=== PATIENT | female | born 1995 | race Caucasian/White ===

== ENCOUNTER → 2019-06-07 11:37 | Outpatient (BNVA) | payer MEDICAID, SELFPAY | PROVIDERS: Family Provider Internal Medicine; PCP Internal Medicine; Visit Provider Counselor Professional | DX: F41.1 Generalized anxiety disorder (principal) | CPT/HCPCS: 90834 ==

== ENCOUNTER → 2019-06-14 08:48 | Outpatient (BNVA) | payer MEDICAID, SELFPAY | PROVIDERS: Family Provider Internal Medicine; PCP Internal Medicine; Visit Provider Counselor Professional | DX: F43.12 Post-traumatic stress disorder, chronic (principal) | CPT/HCPCS: 90834 ==

== ENCOUNTER → 2019-06-21 09:13 | Outpatient (BNVA) | payer MEDICAID, SELFPAY | PROVIDERS: Family Provider Internal Medicine; PCP Internal Medicine; Visit Provider Counselor Professional | DX: F41.1 Generalized anxiety disorder (principal) | CPT/HCPCS: 90834 ==

== ENCOUNTER → 2019-07-03 10:24 | Outpatient (BNVA) | payer MEDICAID, SELFPAY | PROVIDERS: Family Provider Internal Medicine; PCP Internal Medicine; Visit Provider Nurse Practitioner Women's Health | DX: N94.6 Dysmenorrhea, unspecified (principal) | CPT/HCPCS: 81025 ==

== ENCOUNTER → 2019-07-17 10:39 | Outpatient (BNVA) | payer MEDICAID, SELFPAY | PROVIDERS: Family Provider Internal Medicine; PCP Internal Medicine; Visit Provider Counselor Professional | DX: F43.12 Post-traumatic stress disorder, chronic (principal) | CPT/HCPCS: 90834 ==

== ENCOUNTER 2019-07-29 19:52 | Emergency (ER) | payer MEDICAID, SELFPAY ==
[2019-07-29 19:56] VITALS: BP 130/99; PULSE 120; RESP 16; TEMP 37.1; O2SAT 96; BMI 25.8
--- NOTE | 2019-07-29 20:14 | ED_ITS ---
Entered by Rowena Gray, acting as scribe for Jimy Granado DO Jul 29, 2019 19:52 HPI - Head Injury General: Chief complaint: Head Injury Stated complaint: hit head Time Seen by Provider: 07/29/19 20:13 Source: patient Mode of arrival: ambulatory Limitations: no limitations History of Present Illness: HPI Narrative: 24 yo Female presents to ED with complaint of head injury. Pt states that one of her friends told her that she didn't deserve to be happy and she got upset. Pt states that she went into her bathroom and hit her head on the wall. Pt states that she hit the back of her neck on the towel bar and is now experiencing pain. Pt states that she has vomited once since she hit her head. MD Complaint: head injury Onset (ago): hour(s) Mechanism of Injury: other (self injury) Place: home Loss of Consciousness: no Location of injury: occipital Severity scale (1-10): 5 Radiation: neck Other Injuries: none Associated symptoms: Reports vomiting; Deny confusion, nausea, neck pain, syncope or vertigo Review of Systems Const: Denies: fever, chills, body aches, fatigue, malaise or night sweats Eyes: Denies: change in vision or blurry vision ENMT: Denies: throat pain, oral sores/lesions, dental pain, nasal discharge or nasal congestion Card: Denies: chest pain, palpitations, irregular heart rhythm, edema, syncope, shortness of breath on exertion, shortness of breath when lying down or leg pain with exertion Resp: Denies: shortness of breath, productive cough, non-productive cough or wheezing GI: Reports: vomiting; Denies: abdominal pain, nausea, vomiting blood, coffee grounds in vomit, difficulty swallowing, heartburn/indigestion, diarrhea, constipation, cramping, blood in stool or black tarry stool : Denies: flank pain, painful urination, urinary frequency, urinary urgency, urinary incontinence or blood in urine Musc: Denies: neck pain, back pain, extremity pain, extremity swelling, joint pain or joint swelling Skin/Breast: Denies: rash, itching or redness Neuro: Denies: headache, numbness in extremities, weakness in extremities, changes in sensation, lack of coordination, difficulty walking, frequent falls, dizziness, vertigo or confusion Psych: Denies: anxiety, depression, loss of interest, visual hallucinations, auditory hallucinations, suicidal ideation or homicidal ideation Endo: Denies: excessive urination, excessive thirst, tired all the time or cold intolerance [place]/Lymph: Denies: easy bruising, easy bleeding, petechiae, enlarged lymph nodes or tender lymph nodes PFSH ED PFSH: Medical History ADHD Bipolar 2 disorder Chronic migraine Dysmenorrhea GERD (gastroesophageal reflux disease) Hypothyroidism PTSD (post-traumatic stress disorder) Surgical History H/O foot surgery (~10/2018) left foot- flat foot [place] teeth extracted Family History Grandmother Heart disease MATERNAL Breast cancer MATERNAL Diabetes MATERNAL Mother Breast cancer Diabetes Family/Other Diabetes COUSIN Family history of thyroid problem PATERNAL UNCLE Patient denies medical problems Hypercholesterolemia, Ovarian Cancer, Uterine Cancer, Colon Cancer Grandfather Stroke PATERNAL Other Hypertension Social History Smoking and tobacco status: never smoked Alcohol intake: never Physical Exam Const: COMMON NORMALS: average body habitus, oriented x3 and alert GENERAL APPEARANCE: cooperative, comfortable, well kempt and well developed NUTRITIONAL APPEARANCE: obese ORIENTATION/CONSCIOUSNESS: Yes awake, Yes oriented to person and Yes oriented to place HENMT: COMMON NORMALS: normocephalic, head/scalp atraumatic, EAC's normal, TM's normal bilaterally, external nose normal, moist oral mucous membranes and oropharynx normal HEAD & SCALP: normocephalic and atraumatic NOSE: external nose normal EXTERNAL AUDITORY CANAL: EAC's normal TYMPANIC MEMBRANE: TM's normal bilaterally MOUTH: oral and palatal mucosa normal, lip normal and tongue normal THROAT: posterior oropharynx normal and tonsils normal Eye: COMMON NORMALS: PERRL, EOMs intact bilaterally, conjunctivae normal and no scleral icterus CONJUNCTIVA: Yes conjunctivae normal PUPIL: Yes PERRL Neck/C-Spine: COMMON NORMALS: full ROM, no lymphadenopathy, supple, no meningeal signs and thyroid normal THYROID: thyroid normal and asymmetrical Lymph: LYMPHATIC: no lymphadenopathy noted Resp: COMMON NORMALS: normal respiratory effort, no retractions, no use of accessory muscles and clear to auscultation bilaterally AUSCULTATION: clear to auscultation bilaterally Cardio: COMMON NORMALS: regular rate and regular rhythm RATE: regular rate RHYTHM: regular rhythm HEART SOUNDS: no murmurs GI: COMMON NORMALS: normal to inspection, nondistended, normoactive bowel sounds, soft to palpation and no hepatosplenomegaly PALPATION: Yes soft and Yes no hepatosplenomegaly : COMMON NORMALS: Yes no CVA tenderness BLADDER/KIDNEY EXAM: Yes no CVA tenderness Back/Pelvis: COMMON NORMALS: no CVA tenderness LUMBAR SPINE/LOWER BACK: Yes normal to inspection Extremity: COMMON NORMALS: no clubbing, cyanosis or edema, no calf tenderness and no pedal edema Neuro: COMMON NORMALS: oriented x3 SENSORIUM/ORIENTATION: Yes alert, Yes oriented to person and Yes oriented to place MENINGEAL SIGNS: Yes no meningeal signs Psych: APPEARANCE: Yes well kempt Skin: COMMON NORMALS: no rashes or lesions noted and skin turgor normal GENERAL SKIN EXAM: no rashes or lesions noted and turgor normal Course Vital Signs: Vital signs: Vital Signs Temperature 98.8 F 07/29/19 19:56 Pulse Rate 98 07/29/19 21:09 Respiratory Rate 16 07/29/19 19:56 Blood Pressure 118/85 07/29/19 21:09 Pulse Oximetry 96 07/29/19 21:09 MDM - Head Injury MDM Narrative: Medical decision making narrative: Normal neurological exam no evidence of any soft tissue injury or swelling. We will go ahead and discharge home with close head injury precautions has any problems return. Imaging Data^: Other Xray: Radiologist's impression: PROCEDURE INFORMATION: Exam: XR Cervical Spine, 2 or 3 Views Exam date and time: 07/29/2019 8:51 PM Age: 24 years old Clinical indication: Neck pain TECHNIQUE: Imaging protocol: XR of the cervical spine, 3 views. Other technique: AP, lateral and AP open mouth odontoid views of the cervical spine are submitted. COMPARISON: CT Cervical Spine wo* [id number] 03/12/2017 11:09 PM FINDINGS: Vertebrae: Normal. No acute fracture. Normal alignment. Soft tissues: Normal. XR/XR cervical spine 3V* [id number] IMPRESSION: No acute cervical spinal bony abnormality identified. Dictated By:Joseph Rojo MD Discharge Plan Discharge Patient Disposition: Home, Self-Care Clinical Impression: Acute neck pain, Minor head injury without loss of consciousness Condition: Stable Prescriptions: No Action levothyroxine 25 mcg capsule 25 mcg PO DAILY RF: 0 omeprazole 20 mg capsule,delayed release(DR/EC) 20 mg PO DAILY RF: 0 atomoxetine [Strattera] 60 mg capsule 60 mg PO DAILY RF: 0 loratadine [Claritin] 10 mg tablet 10 mg PO DAILY RF: 0 acetaminophen [Tylenol Extra Strength] 500 mg tablet 1,000 mg PO Q4H PRN (Reason: Pain) RF: 0 polyethylene glycol 3350 [Miralax] 17 gram/dose powder 17 gm PO DAILY PRN (Reason: Constipation) RF: 0 ondansetron HCl [Zofran] 4 mg tablet 4 mg PO Q8H PRN (Reason: Nausea) RF: 0 lamotrigine 100 mg tablet 50 mg PO BID RF: 0 hydroxyzine HCl 25 mg tablet 25 mg PO BID RF: 0 ranitidine HCl [Zantac] 150 mg tablet 150 mg PO DAILY PRN (Reason: Indigestion) RF: 0 medroxyprogesterone [Depo-Provera] 150 mg/mL suspension 150 mg IM .every 3 months Qty: 1 RF: 3 terbinafine HCl 1 % Cream 1 applic TOPICAL BID RF: 0 carbamazepine 200 mg Tablet Extended Release 12 Hr 200 mg PO BID RF: 0 guanfacine 1 mg Tablet 1 mg PO BID RF: 0 hydroxyzine HCl 25 mg Tablet 75 mg PO DAILY RF: 0 lamotrigine 100 mg Tablet 200 mg PO BEDTIME RF: 0 naproxen 500 mg Tablet 500 mg PO BID PRN (Reason: Pain) RF: 0 amoxicillin-pot clavulanate 500-125 mg Tablet 1 tab PO BID RF: 0 Constulose 10 gram/15 mL Solution 10 g PO DAILY PRN (Reason: Constipation) RF: 0 Abilify Maintena 400 mg Suspension,Extended Rel Syring 400 mg IM PER PKG DIR RF: 0 Discharge Orders: Discharge Order (Routine); Ordered 07/29/19 Ordered By: Jimy Granado Referrals: Gene Chase DO [Primary Care Provider] - Discharge Diet: Usual diet Discharge Activity: Resume usual activity Discharge Date/Time: 07/29/19 21:09 Coding Level of Care Code ED Bioinformatics Research Technician for Chg Fwd Exam Comprehensive The documentation recorded by the Marina montes Carmen, accurately reflects the service I personally performed and the decisions made by Loy moreland Curtis L, Jul 29, 2019 19:52
--- NOTE | 2019-07-29 20:29 | XRR_ITS ---
PROCEDURE INFORMATION: Exam: XR Cervical Spine, 2 or 3 Views Exam date and time: 07/29/2019 8:51 PM Age: 24 years old Clinical indication: Neck pain TECHNIQUE: Imaging protocol: XR of the cervical spine, 3 views. Other technique: AP, lateral and AP open mouth odontoid views of the cervical spine are submitted. COMPARISON: CT Cervical Spine wo* [id number] 03/12/2017 11:09 PM FINDINGS: Vertebrae: Normal. No acute fracture. Normal alignment. Soft tissues: Normal. XR/XR cervical spine 3V* [id number] IMPRESSION: No acute cervical spinal bony abnormality identified.
--- NOTE | 2019-07-29 20:44 | PC.NURSE ---
portable xray at bedside.
[2019-07-29 21:09] VITALS: BP 118/85; PULSE 98; O2SAT 96
== END 2019-07-29 21:09 | disposition home or self-care (01) ==
PROVIDERS: Emergency Provider Family Medicine; Family Provider Internal Medicine; PCP Internal Medicine
DX: S09.90XA Unspecified injury of head, initial encounter (principal); M54.2 Cervicalgia; E03.9 Hypothyroidism, unspecified; E66.9 Obesity, unspecified; Z68.25 Body mass index [BMI] 25.0-25.9, adult; W22.01XA Walked into wall, initial encounter; Y92.002 Bathroom of unspecified non-institutional (private) residence as the place of occurrence of the external cause
CPT/HCPCS: 12345; 72040; 99281; 99282

== ENCOUNTER → 2019-08-07 12:47 | Outpatient (BNVA) | payer MEDICAID, SELFPAY | PROVIDERS: Family Provider Internal Medicine; PCP Internal Medicine; Visit Provider Counselor Professional | DX: F31.81 Bipolar II disorder (principal) | CPT/HCPCS: 90834 ==

== ENCOUNTER → 2019-08-22 16:01 | Outpatient (BNVA) | payer MEDICAID, SELFPAY | PROVIDERS: Family Provider Internal Medicine; PCP Internal Medicine; Visit Provider Counselor Professional | DX: F90.9 Attention-deficit hyperactivity disorder, unspecified type (principal); F43.10 Post-traumatic stress disorder, unspecified; F31.81 Bipolar II disorder | CPT/HCPCS: 90834 ==

== ENCOUNTER 2019-08-27 19:58 | Emergency (ER) | payer MEDICAID, SELFPAY ==
[2019-08-27 19:59] VITALS: BP 123/85; PULSE 112; RESP 16; TEMP 37.1; O2SAT 97; BMI 25.1
--- NOTE | 2019-08-27 20:27 | XR_ITS ---
WS: [id number] FEMUR RIGHT TECHNIQUE: 2 views of the right femur CLINICAL INFORMATION: FALL/INJURY COMPARISON: None. FINDINGS: Normal right femur. No acute fractures. XR/XR femur RT min 2V* [id number] IMPRESSION: Normal femur
--- NOTE | 2019-08-27 20:30 | W.ED.FALL ---
HPI - Fall General: Chief Complaint: Fall Stated Complaint: fall, hit head Time Seen by Provider: 08/27/19 20:25 History of Present Illness: HPI Narrative: Kanika is a nice 24-year-old female who comes in after she slipped and fell in the shower. She hit the back of her head but had no loss of consciousness. She is not felt dazed and she remembers all the incident. She denies any neck pain. She also complains of right lateral thigh pain. She states that that is her greatest complaint at this time. She denies any other injuries to any other parts of her body. Patient is on blood thinners, she does not feel nauseated and otherwise has no complaints. Associated symptoms-after fall: Denies abdominal pain, chest pain, confusion, difficulty walking, headache(s), hematuria, neck pain or vertigo Review of Systems General: Reports: other (negative unless marked) Const: Denies: fever, chills, body aches, fatigue, malaise or diaphoresis Eyes: Denies: change in vision or blurry vision ENMT: Denies: throat pain, painful swallowing, hoarseness, ear pain, ear discharge, Change in hearing or nasal discharge Card: Denies: chest pain, palpitations, irregular heart rhythm, syncope, pre-syncope, shortness of breath on exertion or shortness of breath when lying down Resp: Denies: shortness of breath, productive cough, non-productive cough, wheezing, coughing up blood or chest congestion GI: Denies: abdominal pain, nausea, vomiting, vomiting blood, coffee grounds in vomit, diarrhea, constipation, cramping, blood in stool or black tarry stool : Denies: flank pain, painful urination, urinary frequency, urinary urgency, decreased urine ouput, urinary incontinence or blood in urine Musc: Reports: extremity pain; Denies: neck pain, back pain, extremity swelling, joint pain, joint swelling, joint warmth or joint stiffness Skin/Breast: Denies: rash, skin tenderness or yellow skin Neuro: Denies: headache, numbness in extremities, weakness in extremities, changes in sensation, lack of coordination, difficulty walking, dizziness, vertigo or confusion Endo: Denies: excessive thirst, tired all the time, cold intolerance, excessive sweating, flushing or hot flashes [place]/Lymph: Denies: easy bruising, easy bleeding, petechiae or enlarged lymph nodes All/Imm: Denies: hives, throat swelling, tongue swelling, facial swelling or acute wheezing PFSH ED PFSH: Medical History ADHD Bipolar 2 disorder Chronic migraine Dysmenorrhea GERD (gastroesophageal reflux disease) Hypothyroidism PTSD (post-traumatic stress disorder) Surgical History H/O foot surgery (~10/2018) left foot- flat foot [place] teeth extracted Family History Grandmother Heart disease MATERNAL Breast cancer MATERNAL Diabetes MATERNAL Mother Breast cancer Diabetes Family/Other Diabetes COUSIN Family history of thyroid problem PATERNAL UNCLE Patient denies medical problems Hypercholesterolemia, Ovarian Cancer, Uterine Cancer, Colon Cancer Grandfather Stroke PATERNAL Other Hypertension Social History Smoking and tobacco status: never smoked Alcohol intake: never Physical Exam Const: COMMON NORMALS: no apparent distress, oriented x3, no limitations, healthy appearing and well nourished EXAM LIMITATIONS: no altered mental status GENERAL APPEARANCE: cooperative, well kempt and well developed ORIENTATION/CONSCIOUSNESS: Yes awake HENMT: COMMON NORMALS: normocephalic, head/scalp atraumatic, hearing grossly normal bilaterally, external ears normal, EAC's normal, external nose normal and moist oral mucous membranes HEAD & SCALP: normal to inspection, normocephalic and atraumatic FACE & SINUS: normal facial exam and face symmetric NOSE: external nose normal and nares normal EXTERNAL EAR: Yes external ears normal EXTERNAL AUDITORY CANAL: EAC's normal MOUTH: oral and palatal mucosa normal and tongue normal Eye: COMMON NORMALS: PERRL, EOMs intact bilaterally, conjunctivae normal and no scleral icterus GENERAL EYE: normal appearance of both eyes and normal light reflex CONJUNCTIVA: Yes conjunctivae normal SCLERA: sclerae normal CORNEA: Yes corneas normal PUPIL: Yes PERRL DIRECT OPHTHALMOSCOPY: Yes normal light reflex Neck/C-Spine: COMMON NORMALS: full ROM, no lymphadenopathy, supple, no meningeal signs and no JVD GENERAL: Yes normal visual inspection and Yes trachea midline CERVICAL SPINE: Yes cervical ROM normal Chest: COMMONS NORMALS: inspection of chest normal and palpation of chest normal Resp: COMMON NORMALS: normal respiratory effort, no retractions, no use of accessory muscles and clear to auscultation bilaterally EFFORT & INSPECTION: Yes able to speak in complete sentences AUSCULTATION: clear to auscultation bilaterally Cardio: COMMON NORMALS: no JVD, regular rate, regular rhythm, S1 normal heart sound, S2 normal heart sound, no gallops, no clicks, no murmurs and no rub JUGULAR VENOUS DISTENTION: no JVD RATE: regular rate RHYTHM: regular rhythm HEART SOUNDS: S1 normal and S2 normal GI: COMMON NORMALS: soft to palpation, non-tender, no hepatosplenomegaly and no masses INSPECTION: Yes normal to inspection PALPATION: Yes soft and Yes no hepatosplenomegaly : COMMON NORMALS: Yes no CVA tenderness BLADDER/KIDNEY EXAM: Yes no CVA tenderness Back/Pelvis: COMMON NORMALS: no CVA tenderness, thoracic and lumbar spine normal to inspection, no thoracic nor lumbar tenderness and thoraco-lumbar ROM normal Extremity: COMMON NORMALS: normal to inspection, full ROM, normal capillary refill, no joint enlargement, no clubbing, cyanosis or edema and no calf tenderness Neuro: COMMON NORMALS: oriented x3, CN's II-XII intact bilaterally, moves all extremities, no focal motor deficits and no sensory deficits noted MENINGEAL SIGNS: Yes no meningeal signs Psych: COMMON NORMALS: mental status grossly normal, thought process normal, cooperative, affect normal, speech normal and activity/motor behavior normal APPEARANCE: Yes well kempt SPEECH: Yes normal speech THOUGHT PROCESS: normal thought process Skin: COMMON NORMALS: no rashes or lesions noted, skin turgor normal, no jaundice, no petechiae and no mottling GENERAL SKIN EXAM: no rashes or lesions noted and turgor normal Course Vital Signs: Vital signs: Vital Signs Temperature 98.7 F 08/27/19 19:59 Pulse Rate 112 H 08/27/19 19:59 Respiratory Rate 16 08/27/19 19:59 Blood Pressure 123/85 08/27/19 19:59 Pulse Oximetry 97 08/27/19 19:59 MDM - Fall MDM Narrative: Medical decision making narrative: Arrival - the [place] head CT rules/algorithm was applied and the patient did not meet criteria for CT of the head. I reviewed this with her and she is fine with that and is okay with holding that test at this time. Discharge -patient may have a mild concussion at most. X-ray of her thigh shows no evidence of fracture. Patient agrees to go home with concussion instructions and return if necessary. At this time I see no evidence of intracranial hemorrhage by exam or by history. Again the [place] head CT rules followed. Patient agrees to follow-up with her regular doctor for recheck. Imaging Data^: Right femur: My impression: No acute fractures or dislocations. Discharge Plan Discharge Patient Disposition: Home, Self-Care Clinical Impression: Contusion Qualifiers: Encounter type: initial encounter Contusion area: thigh Laterality: right Qualified Code(s): S70.11XA - Contusion of right thigh, initial encounter Concussion Qualifiers: Encounter type: initial encounter Loss of consciousness presence/duration: without LOC Qualified Code(s): S06.0X0A - Concussion without loss of consciousness, initial encounter Condition: Stable Prescriptions: No Action levothyroxine 25 mcg capsule 25 mcg PO DAILY RF: 0 atomoxetine [Strattera] 60 mg capsule 60 mg PO DAILY RF: 0 loratadine [Claritin] 10 mg tablet 10 mg PO DAILY RF: 0 acetaminophen [Tylenol Extra Strength] 500 mg tablet 1,000 mg PO Q4H PRN (Reason: Pain) RF: 0 polyethylene glycol 3350 [Miralax] 17 gram/dose powder 17 gm PO DAILY PRN (Reason: Constipation) RF: 0 ondansetron HCl [Zofran] 4 mg tablet 4 mg PO Q8H PRN (Reason: Nausea) RF: 0 lamotrigine 100 mg tablet 50 mg PO BID RF: 0 hydroxyzine HCl 25 mg tablet 25 mg PO BID RF: 0 medroxyprogesterone [Depo-Provera] 150 mg/mL suspension 150 mg IM .every 3 months Qty: 1 RF: 3 melatonin 3 mg Tablet 3 mg PO BEDTIME RF: 0 pantoprazole 40 mg Tablet,Delayed Release (Dr/Ec) 40 mg PO DAILY RF: 0 Aimovig Autoinjector 140 mg/mL Auto-Injector SUBCUT DIRECTED RF: 0 terbinafine HCl 1 % Cream 1 applic TOPICAL BID RF: 0 carbamazepine 200 mg Tablet Extended Release 12 Hr 200 mg PO BID RF: 0 guanfacine 1 mg Tablet 1 mg PO BID RF: 0 hydroxyzine HCl 25 mg Tablet 75 mg PO DAILY RF: 0 lamotrigine 100 mg Tablet 200 mg PO BEDTIME RF: 0 naproxen 500 mg Tablet 500 mg PO BID PRN (Reason: Pain) RF: 0 lactulose [Constulose] 10 gram/15 mL Solution 10 g PO DAILY PRN (Reason: Constipation) RF: 0 Abilify Maintena 400 mg Suspension,Extended Rel Syring 400 mg IM PER PKG DIR RF: 0 Discharge Orders: Discharge Order (Routine); Ordered 08/27/19 Ordered By: Alba Shea Referrals: Sandy Rutherford [Primary Care Provider] - Gene Chase DO [Family Provider] - 1-3 days Discharge Diet: Advance as tolerated Discharge Activity: Increase activity as tolerated Patient Instructions: Concussion (ED), Minor Head Injury (ED), Contusion in Adults (ED) Activity Restrictions/Additional Instructions: Please return to the ER immediately for any of the signs or symptoms listed on your discharge instruction sheets, worsening/changing of your symptoms, you are not getting better as quickly as expected, or for ANY other cause or concerns. Coding Level of Care Code ED [employer] Senior Sergeant for Chg Fwd Exam Comprehensive
== END 2019-08-27 20:56 | disposition home or self-care (01) ==
PROVIDERS: Emergency Provider Emergency Medicine; Family Provider Internal Medicine; PCP Nurse Practitioner Family
DX: S06.0X0A Concussion without loss of consciousness, initial encounter (principal); S70.11XA Contusion of right thigh, initial encounter; W18.2XXA Fall in (into) shower or empty bathtub, initial encounter; E03.9 Hypothyroidism, unspecified; K21.9 Gastro-esophageal reflux disease without esophagitis
CPT/HCPCS: 12345; 73552; 99281; 99282

== ENCOUNTER → 2019-08-29 08:32 | Outpatient (BNVA) | payer MEDICAID, SELFPAY | PROVIDERS: Family Provider Internal Medicine; PCP Nurse Practitioner Family; Visit Provider Counselor Professional | DX: F31.81 Bipolar II disorder (principal); F43.10 Post-traumatic stress disorder, unspecified | CPT/HCPCS: 90834 ==

== ENCOUNTER → 2019-09-06 09:07 | Outpatient (BNVA) | payer MEDICAID, SELFPAY | PROVIDERS: Family Provider Internal Medicine; PCP Nurse Practitioner Family; Visit Provider Counselor Professional | DX: F43.12 Post-traumatic stress disorder, chronic (principal); F31.81 Bipolar II disorder; F90.9 Attention-deficit hyperactivity disorder, unspecified type | CPT/HCPCS: 90834 ==

== ENCOUNTER → 2019-09-14 07:21 | Outpatient (BNVA) | payer MEDICAID, SELFPAY | PROVIDERS: Family Provider Internal Medicine; PCP Nurse Practitioner Family; Visit Provider Counselor Professional | DX: F31.81 Bipolar II disorder (principal); F43.10 Post-traumatic stress disorder, unspecified; F90.9 Attention-deficit hyperactivity disorder, unspecified type | CPT/HCPCS: 90834 ==

== ENCOUNTER → 2019-09-21 08:14 | Outpatient (BNVA) | payer MEDICAID, SELFPAY | PROVIDERS: Family Provider Internal Medicine; Visit Provider Counselor Professional | DX: F31.81 Bipolar II disorder (principal); F43.10 Post-traumatic stress disorder, unspecified | CPT/HCPCS: 90834 ==

== ENCOUNTER → 2019-09-28 08:07 | Outpatient (BNVA) | payer MEDICAID, SELFPAY | PROVIDERS: Family Provider Internal Medicine; Visit Provider Counselor Professional | DX: F31.81 Bipolar II disorder (principal); F43.11 Post-traumatic stress disorder, acute; F90.1 Attention-deficit hyperactivity disorder, predominantly hyperactive type | CPT/HCPCS: 90834 ==

== ENCOUNTER → 2019-10-15 07:56 | Outpatient (BNVA) | payer MEDICAID, SELFPAY | PROVIDERS: Family Provider Internal Medicine; PCP Nurse Practitioner Family; Visit Provider Specialist | DX: G43.711 Chronic migraine without aura, intractable, with status migrainosus (principal) | CPT/HCPCS: 99213 ==

== ENCOUNTER → 2019-10-17 08:26 | Outpatient (BNVA) | payer MEDICAID, SELFPAY | PROVIDERS: Family Provider Internal Medicine; PCP Nurse Practitioner Family; Visit Provider Counselor Professional | DX: F43.12 Post-traumatic stress disorder, chronic (principal); F31.81 Bipolar II disorder; F90.9 Attention-deficit hyperactivity disorder, unspecified type | CPT/HCPCS: 90834 ==

== ENCOUNTER → 2019-10-25 08:15 | Outpatient (BNVA) | payer MEDICAID, SELFPAY | PROVIDERS: Family Provider Internal Medicine; PCP Nurse Practitioner Family; Visit Provider Counselor Professional | DX: F90.1 Attention-deficit hyperactivity disorder, predominantly hyperactive type (principal); F43.11 Post-traumatic stress disorder, acute; F31.81 Bipolar II disorder | CPT/HCPCS: 90834 ==

== ENCOUNTER → 2019-11-07 07:56 | Outpatient (BNVA) | payer MEDICAID, SELFPAY | PROVIDERS: Family Provider Internal Medicine; PCP Nurse Practitioner Family; Visit Provider Counselor Professional | DX: F43.12 Post-traumatic stress disorder, chronic (principal); F31.81 Bipolar II disorder; F90.9 Attention-deficit hyperactivity disorder, unspecified type | CPT/HCPCS: 90834 ==

== ENCOUNTER → 2019-12-13 09:10 | Outpatient (BNVA) | payer MEDICAID, SELFPAY | PROVIDERS: Family Provider Internal Medicine; PCP Nurse Practitioner Family; Visit Provider Counselor Professional | DX: F43.12 Post-traumatic stress disorder, chronic (principal); F31.81 Bipolar II disorder; F90.9 Attention-deficit hyperactivity disorder, unspecified type | CPT/HCPCS: 90834 ==

== ENCOUNTER → 2019-12-26 09:09 | Outpatient (BNVA) | payer MEDICAID, SELFPAY | PROVIDERS: Family Provider Internal Medicine; PCP Nurse Practitioner Family; Visit Provider Counselor Professional | DX: F43.12 Post-traumatic stress disorder, chronic (principal); F31.81 Bipolar II disorder; F90.9 Attention-deficit hyperactivity disorder, unspecified type | CPT/HCPCS: 90834 ==

== ENCOUNTER 2019-12-28 18:49 | Emergency (ER) | payer MEDICAID, SELFPAY ==
[2019-12-28 19:25] VITALS: BP 115/69; PULSE 113; RESP 18; TEMP 37.1; O2SAT 95; BMI 26.9
--- NOTE | 2019-12-28 19:47 | XR_ITS ---
WS: [id number] EXAM: AP CHEST: PORTABLE UPRIGHT DATE OF EXAM: 12/28/2019, 2005 hours COMPARISON: Chest x-ray from 02/23/2019 HISTORY: Patient is 24 years old with severe cough. FINDINGS: The cardiac silhouette is normal in size. The mediastinal contours are normal. The pulmonary vas cularity is normal. There has been interval development of bilateral patchy infiltrates suggesting b ilateral pneumonia, worse on the right than the left. There is no effusion or pneumothorax. No acut e bony abnormality is seen. XR/XR chest 1V portable [id number] IMPRESSION: Findings of bilateral pneumonia, right worse than left. Please correlate for at ypical pneumonitis such as a viral pneumonia.
--- NOTE | 2019-12-28 19:49 | W.ED.URI ---
HPI - URI/Sore Throat General: Chief Complaint: Upper Respiratory Infection Stated Complaint: difficulty breathing/ cough Time Seen by Provider: 12/28/19 19:38 Source: patient Mode of arrival: ambulatory Limitations: no limitations History of Present Illness: HPI Narrative: Patient presents with 2-week episodes of coughing. Patient has had 2 COVID tests and both were negative. Patient appears well. Patient has frequent spells of coughing. Skin is warm and dry color is pink. Vital signs are normal. Review of Systems General: Reports: 10 or more systems reviewed and unremarkable except in HPI and below Resp: Reports: non-productive cough PFS ED PFSH: Medical History (Updated 12/28/19 @ 20:20 by AGUSTIN Uribe) ADHD Bipolar 2 disorder Chronic migraine GERD (gastroesophageal reflux disease) Hypothyroidism No pertinent past medical history Denies: diabetes, asthma, hypertension, seizures, DVT/PE PCP: AGUSTIN Triana PTSD (post-traumatic stress disorder) Surgical History H/O foot surgery (~10/2018) left foot- flat foot [place] teeth extracted Family History Grandmother Heart disease Maternal Breast cancer maternal; age at diagnosis unknown Mother Diabetes Ovarian cancer diagnosed at age 43 Family/Other Family history of thyroid problem Paternal uncle Grandfather Stroke Paternal Hypertension Paternal Denies family history of Colon cancer Hyperlipidemia Uterine cancer Social History Smoking and tobacco status: never smoked Alcohol intake: never Additional social history: - Tobacco Use: Denies, never smoked Drug Use: Denies Alcohol Use: Denies Work/Study Status: 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 She does get care through the [facility] Physical Exam Const: COMMON NORMALS: no acute distress and patient oriented x3 GENERAL APPEARANCE: cooperative HENMT: COMMON NORMALS: normocephalic, TM's normal bilaterally and Normal external nose present HEAD & SCALP: normal to inspection and normocephalic NOSE: Normal external nose present TYMPANIC MEMBRANE: TM's normal bilaterally MOUTH: Normal oral and palatal mucosa present THROAT: posterior oropharynx normal Eye: GENERAL EYE: appearance normal, both eyes and all related structures Neck/C-Spine: COMMON NORMALS: full ROM Chest: COMMONS NORMALS: normal inspection of the chest Resp: COMMON NORMALS: normal respiratory effort EFFORT & INSPECTION: Yes able to speak in complete sentences AUSCULTATION: diminished lung sounds Cardio: COMMON NORMALS: regular rate and regular rhythm RATE: regular rate RHYTHM: regular rhythm GI: COMMON NORMALS: non-tender Back/Pelvis: COMMON NORMALS: thoracic and lumbar spine normal to inspection Extremity: COMMON NORMALS: normal to inspection Neuro: COMMON NORMALS: patient oriented x3 and moves all extremities Psych: COMMON NORMALS: mental status grossly normal and cooperative Skin: COMMON NORMALS: no rashes or lesions noted GENERAL SKIN EXAM: no rashes or lesions noted Course Vital Signs: Vital signs: Vital Signs Temperature 98.8 F 12/28/19 19:25 Pulse Rate 110 H 12/28/19 20:20 Respiratory Rate 20 H 12/28/19 20:20 Blood Pressure 128/85 12/28/19 20:10 Pulse Oximetry 99 12/28/19 20:20 MDM - URI/Sore Throat MDM Narrative: Medical decision making narrative: Patient presents with persistent coughing for the last 2 weeks. Patient has had reports 2 previous COVID tests were negative. Exam notes lungs are decreased on auscultation. Vital signs are normal. Skin is warm and dry color is pink. Patient has frequent coughing episodes. Differential diagnosis includes but not limited to asthma, pneumonia, bronchitis. X-ray noted no pneumonia. Patient was given a nebulizer treatment with improvement in coughing episodes. Patient was ordered Solu-Medrol by IV. I feel patient probably has maybe a mild case of asthma although we will treat at this time for acute bronchitis. Recommend follow-up with primary care. Return to the ER for worsening symptoms. Patient reports understanding and agreed to plan. Discharge Plan Discharge Patient Disposition: Home Clinical Impression: Bronchitis Condition: Stable Prescriptions: New albuterol sulfate 90 mcg/actuation HFA aerosol inhaler 2 inh INHALATION Q4H PRN (Reason: shortness of breath or wheezing, cough) Qty: 18 RF: 0 doxycycline hyclate 100 mg tablet 100 mg PO BID 7 Days Qty: 14 RF: 0 prednisone 20 mg tablet 20 mg PO BID 3 Days Qty: 6 RF: 0 No Action levothyroxine 25 mcg capsule 25 mcg PO DAILY RF: 0 atomoxetine [Strattera] 60 mg capsule 60 mg PO DAILY RF: 0 loratadine [Claritin] 10 mg tablet 10 mg PO DAILY RF: 0 acetaminophen [Tylenol Extra Strength] 500 mg tablet 1,000 mg PO Q4H PRN (Reason: Pain) RF: 0 polyethylene glycol 3350 [Miralax] 17 gram/dose powder 17 gm PO DAILY PRN (Reason: Constipation) RF: 0 ondansetron HCl [Zofran] 4 mg tablet 4 mg PO Q8H PRN (Reason: Nausea) RF: 0 lamotrigine 100 mg tablet 50 mg PO BID RF: 0 hydroxyzine HCl 25 mg tablet 25 mg PO BID RF: 0 guanfacine 1 mg tablet 1 mg PO DAILY RF: 0 amitriptyline 10 mg tablet 30 mg PO .HS Qty: 90 RF: 6 lithium carbonate 150 mg capsule 150 mg PO TID RF: 0 norethindrone-e.estradiol-iron [Microgestin Fe 1.5/30 (28)] 1.5 mg-30 mcg (21)/75 mg (7) tablet 1 tab PO DAILY Qty: 28 RF: 0 pantoprazole 40 mg Tablet,Delayed Release (Dr/Ec) 40 mg PO DAILY RF: 0 terbinafine HCl 1 % Cream 1 applic TOPICAL BID RF: 0 hydroxyzine HCl 25 mg Tablet 75 mg PO DAILY RF: 0 lamotrigine 100 mg Tablet 200 mg PO BEDTIME RF: 0 lactulose [Constulose] 10 gram/15 mL Solution 10 g PO DAILY PRN (Reason: Constipation) RF: 0 Abilify Maintena 400 mg Suspension,Extended Rel Syring 400 mg IM PER PKG DIR RF: 0 Discharge Orders: Discharge Order (Routine); Ordered 12/28/19 Ordered By: Vipul Larson Referrals: Sandy Rutherford FNP [Primary Care Provider] - Gene Chase DO [Family Provider] - Discharge Diet: Usual diet Discharge Activity: Increase activity as tolerated Patient Instructions: Acute Bronchitis (ED) Activity Restrictions/Additional Instructions: Drink plenty of water with medication. Use albuterol inhaler 2 puffs every 4 hours as needed cough or wheezing. Take antibiotics as directed. Take steroid 1 tablet twice a day for the next 3 days. Follow-up with primary care in 1 week. Return to the emergency department for new concerns. Coding Level of Care Code ED Air Conditioning Manager for Chg Fwd Exam Comprehensive
[2019-12-28] MEDS: sodium chloride 0.9% 500 ML 999 ML IV (20:06)
[2019-12-28 20:10] VITALS: BP 128/85; PULSE 115; RESP 19; O2SAT 98
[2019-12-28 20:16] VITALS: PULSE 106; RESP 22; O2SAT 99
[2019-12-28] MEDS: ipratropium-albuterol 3 mL Neb INHALATION (20:16)
[2019-12-28 20:20] VITALS: PULSE 110; RESP 20; O2SAT 99
[2019-12-28 21:26] VITALS: PULSE 62; RESP 18; TEMP 36.6; O2SAT 98
== END 2019-12-28 21:27 | disposition home or self-care (01) ==
PROVIDERS: Emergency Provider Nurse Practitioner Family; Family Provider Internal Medicine; PCP Nurse Practitioner Family
DX: J40 Bronchitis, not specified as acute or chronic (principal)
CPT/HCPCS: 12345; 71045; 94640; 96374; 96375; 99283; J2930; J3535; J7040

== ENCOUNTER → 2020-01-25 10:05 | Outpatient (BNVA) | payer MEDICAID, SELFPAY | PROVIDERS: Family Provider Internal Medicine; PCP Nurse Practitioner Family; Visit Provider Obstetrics & Gynecology | DX: N94.6 Dysmenorrhea, unspecified (principal) | CPT/HCPCS: 76856 ==

== ENCOUNTER → 2020-02-11 08:51 | Outpatient (BNVA) | payer MEDICAID, SELFPAY | PROVIDERS: Family Provider Internal Medicine; PCP Nurse Practitioner Family; Visit Provider Counselor Professional | DX: F43.12 Post-traumatic stress disorder, chronic (principal); F31.81 Bipolar II disorder; F90.9 Attention-deficit hyperactivity disorder, unspecified type | CPT/HCPCS: 90834 ==

== ENCOUNTER → 2020-02-18 09:01 | Outpatient (BNVA) | payer MEDICAID, SELFPAY | PROVIDERS: Family Provider Internal Medicine; PCP Nurse Practitioner Family; Visit Provider Counselor Professional | DX: F43.12 Post-traumatic stress disorder, chronic (principal); F31.81 Bipolar II disorder; F90.9 Attention-deficit hyperactivity disorder, unspecified type | CPT/HCPCS: 90834 ==

== ENCOUNTER → 2020-02-29 08:28 | Outpatient (BNVA) | payer MEDICAID, SELFPAY | PROVIDERS: Family Provider Internal Medicine; PCP Nurse Practitioner Family; Visit Provider Counselor Professional | DX: F31.81 Bipolar II disorder (principal); F43.10 Post-traumatic stress disorder, unspecified | CPT/HCPCS: 90834 ==

== ENCOUNTER → 2020-03-28 08:16 | Outpatient (BNVA) | payer MEDICAID, SELFPAY | PROVIDERS: Family Provider Internal Medicine; PCP Nurse Practitioner Family; Visit Provider Counselor Professional | DX: F43.12 Post-traumatic stress disorder, chronic (principal) | CPT/HCPCS: 90834 ==

== ENCOUNTER → 2020-04-11 10:00 | Outpatient (BNVA) | payer MEDICAID, SELFPAY | PROVIDERS: Family Provider Internal Medicine; PCP Nurse Practitioner Family; Visit Provider Counselor Professional | DX: F43.12 Post-traumatic stress disorder, chronic (principal); F31.81 Bipolar II disorder; F90.9 Attention-deficit hyperactivity disorder, unspecified type | CPT/HCPCS: 90834 ==

== ENCOUNTER → 2020-04-25 08:05 | Outpatient (BNVA) | payer MEDICAID, SELFPAY | PROVIDERS: Family Provider Internal Medicine; PCP Nurse Practitioner Family; Visit Provider Counselor Professional | DX: F43.12 Post-traumatic stress disorder, chronic (principal); F31.81 Bipolar II disorder | CPT/HCPCS: 90834 ==

== ENCOUNTER 2020-05-07 20:41 | Emergency (ER) | payer MEDICAID, SELFPAY ==
[2020-05-07 20:45] VITALS: BP 124/81; PULSE 94; RESP 16; TEMP 36.7; O2SAT 98; BMI 27.9
--- NOTE | 2020-05-07 21:11 | ED_ITS ---
HPI - General Adult General: Chief complaint: Abdominal Pain Stated complaint: N/V Time Seen by Provider: 05/07/20 21:04 History of Present Illness: HPI narrative: Patient says she has been nauseated some today threw up once. Said that she has been on Prilosec for a while. Patient said that she is threw up occasionally over the last month and has had some blood-tinged sputum at times denies any today. Said that she had pain into her chest earlier is gone now. Said she had pain down the right lower quadrant. It is gone. Epigastric burning at times the Prilosec helped relieve. Patient is feeling much better presently. Has been around people's had stomach flu recently. Pain in her chest is when she would push on her chest but that is gone now. Onset (ago): week(s) Associated symptoms: Reports nausea and vomiting; Deny chest pain, dyspnea, headache(s) or rash Review of Systems Narrative: Patient states her main problem is nausea. Const: Denies: fever(s), chills or body aches Eyes: Denies: change in vision or blurry vision ENMT: Denies: throat pain or nasal congestion Card: Denies: chest pain or dyspnea on exertion Resp: Denies: dyspnea, productive cough or non-productive cough GI: Reports: nausea and vomiting; Denies: abdominal pain Musc: Denies: extremity pain Skin/Breast: Denies: rash Neuro: Denies: headache(s) Psych: Denies: anxiety or depression [place]/Lymph: Denies: easy bruising PFSH ED PFSH: Medical History (Updated 05/07/20 @ 21:10 by AGUSTIN Navarrete) ADHD Bipolar 2 disorder Chronic migraine GERD (gastroesophageal reflux disease) Hypothyroidism No pertinent past medical history Denies: diabetes, asthma, hypertension, seizures, DVT/PE PCP: AGUSTIN Triana PTSD (post-traumatic stress disorder) Surgical History H/O foot surgery (~10/2018) left foot- flat foot [place] teeth extracted Family History Grandmother Heart disease Maternal Breast cancer maternal; age at diagnosis unknown Mother Diabetes Ovarian cancer diagnosed at age 43 Family/Other Family history of thyroid problem Paternal uncle Grandfather Stroke Paternal Hypertension Paternal Denies family history of Colon cancer Hyperlipidemia Uterine cancer Social History Smoking and tobacco status: never smoked Alcohol intake: never Physical Exam Narrative: EXAM NARRATIVE: On visit with patient patient appears nonill. She has no chest pain abdominal pain does have active bowel sounds Const: COMMON NORMALS: no acute distress, average body habitus and patient oriented x3 HENMT: COMMON NORMALS: normocephalic HEAD & SCALP: normal to inspection and normocephalic FACE & SINUS: normal facial exam Eye: COMMON NORMALS: conjunctivae normal GENERAL EYE: appearance normal, both eyes and all related structures CONJUNCTIVA: Yes conjunctivae normal Neck/C-Spine: COMMON NORMALS: no JVD Chest: COMMONS NORMALS: normal inspection of the chest Resp: COMMON NORMALS: normal respiratory effort and clear to auscultation bilaterally AUSCULTATION: clear to auscultation bilaterally Cardio: COMMON NORMALS: no JVD, regular rate and regular rhythm RATE: regular rate RHYTHM: regular rhythm GI: COMMON NORMALS: Normal to inspection, nondistended, normoactive bowel sounds present Extremity: COMMON NORMALS: normal to inspection and full ROM Neuro: COMMON NORMALS: patient oriented x3 Course Vital Signs: Vital signs: Vital Signs Temperature 98.0 F 05/07/20 20:45 Pulse Rate 94 05/07/20 20:45 Respiratory Rate 16 05/07/20 20:45 Blood Pressure 124/81 05/07/20 20:45 Pulse Oximetry 98 05/07/20 20:45 Discharge Plan Discharge Patient Disposition: Home Clinical Impression: Bipolar 2 disorder, Nausea Condition: Stable Prescriptions: New Zofran 4 mg tablet 4 mg PO TID PRN (Reason: nausea and vomiting) 3 Days Qty: 9 RF: 0 No Action levothyroxine 25 mcg capsule 25 mcg PO DAILY RF: 0 atomoxetine [Strattera] 60 mg capsule 60 mg PO DAILY RF: 0 loratadine [Claritin] 10 mg tablet 10 mg PO DAILY RF: 0 acetaminophen [Tylenol Extra Strength] 500 mg tablet 1,000 mg PO Q4H PRN (Reason: Pain) RF: 0 polyethylene glycol 3350 [Miralax] 17 gram/dose powder 17 gm PO DAILY PRN (Reason: Constipation) RF: 0 ondansetron HCl [Zofran] 4 mg tablet 4 mg PO Q8H PRN (Reason: Nausea) RF: 0 lamotrigine 100 mg tablet 50 mg PO BID RF: 0 hydroxyzine HCl 25 mg tablet 25 mg PO BID RF: 0 docusate sodium [Colace] 100 mg capsule 100 mg PO BID RF: 0 Xulane 150-35 mcg/24 hr patch weekly 1 patch TRANSDERMA Q7D Qty: 3 RF: 5 guanfacine 1 mg tablet 1 mg PO DAILY RF: 0 amitriptyline 10 mg tablet 30 mg PO .HS Qty: 90 RF: 6 lithium carbonate 150 mg capsule 300 mg PO TID RF: 0 pantoprazole 40 mg Tablet,Delayed Release (Dr/Ec) 40 mg PO DAILY RF: 0 terbinafine HCl 1 % Cream 1 applic TOPICAL BID RF: 0 hydroxyzine HCl 25 mg Tablet 75 mg PO DAILY RF: 0 lamotrigine 100 mg Tablet 200 mg PO BEDTIME RF: 0 lactulose [Constulose] 10 gram/15 mL Solution 10 g PO DAILY PRN (Reason: Constipation) RF: 0 Abilify Maintena 400 mg Suspension,Extended Rel Syring 400 mg IM PER PKG DIR RF: 0 albuterol sulfate 90 mcg/actuation HFA aerosol inhaler 2 inh INHALATION Q4H PRN (Reason: shortness of breath or wheezing, cough) Qty: 18 RF: 0 Discharge Orders: Discharge ED (Routine); Ordered 05/07/20 Ordered By: Vamsi Lora Referrals: Sandy Rutherford FNP [Primary Care Provider] - Discharge Diet: Advance as tolerated Discharge Activity: Increase activity as tolerated Patient Instructions: Gastritis (ED) Activity Restrictions/Additional Instructions: Follow-up with medical provider as directed. Take medications as prescribed. Return to the ER or your medical provider if condition worsens. Please read and understand discharge instructions. If any questions ask please. Contact [facility] tomorrow and see when your ultrasound is scheduled Coding Level of Care Code ED Data Processing Supervisor for Marcelle Tyler
[2020-05-07] MEDS: ondansetron 4 MG Tablet 8 MG PO (21:23)
== END 2020-05-07 21:24 | disposition home or self-care (01) ==
PROVIDERS: Emergency Provider Nurse Practitioner Family; PCP Nurse Practitioner Family
DX: F31.9 Bipolar disorder, unspecified (principal); R11.0 Nausea
CPT/HCPCS: 12345; 99281; 99282; Q0162

== ENCOUNTER → 2020-05-15 08:35 | Outpatient (BNVA) | payer MEDICAID, SELFPAY | PROVIDERS: Family Provider Internal Medicine; PCP Nurse Practitioner Family; Visit Provider Counselor Professional | DX: F43.12 Post-traumatic stress disorder, chronic (principal); F31.81 Bipolar II disorder | CPT/HCPCS: 90834 ==

== ENCOUNTER 2020-05-20 06:56 | Outpatient (CLI) | payer MEDICAID, SELFPAY ==
--- NOTE | 2020-05-20 07:00 | US_ITS ---
WS: [id number] ULTRASOUND ABDOMEN LIMITED CLINICAL INFORMATION: RUQ ABDOMINAL PAIN COMPARISON: August 30, 2019 FINDINGS: Liver Size: Normal. Craniocaudal length: 15.8 cm. Echogenicity: Normal. Surface nodularity: None. Mass (size and location): None. Bile ducts Intrahepatic ducts: Normal. Common bile duct diameter: 0.2 cm. Gallbladder Normal. Gallstones: None. Gallbladder sludge: None. Gallbladder wall thickening: None. Pericholecystic fluid: None. Sonographic Bryson sign: Absent. Pancreas Normal as visualized. Right kidney: Normal. Hydronephrosis: None. Size: 9.8 cm x 4.5 cm x 3.8 cm. Abdominal aorta and IVC Visualized portions are normal. Ascites: None. US/US gall bladder [id number] IMPRESSION: 1. Normal liver. 2. Normal gallbladder. 3. No hydronephrosis in right kidney.
== END 2020-05-20 06:57 | disposition home or self-care (01) ==
LOC: RAD 06:57
PROVIDERS: PCP Nurse Practitioner Family; Visit Provider Nurse Practitioner Family
DX: R10.11 Right upper quadrant pain (principal)
CPT/HCPCS: 76705

== ENCOUNTER → 2020-05-29 09:51 | Outpatient (BNVA) | payer MEDICAID, SELFPAY | PROVIDERS: Family Provider Internal Medicine; PCP Nurse Practitioner Family; Visit Provider Counselor Professional | DX: F43.12 Post-traumatic stress disorder, chronic (principal); F31.81 Bipolar II disorder; F90.9 Attention-deficit hyperactivity disorder, unspecified type | CPT/HCPCS: 90834 ==

== ENCOUNTER → 2020-06-05 08:58 | Outpatient (BNVA) | payer MEDICAID, SELFPAY | PROVIDERS: Family Provider Internal Medicine; PCP Nurse Practitioner Family; Visit Provider Counselor Professional | DX: F43.12 Post-traumatic stress disorder, chronic (principal); F31.81 Bipolar II disorder; F90.2 Attention-deficit hyperactivity disorder, combined type | CPT/HCPCS: 90834 ==

== ENCOUNTER → 2020-06-12 08:31 | Outpatient (BNVA) | payer MEDICAID, SELFPAY | PROVIDERS: Family Provider Internal Medicine; PCP Nurse Practitioner Family; Visit Provider Counselor Professional | DX: F43.12 Post-traumatic stress disorder, chronic (principal) | CPT/HCPCS: 90834 ==

== ENCOUNTER → 2020-06-19 08:07 | Outpatient (BNVA) | payer MEDICAID, SELFPAY | PROVIDERS: Family Provider Internal Medicine; PCP Nurse Practitioner Family; Visit Provider Counselor Professional | DX: F43.12 Post-traumatic stress disorder, chronic (principal) | CPT/HCPCS: 90834 ==

== ENCOUNTER → 2020-06-27 14:39 | Outpatient (BNVA) | payer MEDICAID, SELFPAY | PROVIDERS: Family Provider Internal Medicine; PCP Nurse Practitioner Family; Referring Provider Nurse Practitioner Family; Visit Provider Podiatrist Foot & Ankle Surgery | DX: S93.409A Sprain of unspecified ligament of unspecified ankle, initial encounter (principal); L60.3 Nail dystrophy; M25.371 Other instability, right ankle; X58.XXXA Exposure to other specified factors, initial encounter | CPT/HCPCS: 73610 ==

== ENCOUNTER → 2020-07-16 12:16 | Outpatient (BNVA) | payer MEDICAID, SELFPAY | PROVIDERS: Family Provider Internal Medicine; PCP Nurse Practitioner Family; Visit Provider Specialist | DX: G43.711 Chronic migraine without aura, intractable, with status migrainosus (principal) | CPT/HCPCS: 99213; 99214 ==

== ENCOUNTER → 2020-07-21 08:25 | Outpatient (BNVA) | payer MEDICAID, SELFPAY | PROVIDERS: Family Provider Internal Medicine; PCP Nurse Practitioner Family; Visit Provider Counselor Professional | DX: F43.12 Post-traumatic stress disorder, chronic (principal); F31.81 Bipolar II disorder; F90.9 Attention-deficit hyperactivity disorder, unspecified type | CPT/HCPCS: 90834 ==

== ENCOUNTER → 2020-07-29 10:12 | Outpatient (BNVA) | payer MEDICAID, SELFPAY | PROVIDERS: Family Provider Internal Medicine; PCP Nurse Practitioner Family; Visit Provider Obstetrics & Gynecology | DX: N94.6 Dysmenorrhea, unspecified (principal); Z30.9 Encounter for contraceptive management, unspecified | CPT/HCPCS: 81025 ==

== ENCOUNTER → 2020-08-07 08:46 | Outpatient (BNVA) | payer MEDICAID, SELFPAY | PROVIDERS: Family Provider Internal Medicine; PCP Nurse Practitioner Family; Visit Provider Counselor Professional | DX: G43.709 Chronic migraine without aura, not intractable, without status migrainosus (principal); F43.10 Post-traumatic stress disorder, unspecified; F31.81 Bipolar II disorder | CPT/HCPCS: 90834 ==

== ENCOUNTER → 2020-08-25 10:00 | Outpatient (BNVA) | payer MEDICAID, SELFPAY | PROVIDERS: PCP Nurse Practitioner Family; Visit Provider Obstetrics & Gynecology | DX: Z12.4 Encounter for screening for malignant neoplasm of cervix (principal) | CPT/HCPCS: 88175 ==

== ENCOUNTER → 2020-09-05 08:32 | Outpatient (BNVA) | payer MEDICAID, SELFPAY | PROVIDERS: Family Provider Internal Medicine; PCP Nurse Practitioner Family; Visit Provider Counselor Professional | DX: F43.12 Post-traumatic stress disorder, chronic (principal) | CPT/HCPCS: 90834 ==

== ENCOUNTER → 2020-10-09 07:58 | Outpatient (BNVA) | payer MEDICAID, SELFPAY | PROVIDERS: Family Provider Internal Medicine; PCP Nurse Practitioner Family; Visit Provider Counselor Professional | DX: F43.12 Post-traumatic stress disorder, chronic (principal); F90.9 Attention-deficit hyperactivity disorder, unspecified type | CPT/HCPCS: 90834 ==

== ENCOUNTER → 2020-10-15 12:46 | Outpatient (BNVA) | payer MEDICAID, SELFPAY | PROVIDERS: Family Provider Internal Medicine; PCP Nurse Practitioner Family; Visit Provider Specialist | DX: G43.711 Chronic migraine without aura, intractable, with status migrainosus (principal) | CPT/HCPCS: 96372; 99214; J1885 ==

== ENCOUNTER 2020-10-15 15:00 | Outpatient (CLI) | payer MEDICAID, SELFPAY | END 2020-10-15 15:01 | disposition home or self-care (01) | LOC: SPT 15:00 | PROVIDERS: Family Provider Internal Medicine; PCP Nurse Practitioner Family; Visit Provider Podiatrist Foot & Ankle Surgery | DX: Z46.89 Encounter for fitting and adjustment of other specified devices (principal); S93.402D Sprain of unspecified ligament of left ankle, subsequent encounter; X58.XXXD Exposure to other specified factors, subsequent encounter | CPT/HCPCS: 97760; L1902 ==

== ENCOUNTER 2020-10-28 20:51 | Emergency (ER) | payer MEDICAID, SELFPAY ==
--- NOTE | 2020-10-28 20:52 | XRR_ITS ---
PROCEDURE INFORMATION: Exam: XR Chest Exam date and time: 10/28/2020 8:52 PM Age: 25 years old Clinical indication: Sternal or substernal pain; Patient HX: Sternal cp radiating down right arm, dizzy, x 3days TECHNIQUE: Imaging protocol: XR of the chest. Views: 2 views. COMPARISON: 1. CR XR chest 1V portable [id number] 12/28/2019 7:56 PM 2. CR Chest 2 views* [id number] 02/13/2019 10:26 PM 3. CR Chest 1 [place] [id number] 11/24/2018 6:42 PM 4. CR Chest 1 [place] [id number] 07/08/2018 4:42 PM FINDINGS: The lung cook are hypoventilated similar to the old exam. There are some basilar infiltrates. There is no pleural effusion or pneumothorax. The heart size is normal. XR/XR chest 2V* [id number] IMPRESSION: The hypoventilated lungs with basilar infiltrates similar to the old exam.
--- NOTE | 2020-10-28 20:52 | ECG_ITS ---
[facility] Test Date: 2020-10-28 Pat Name: Kanika Baumann Department: Room: Gender: Female Nitro Man: : 1995 Requested By: Clare Ramsay Order Number: [id number] Nasir MD: Leisa Rasmussen M.D. Measurements Intervals [place] Rate: 98 P: 44 TX: 171 QRS: 22 QRSD: 94 T: 1 QT: 258 QTc: 330 Interpretive Statements SINUS RHYTHM LOW QRS VOLTAGE IN PRECORDIAL LEADS [QRS DEFLECTION < 1.0 mV IN CHEST LEADS] SEPTAL MYOCARDIAL INFARCTION [40+ ms Q WAVE IN V1/V2], PROBABLY OLD WARNING: DATA QUALITY MAY AFFECT INTERPRETATION Compared to ECG 11/24/2018 18:31:06 Myocardial infarct finding now present T-wave abnormality no longer present Electronically Signed On 10-29-2020 20:02:56 CDT by Leisa Rasmussen M.D. [email or web address]
[2020-10-28 21:04] VITALS: BP 132/83; PULSE 101; RESP 18; TEMP 36.6; O2SAT 98; BMI 28.3
--- NOTE | 2020-10-28 21:30 | ED_ITS ---
HPI - Chest Pain General: Chief Complaint: Chest Pain Stated Complaint: chest pain and dizzy Time Seen by Provider: 10/28/20 21:30 History of Present Illness: HPI narrative: Patient is a 25-year-old female comes to the ED with dizziness. Patient says her symptoms started about 1 week ago. She states that she started taking Depakote for the first time 1 week ago as well. She describes as feeling a little dizzy and off balance whether she is laying down to sitting up or walking. Denies any recent falls or injuries. Associated symptoms: Deny abdominal pain, dyspnea, fever(s), nausea, palpitat ions or vomiting Review of Systems Const: Denies: fever(s), chills or fatigue Eyes: Denies: change in vision or eye discomfort ENMT: Denies: throat pain, odynophagia, nasal discharge or nasal congestion Card: Denies: chest pain, palpitations, edema, swelling of feet/ankles, dyspnea on exertion or orthopnea Resp: Denies: dyspnea, productive cough or non-productive cough GI: Denies: abdominal pain, nausea, vomiting, diarrhea, constipation or hematochezia : Denies: flank pain, dysuria or hematuria Musc: Denies: neck pain, back pain or extremity swelling Skin/Breast: Denies: rash or new lesions Neuro: Reports: dizziness; Denies: headache(s), numbness in extremities or weakness in extremities PFSH ED PFSH: Medical History Bipolar 2 disorder Chronic migraine Diagnosed in 2017 and she denies having any auras. This is managed by her primary care provider. Hypothyroidism Diagnosed at the age of 14 and has been on medication managed by her primary care provider No pertinent past medical history Denies: diabetes, asthma, hypertension, seizures, DVT/PE PCP: AGUSTIN Triana PTSD (post-traumatic stress disorder) PTSD along with multiple other psychiatric diagnoses of ADHD, bipolar disorder--this is managed by Dr. Flores Surgical History H/O foot surgery (~10/2018) left foot- flat foot [place] teeth extracted Family History Grandmother Heart disease Maternal Breast cancer maternal; age at diagnosis unknown Mother Diabetes Ovarian cancer diagnosed at age 43 Family/Other Family history of thyroid problem Paternal uncle Grandfather Stroke Paternal Hypertension Paternal Denies family history of Colon cancer Hyperlipidemia Uterine cancer Social History Smoking and tobacco status: never smoked Alcohol intake: never History of recent travel: No Physical Exam Const: COMMON NORMALS: no acute distress, patient oriented x3 and alert GENERAL APPEARANCE: cooperative and comfortable HENMT: COMMON NORMALS: normocephalic HEAD & SCALP: normocephalic MOUTH: Normal oral and palatal mucosa present THROAT: posterior oropharynx normal and uvula midline Eye: COMMON NORMALS: Equal, round and reactive pupils present, EOMs intact bilaterally and conjunctivae normal CONJUNCTIVA: Yes conjunctivae normal PUPIL: Yes Equal, round and reactive pupils present Neck/C-Spine: COMMON NORMALS: supple GENERAL: Yes normal visual inspection Resp: COMMON NORMALS: normal respiratory effort, No retractions, No use of accessory muscles and clear to auscultation bilaterally AUSCULTATION: clear to auscultation bilaterally Cardio: COMMON NORMALS: regular rate, regular rhythm, S1 normal heart sound present, S2 normal heart sound present, No gallops present (Cardio), No clicks present (Cardio), No murmurs present (Cardio) and Peripheral pulses 2+ throughout RATE: regular rate RHYTHM: regular rhythm HEART SOUNDS: S1 normal heart sound present and S2 normal heart sound present PERIPHERAL PULSES: Peripheral pulses 2+ throughout GI: COMMON NORMALS: Normal to inspection, nondistended, normoactive bowel sounds present, Soft to palpation, non-tender and no masses PALPATION: Yes Soft to palpation : COMMON NORMALS: Yes no CVA tenderness BLADDER/KIDNEY EXAM: Yes no CVA tenderness Back/Pelvis: COMMON NORMALS: no CVA tenderness Extremity: COMMON NORMALS: normal to inspection Neuro: COMMON NORMALS: patient oriented x3 and moves all extremities SENSORIUM/ORIENTATION: Yes alert Skin: GENERAL SKIN EXAM: dry skin Course ED course: Patient was given a dose of meclizine while here in the ED and she says her dizziness improved. Vital Signs: Vital signs: Vital Signs Temperature 97.8 F 10/28/20 21:04 Pulse Rate 98 10/28/20 23:06 Respiratory Rate 16 10/28/20 23:06 Blood Pressure 127/82 10/28/20 23:06 Pulse Oximetry 100 10/28/20 23:06 MDM - Chest Pain MDM Narrative: Medical decision making narrative: Patient is a 25-year-old female comes to the ED with dizziness. Patient says she just started Depakote 1 week ago and since starting medication she has had dizziness. Exam is benign and patient's vitals are stable. She appears nontoxic and in no acute distress or pain. CBC, UA and CMP were unremarkable. hCG negative. Chest x-ray showed no acute findings. EKG showed normal sinus rhythm with no ST segment elevation or depression seen. Patient was given a dose of meclizine while here in the ED and her symptoms improved. Dizziness is potential side effect to Depakote. Patient was diagnosed with medication side effect and discharged home. I told patient to contact the doctor prescribing Depakote tomorrow morning to discuss getting off medication and switching to another med. Patient discharged home with prescription for meclizine as well to use for any dizziness. Return to ED precautions given. Patient understood agree with plan. Lab Data: Attestation: I reviewed the patient's lab results. Labs: Lab Results 10/28/20 10/28/20 10/28/20 Range/Units 21:56 22:12 22:12 WBC 8.6 (4.0-10.0) 10^3/ uL RBC 4.49 (4.1-5.3) 10^6/u L Hgb 13.2 (11.5-15.3) g/dL Hct 42.0 (37.0-47.0) % MCV 93.5 (81-99) fL MCH 29.4 (28.0-34.0) pg MCHC 31.4 (30.0-36.0) g/dL RDW 12.6 (12.1-15.1) % Plt Count 298 (130-400) 10^3/c mm MPV 9.3 (7.4-10.4) fL Neut % (Auto) 46.0 % Lymph % (Auto) 34.2 % Calhoun % (Auto) 11.0 % Eos % (Auto) 7.7 % Baso % (Auto) 0.6 % Neut # (Auto) 3.97 (1.8-7.7) 10^3/u L Lymph # (Auto) 3.0 (0.8-4.8) 10^3/u L Calhoun # (Auto) 1.0 H (0.2-0.9) 10^3/u L Eos # (Auto) 0.7 (0.0-0.8) 10^3/u L Baso # (Auto) 0.1 (0.0-0.1) 10^3/u L Nucleated RBC % (a uto) 0 % Nucleated RBCs # 0.0 /100WBC Sodium 140 (136-145) mmol/L Potassium 3.7 (3.5-5.1) mmol/L Chloride 108 H (98-107) mmol/L Carbon Dioxide 16 L (22-29) mmol/L Anion Gap 19.7 H (5-19) BUN 8 (6-20) mg/dL Creatinine 0.7 (0.5-0.9) mg/dL GFR Calculation 102.8 (90-130) mL/min Glucose 103 (65-115) mg/dL Calculated Osmolal ity 289 (285-295) mOsm/k g Calcium 9.0 (8.5-10.5) mg/dL Total Bilirubin 0.2 (0.15-1.2) mg/dL AST 15 (0-32) U/L ALT 14 (0-33) U/L Alkaline Phosphata se 87 (35-105) IU/L Total Protein 6.3 L (6.6-8.7) g/dL Albumin 4.2 (3.5-5.2) g/dL Globulin 2.1 (1.3-4.6) g/dL HCG, Qual (Negative) Urine Color Yellow (Yellow) Urine Appearance Clear (CLEAR) Urine pH 6.5 (5-7) Ur Specific Gravit y 1.020 (1.005-1.030) Urine Protein Neg (Negative) Urine Glucose (UA) Norm (Normal) Urine Ketones 1+ H (Negative) Urine Blood Neg (Negative) Urine Nitrate Negative (Negative) Urine Bilirubin Neg (Negative) Urine Urobilinogen 1 H (Negative) mg/dL Ur Leukocyte Nitza ase Negative (Negative) Urine RBC 0-4 H (0-2) /hpf Urine WBC 0-4 H (0-5) /hpf Ur Squamous Epith Cells 0-4 H (0-5) /hpf Amorphous Sediment Not Reportable Urine Bacteria 2+ H (NONE) /hpf 10/28/20 Range/Units 22:12 WBC (4.0-10.0) 10^3/ uL RBC (4.1-5.3) 10^6/u L Hgb (11.5-15.3) g/dL Hct (37.0-47.0) % MCV (81-99) fL MCH (28.0-34.0) pg MCHC (30.0-36.0) g/dL RDW (12.1-15.1) % Plt Count (130-400) 10^3/c mm MPV (7.4-10.4) fL Neut % (Auto) % Lymph % (Auto) % Calhoun % (Auto) % Eos % (Auto) % Baso % (Auto) % Neut # (Auto) (1.8-7.7) 10^3/u L Lymph # (Auto) (0.8-4.8) 10^3/u L Calhoun # (Auto) (0.2-0.9) 10^3/u L Eos # (Auto) (0.0-0.8) 10^3/u L Baso # (Auto) (0.0-0.1) 10^3/u L Nucleated RBC % (a uto) % Nucleated RBCs # /100WBC Sodium (136-145) mmol/L Potassium (3.5-5.1) mmol/L Chloride (98-107) mmol/L Carbon Dioxide (22-29) mmol/L Anion Gap (5-19) BUN (6-20) mg/dL Creatinine (0.5-0.9) mg/dL GFR Calculation (90-130) mL/min Glucose (65-115) mg/dL Calculated Osmolal ity (285-295) mOsm/k g Calcium (8.5-10.5) mg/dL Total Bilirubin (0.15-1.2) mg/dL AST (0-32) U/L ALT (0-33) U/L Alkaline Phosphata se (35-105) IU/L Total Protein (6.6-8.7) g/dL Albumin (3.5-5.2) g/dL Globulin (1.3-4.6) g/dL HCG, Qual Negative (Negative) Urine Color (Yellow) Urine Appearance (CLEAR) Urine pH (5-7) Ur Specific Gravit y (1.005-1.030) Urine Protein (Negative) Urine Glucose (UA) (Normal) Urine Ketones (Negative) Urine Blood (Negative) Urine Nitrate (Negative) Urine Bilirubin (Negative) Urine Urobilinogen (Negative) mg/dL Ur Leukocyte Nitza ase (Negative) Urine RBC (0-2) /hpf Urine WBC (0-5) /hpf Ur Squamous Epith Cells (0-5) /hpf Amorphous Sediment Urine Bacteria (NONE) /hpf Imaging Data^: CXR: Attestation: I personally reviewed and interpreted this imaging study as follows: Radiologist's impression: [facility] Young[address] [address] XRay Report Signed Patient: Kanika Baumann Unit #: [id number] : 1995 Age/Sex: 25 / F ADM Date: 10/28/20 Loc: ER Room/Bed: Attending Dr: Ordering Provider/Ordering MD: Clare Ramsay MD Date of Service: 10/28/20 Procedure(s): XR chest 2V* [id number] Accession Number(s): [id number] Report Number: [id number] PROCEDURE INFORMATION: Exam: XR Chest Exam date and time: 10/28/2020 8:52 PM Age: 25 years old Clinical indication: Sternal or substernal pain; Patient HX: Sternal cp radiating down right arm, dizzy, x 3days TECHNIQUE: Imaging protocol: XR of the chest. Views: 2 views. COMPARISON: 1. CR XR chest 1V portable [id number] 12/28/2019 7:56 PM 2. CR Chest 2 views* [id number] 02/13/2019 10:26 PM 3. CR Chest 1 [place] [id number] 11/24/2018 6:42 PM 4. CR Chest 1 [place] [id number] 07/08/2018 4:42 PM FINDINGS: The lung cook are hypoventilated similar to the old exam. There are some basilar infiltrates. There is no pleural effusion or pneumothorax. The heart size is normal. XR/XR chest 2V* [id number] IMPRESSION: The hypoventilated lungs with basilar infiltrates similar to the old exam. Dictated By: Berhane Johnson MD Signed By: Berhane Johnson MD Signed Date/Time: 10/28/202215 DD/ 14 EKG Data^: EKG 1: Attestation: I personally reviewed and interpreted this EKG as follows: EKG interpretation date: 10/28/20 Interpretation: Normal sinus rhythm, 97 bpm, no ST segment elevation or depre ssion seen. Discharge Plan Discharge Patient Disposition: Home Clinical Impression: Medication side effect Condition: Stable Prescriptions: New meclizine 25 mg tablet 25 mg PO DAILY PRN (Reason: dizziness) Qty: 15 RF: 0 No Action levothyroxine 25 mcg capsule 25 mcg PO DAILY RF: 0 atomoxetine [Strattera] 60 mg capsule 60 mg PO DAILY RF: 0 acetaminophen [Tylenol Extra Strength] 500 mg tablet 1,000 mg PO Q4H PRN (Reason: Pain) RF: 0 polyethylene glycol 3350 [Miralax] 17 gram/dose powder 17 gm PO DAILY PRN (Reason: Constipation) RF: 0 ondansetron HCl [Zofran] 4 mg tablet 4 mg PO Q8H PRN (Reason: Nausea) RF: 0 lamotrigine 100 mg tablet 50 mg PO BID RF: 0 loratadine [Claritin] 10 mg tablet 10 mg PO DAILY PRNRF: 0 melatonin 10 mg capsule 10 mg PO DAILY RF: 0 Nexplanon 68 mg implant 1 implant subdermal .every three years Qty: 1 RF: 0 docusate sodium [Colace] 100 mg capsule 100 mg PO BID PRNRF: 0 hydroxyzine HCl 25 mg tablet 25 mg PO TID RF: 0 divalproex [Depakote ER] 500 mg tablet extended release 24 hr 500 mg PO DAILY Qty: 30 RF: 2 guanfacine 1 mg tablet 1 mg PO DAILY RF: 0 lithium carbonate 150 mg capsule 300 mg PO TID RF: 0 fluorouracil [Efudex] 5 % cream 1 applic topical DAILY Qty: 40 RF: 0 meloxicam 7.5 mg tablet 7.5 mg PO DAILY RF: 0 (DME) ASO See Rx Instructions .Route .MEDSUPPLY Qty: 1 RF: 0 amitriptyline 10 mg tablet 30 mg PO .HS Qty: 90 RF: 4 pantoprazole 40 mg Tablet,Delayed Release (Dr/Ec) 40 mg PO DAILY RF: 0 lamotrigine 100 mg Tablet 200 mg PO BEDTIME RF: 0 Abilify Maintena 400 mg Suspension,Extended Rel Syring 400 mg IM PER PKG DIR RF: 0 albuterol sulfate 90 mcg/actuation HFA aerosol inhaler 2 inh INHALATION Q4H PRN (Reason: shortness of breath or wheezing, cough) Qty: 18 RF: 0 Discharge Orders: Discharge ED (Routine); Ordered 10/28/20 Ordered By: Anjum Higginbotham Referrals: Sandy Rutherford FNP [Primary Care Provider] - Discharge Diet: Regular Discharge Activity: Increase activity as tolerated Patient Instructions: Dizziness (ED) Activity Restrictions/Additional Instructions: Follow-up with medical provider as directed. Take medications as prescribed. Return to the ER or your medical provider if condition worsens. Please read and understand discharge instructions. Thank you for choosing [facility] for your healthcare needs today. Please realize this is an emergency room and that we are providing you with a medical screening exam and this may not be complete and all inclusive of all the testing and or work up that you may need to determine your ailment or severity of your illness. It is very important that you follow up as instructed or that you return to the Emergency Department should you have concerns or if your condition changes or worsens in any way. Coding Level of Care Code ED Digital Marketing Apprentice for Marcelle Tyler Exam Comprehensive
[2020-10-28 21:51] VITALS: BP 127/88; PULSE 92; RESP 18; O2SAT 99
[2020-10-28] MEDS: meclizine 25 mg tablet 50 MG PO (22:02)
[2020-10-28 22:30] LABS: Basophils # 0.1 10^3/uL (0.0-0.1); Basophils % 0.6 %; Eosinophils # 0.7 10^3/uL (0.0-0.8); Eosinophils % 7.7 %; HCG, Serum Qual Negative (Negative); Hemoglobin 13.2 g/dL (11.5-15.3); Lymphocytes % 34.2 %; Mean Corpuscular HGB Conc 31.4 g/dL (30.0-36.0); Mean Corpuscular Hemoglobin 29.4 pg (28.0-34.0); Mean Corpuscular Volume 93.5 fL (81-99); Mean Platelet Volume 9.3 fL (7.4-10.4); Neutrophils # 3.97 10^3/uL (1.8-7.7); Nucleated Red Blood Cells % 0 %; Platelet Count 298 10^3/cmm (130-400); Red Blood Count 4.49 10^6/uL (4.1-5.3); Red Cell Distribution Width 12.6 % (12.1-15.1); White Blood Count 8.6 10^3/uL (4.0-10.0)
[2020-10-28 22:33] LABS: Alanine Aminotransferase 14 U/L (0-33); Albumin Level 4.2 g/dL (3.5-5.2); Alkaline Phosphatase 87 IU/L (35-105); Anion Gap 19.7 (5-19); Aspartate Amino Transferase 15 U/L (0-32); Blood Urea Nitrogen 8 mg/dL (6-20); Carbon Dioxide 16 mmol/L (22-29); Chloride 108 mmol/L (98-107); Globulin 2.1 g/dL (1.3-4.6); Glomerular Filtration Rate 102.8 mL/min (90-130); Glucose 103 mg/dL (65-115); Osmolality Calculated 289 mOsm/kg (285-295); Potassium 3.7 mmol/L (3.5-5.1); Sodium 140 mmol/L (136-145); Total Bilirubin 0.2 mg/dL (0.15-1.2); Total Protein 6.3 g/dL (6.6-8.7)
[2020-10-28 22:34] LABS: Add Urine Culture? No; Bacteria Urine 2+ /hpf; Bilirubin Urine Neg (Negative); Blood Urine Neg (Negative); Glucose Urine UA Norm (Normal); Ketones Urine 1+ (Negative); Leukocyte Esterase Urine Negative (Negative); Nitrate Urine Negative (Negative); Protein Urine Neg (Negative); RBC Urine 0-4 /hpf (0-2); Squamous Epithelial Cell Urine 0-4 /hpf (0-5); Urine Appearance Clear (CLEAR); Urine Color Yellow (Yellow); Urobilinogen Urine 1 mg/dL (Negative); WBC Urine 0-4 /hpf (0-5); pH Urine 6.5 (5-7)
[2020-10-28 23:06] VITALS: BP 127/82; PULSE 98; RESP 16; O2SAT 100
== END 2020-10-28 23:07 | disposition home or self-care (01) ==
PROVIDERS: Emergency Provider Physician Assistant; PCP Nurse Practitioner Family
DX: T88.7XXA Unspecified adverse effect of drug or medicament, initial encounter (principal); T50.905A Adverse effect of unspecified drugs, medicaments and biological substances, initial encounter
CPT/HCPCS: 71046; 80053; 81001; 84703; 85025; 93005; 99283; J8597

== ENCOUNTER 2020-12-29 21:00 | Emergency (ER) | payer MEDICAID, SELFPAY ==
[2020-12-29 21:59] VITALS: BP 129/85; PULSE 83; RESP 18; TEMP 36.6; O2SAT 96; BMI 28.6
--- NOTE | 2020-12-29 22:16 | CTR_ITS ---
PROCEDURE INFORMATION: Exam: CT Cervical Spine Without Contrast Exam date and time: 12/29/2020 10:16 PM Age: 25 years old Clinical indication: Injury or trauma; Fall; Blunt trauma TECHNIQUE: Imaging protocol: Computed tomography images of the cervical spine without contrast. Radiation optimization: All CT scans at this facility use at least one of these dose optimization techniques: automated exposure control; mA and/or kV adjustment per patient size (includes targeted exams where dose is matched to clinical indication); or iterative reconstruction. COMPARISON: CT Cervical Spine wo* [id number] 03/12/2017 11:09 PM RADIATION DOSE METRICS: Total DLP (mGy-cm): 490.17 FINDINGS: Vertebrae: No acute fracture. Normal alignment. C2-C3: No significant disc protrusion. No severe spinal canal stenosis. No significant neural foraminal narrowing. C3-C4: No significant disc protrusion. No severe spinal canal stenosis. No significant neural foraminal narrowing. C4-C5: No significant disc protrusion. No severe spinal canal stenosis. No significant neural foraminal narrowing. C5-C6: No significant disc protrusion. No severe spinal canal stenosis. No significant neural foraminal narrowing. C6-C7: No significant disc protrusion. No severe spinal canal stenosis. No significant neural foraminal narrowing. C7-T1: No significant disc protrusion. No severe spinal canal stenosis. No significant neural foraminal narrowing. Soft tissues: Unremarkable. Lungs: Lung apices are normal. CT/CT cervical spin wo con* [id number] IMPRESSION: Negative for fracture or dislocation. Radiation Dose CTDIVOL = (mGy): DLP = 490.17 (mGy-cm)
--- NOTE | 2020-12-29 22:16 | CTR_ITS ---
PROCEDURE INFORMATION: Exam: CT Head Without Contrast Exam date and time: 12/29/2020 10:16 PM Age: 25 years old Clinical indication: Injury or trauma; Blunt trauma (contusions or hematomas); Injury details: Fall hitting head on right side. Pain in head and neck TECHNIQUE: Imaging protocol: Computed tomography of the head without contrast. Radiation optimization: All CT scans at this facility use at least one of these dose optimization techniques: automated exposure control; mA and/or kV adjustment per patient size (includes targeted exams where dose is matched to clinical indication); or iterative reconstruction. COMPARISON: CT head wo con* [id number] 08/16/2018 8:49 PM RADIATION DOSE METRICS: Total DLP (mGy-cm): 781.05 FINDINGS: Brain: Normal. No hemorrhage. Unremarkable white matter. No mass effect. Cerebral ventricles: No ventriculomegaly. Paranasal sinuses: Visualized sinuses are unremarkable. No fluid levels. Mastoid air cells: Visualized mastoid air cells are well aerated. Bones/joints: Unremarkable. No acute fracture. Soft tissues: Unremarkable. CT/CT head wo con* [id number] IMPRESSION: Negative for intracranial hemorrhage or mass effect. Radiation Dose CTDIVOL = (mGy): DLP = 781.05 (mGy-cm)
--- NOTE | 2020-12-29 23:16 | W.ED.FALL ---
HPI - Fall General: Chief Complaint: Fall Stated Complaint: fall-head injury, right hand and right leg pain Time Seen by Provider: 12/29/20 23:15 Source: patient and other (caregiver) Mode of arrival: ambulatory Limitations: no limitations History of Present Illness: HPI Narrative: Patient is a 25-year-old female who presents to the ED today from [facility] along with her caregiver for complaints of a slip and fall. Patient tells me she accidentally slipped over several items on the floor and struck the posterior aspect of her scalp on the frame of the door. Patient states she became lightheaded and dizzy but this has subsided. She complains of neck pain. MD complaint: fall Onset (ago): hour(s) Fall from: standing Fall witnessed: yes, by bystander Place fall occurred: home Loss of consciousness: None Prolonged down time: no Symptoms prior to fall: none Context: tripped/slipped Location of injury: head and neck Associated symptoms-after fall: Reports headache(s) and neck pain; Denies abdominal pain, chest pain, confusion or difficulty walking Review of Systems Const: Denies: fever(s), chills, body aches or fatigue Eyes: Reports: blurry vision (subsided now); Denies: photophobia, floaters or seeing flashes ENMT: Denies: throat pain, odynophagia, ear or mastoid pain, ear discharge, nasal discharge, nasal congestion or epistaxis Card: Denies: chest pain, palpitations, syncope or pre-syncope Resp: Denies: dyspnea GI: Denies: abdominal pain, nausea or vomiting Musc: Reports: neck pain; Denies: back pain, extremity pain, joint pain or joint swelling Skin/Breast: Denies: rash Neuro: Reports: headache(s); Denies: numbness in extremities, weakness in extremities, sensory changes, difficulty walking, confusion, Slurred speech present or difficulty communicating thoughts PFS ED PFSH: Medical History Bipolar 2 disorder Chronic migraine Diagnosed in 2017 and she denies having any auras. This is managed by her primary care provider. Hypothyroidism Diagnosed at the age of 14 and has been on medication managed by her primary care provider No pertinent past medical history Denies: diabetes, asthma, hypertension, seizures, DVT/PE PCP: AGUSTIN Triana PTSD (post-traumatic stress disorder) PTSD along with multiple other psychiatric diagnoses of ADHD, bipolar disorder--this is managed by Dr. Flores Surgical History H/O foot surgery (~10/2018) left foot- flat foot [place] teeth extracted Family History Grandmother Heart disease Maternal Breast cancer maternal; age at diagnosis unknown Mother Diabetes Ovarian cancer diagnosed at age 43 Family/Other Family history of thyroid problem Paternal uncle Grandfather Stroke Paternal Hypertension Paternal Denies family history of Colon cancer Hyperlipidemia Uterine cancer Social History Smoking and tobacco status: never smoked Alcohol intake: never History of recent travel: No Physical Exam Const: COMMON NORMALS: no acute distress, average body habitus, patient oriented x3, no limitations, healthy appearing, alert and well nourished GENERAL APPEARANCE: cooperative ORIENTATION/CONSCIOUSNESS: Yes awake, Yes oriented to person, Yes oriented to place and Yes oriented to time HENMT: COMMON NORMALS: normocephalic, atraumatic, hearing grossly normal bilaterally, EAC's normal and TM's normal bilaterally HEAD & SCALP: normal to inspection, normocephalic and atraumatic FACE & SINUS: normal facial exam EXTERNAL AUDITORY CANAL: EAC's normal TYMPANIC MEMBRANE: TM's normal bilaterally Eye: GENERAL EYE: appearance normal, both eyes and all related structures Neck/C-Spine: COMMON NORMALS: full ROM CERVICAL SPINE: Yes pain with cervical ROM, No Cervical spine tenderness, No step off deformity and Yes Paracervical muscle tenderness right Neuro: DERECK COMA SCALE: document GCS findings Dereck coma scale eye opening: Spontaneous [place] coma scale verbal response: Orientated Dereck coma scale motor response: Obey commands Dereck coma scale total score: 15 COMMON NORMALS: patient oriented x3, CN's II-XII intact bilaterally, moves all extremities, no focal motor deficits, no sensory deficits noted and gait normal SENSORIUM/ORIENTATION: Yes alert, Yes oriented to person, Yes oriented to place and Yes oriented to time Skin: COMMON NORMALS: no rashes or lesions noted GENERAL SKIN EXAM: no rashes or lesions noted TRAUMA: no lacerations or abrasions Course Vital Signs: Vital signs: Vital Signs Temperature 98 F 12/29/20 21:59 Pulse Rate 83 12/29/20 21:59 Respiratory Rate 18 12/29/20 21:59 Blood Pressure 129/85 12/29/20 21:59 Pulse Oximetry 96 12/29/20 21:59 MDM - Fall MDM Narrative: Medical decision making narrative: Patient may use OTC Tylenol/Ibuprofen for discomfort as well as ice and heat to her neck. Recommend follow-up with PCP in 3 to 5 days if symptoms do not seem to be improving. Return to ED precautions given. Imaging Data^: CT Head: Radiologist's impression: [employer] [place] [address] CT Scan Report Signed Patient: Kanika Baumann Unit #: [id number] : 1995 Age/Sex: 25 / F ADM Date: 12/29/20 Loc: ER Room/Bed: Attending Dr: Ordering Provider/Ordering MD: Marilyn Roberson Date of Service: 12/29/20 Procedure(s): CT head wo con* [id number] Accession Number(s): [id number] Report Number: [id number] PROCEDURE INFORMATION: Exam: CT Head Without Contrast Exam date and time: 12/29/2020 10:16 PM Age: 25 years old Clinical indication: Injury or trauma; Blunt trauma (contusions or hematomas); Injury details: Fall hitting head on right side. Pain in head and neck TECHNIQUE: Imaging protocol: Computed tomography of the head without contrast. Radiation optimization: All CT scans at this facility use at least one of these dose optimization techniques: automated exposure control; mA and/or kV adjustment per patient size (includes targeted exams where dose is matched to clinical indication); or iterative reconstruction. COMPARISON: CT head wo con* [id number] 08/16/2018 8:49 PM RADIATION DOSE METRICS: Total DLP (mGy-cm): 781.05 FINDINGS: Brain: Normal. No hemorrhage. Unremarkable white matter. No mass effect. Cerebral ventricles: No ventriculomegaly. Paranasal sinuses: Visualized sinuses are unremarkable. No fluid levels. Mastoid air cells: Visualized mastoid air cells are well aerated. Bones/joints: Unremarkable. No acute fracture. Soft tissues: Unremarkable. CT/CT head wo con* [id number] IMPRESSION: Negative for intracranial hemorrhage or mass effect. Radiation Dose CTDIVOL = (mGy): DLP = 781.05 (mGy-cm) Dictated By: José Antonio Landaverde MD Signed By: José Antonio Landaverde MD Signed Date/Time: 12/29/202305 DD/ 03 CT cervical: Radiologist's impression: [address] [address] [address] Scan Report Signed Patient: Kanika Baumann Unit #: [id number] : 1995 Age/Sex: 25 / F ADM Date: 12/29/20 Loc: ER Room/Bed: Attending Dr: Ordering Provider/Ordering MD: Marilyn Roberson Date of Service: 12/29/20 Procedure(s): CT cervical spin wo con* [id number] Accession Number(s): [id number] Report Number: [id number] PROCEDURE INFORMATION: Exam: CT Cervical Spine Without Contrast Exam date and time: 12/29/2020 10:16 PM Age: 25 years old Clinical indication: Injury or trauma; Fall; Blunt trauma TECHNIQUE: Imaging protocol: Computed tomography images of the cervical spine without contrast. Radiation optimization: All CT scans at this facility use at least one of these dose optimization techniques: automated exposure control; mA and/or kV adjustment per patient size (includes targeted exams where dose is matched to clinical indication); or iterative reconstruction. COMPARISON: CT Cervical Spine wo* [id number] 03/12/2017 11:09 PM RADIATION DOSE METRICS: Total DLP (mGy-cm): 490.17 FINDINGS: Vertebrae: No acute fracture. Normal alignment. C2-C3: No significant disc protrusion. No severe spinal canal stenosis. No significant neural foraminal narrowing. C3-C4: No significant disc protrusion. No severe spinal canal stenosis. No significant neural foraminal narrowing. C4-C5: No significant disc protrusion. No severe spinal canal stenosis. No significant neural foraminal narrowing. C5-C6: No significant disc protrusion. No severe spinal canal stenosis. No significant neural foraminal narrowing. C6-C7: No significant disc protrusion. No severe spinal canal stenosis. No significant neural foraminal narrowing. C7-T1: No significant disc protrusion. No severe spinal canal stenosis. No significant neural foraminal narrowing. Soft tissues: Unremarkable. Lungs: Lung apices are normal. CT/CT cervical spin wo con* [id number] IMPRESSION: Negative for fracture or dislocation. Radiation Dose CTDIVOL = (mGy): DLP = 490.17 (mGy-cm) Dictated By: José Antonio Landaverde MD Signed By: José Antonio Landaverde MD Signed Date/Time: 12/29/202306 DD/ 04 Discharge Plan Discharge Patient Disposition: Home Clinical Impression: Fall from slipping Qualifiers: Encounter type: initial encounter Qualified Code(s): W01.0XXA - Fall on same level from slipping, tripping and stumbling without subsequent striking against object, initial encounter Contusion of scalp Qualifiers: Encounter type: initial encounter Qualified Code(s): S00.03XA - Contusion of scalp, initial encounter Neck strain Qualifiers: Encounter type: initial encounter Qualified Code(s): S16.1XXA - Strain of muscle, fascia and tendon at neck level, initial encounter Condition: Stable Prescriptions: No Action levothyroxine 25 mcg capsule 25 mcg PO DAILY RF: 0 atomoxetine [Strattera] 60 mg capsule 60 mg PO DAILY RF: 0 acetaminophen [Tylenol Extra Strength] 500 mg tablet 1,000 mg PO Q4H PRN (Reason: Pain) RF: 0 polyethylene glycol 3350 [Miralax] 17 gram/dose powder 17 gm PO DAILY PRN (Reason: Constipation) RF: 0 ondansetron HCl [Zofran] 4 mg tablet 4 mg PO Q8H PRN (Reason: Nausea) RF: 0 lamotrigine 100 mg tablet 50 mg PO BID RF: 0 loratadine [Claritin] 10 mg tablet 10 mg PO DAILY PRNRF: 0 melatonin 10 mg capsule 10 mg PO DAILY RF: 0 Nexplanon 68 mg implant 1 implant subdermal .every three years Qty: 1 RF: 0 docusate sodium [Colace] 100 mg capsule 100 mg PO BID PRNRF: 0 hydroxyzine HCl 25 mg tablet 25 mg PO TID RF: 0 guanfacine 1 mg tablet 1 mg PO DAILY RF: 0 lithium carbonate 150 mg capsule 300 mg PO TID RF: 0 fluorouracil [Efudex] 5 % cream 1 applic topical DAILY Qty: 40 RF: 0 meloxicam 7.5 mg tablet 7.5 mg PO DAILY RF: 0 (DME) ASO See Rx Instructions .Route .MEDSUPPLY Qty: 1 RF: 0 amitriptyline 10 mg tablet 30 mg PO .HS Qty: 90 RF: 4 divalproex [Depakote ER] 500 mg tablet extended release 24 hr 250 mg PO DAILY Qty: 30 RF: 2 pantoprazole 40 mg Tablet,Delayed Release (Dr/Ec) 40 mg PO DAILY RF: 0 lamotrigine 100 mg Tablet 200 mg PO BEDTIME RF: 0 Abilify Maintena 400 mg Suspension,Extended Rel Syring 400 mg IM PER PKG DIR RF: 0 albuterol sulfate 90 mcg/actuation HFA aerosol inhaler 2 inh INHALATION Q4H PRN (Reason: shortness of breath or wheezing, cough) Qty: 18 RF: 0 meclizine 25 mg tablet 25 mg PO DAILY PRN (Reason: dizziness) Qty: 15 RF: 0 Discharge Orders: Discharge ED (Routine); Ordered 12/29/20 Ordered By: Marilyn Roberson Referrals: Sandy Rutherford FNP [Primary Care Provider] - Coding Level of Care Code ED Mail Examiner for Marcelle Tyler
[2020-12-29 23:24] VITALS: BP 113/78; PULSE 91; RESP 18; O2SAT 98
== END 2020-12-29 23:25 | disposition home or self-care (01) ==
PROVIDERS: Emergency Provider Physician Assistant; PCP Nurse Practitioner Family
DX: S00.03XA Contusion of scalp, initial encounter (principal); S16.1XXA Strain of muscle, fascia and tendon at neck level, initial encounter; E03.9 Hypothyroidism, unspecified; W01.198A Fall on same level from slipping, tripping and stumbling with subsequent striking against other object, initial encounter
CPT/HCPCS: 70450; 72125; 99282

== ENCOUNTER → 2021-01-02 11:51 | Outpatient (BNVA) | payer MEDICAID, SELFPAY | PROVIDERS: PCP Nurse Practitioner Family; Visit Provider Counselor Mental Health | DX: F43.12 Post-traumatic stress disorder, chronic (principal); F31.81 Bipolar II disorder; F90.0 Attention-deficit hyperactivity disorder, predominantly inattentive type | CPT/HCPCS: 90791 ==

== ENCOUNTER → 2021-01-28 09:39 | Outpatient (BNVA) | payer MEDICAID, SELFPAY | PROVIDERS: PCP Nurse Practitioner Family; Visit Provider Podiatrist Foot & Ankle Surgery | DX: M79.672 Pain in left foot (principal); M25.372 Other instability, left ankle; M25.371 Other instability, right ankle | CPT/HCPCS: 73610 ==

== ENCOUNTER → 2021-02-10 15:39 | Outpatient (BNVA) | payer MEDICAID, SELFPAY | PROVIDERS: PCP Nurse Practitioner Family; Visit Provider Specialist | DX: G43.711 Chronic migraine without aura, intractable, with status migrainosus (principal); F17.200 Nicotine dependence, unspecified, uncomplicated | CPT/HCPCS: 99213; 99214 ==

== ENCOUNTER 2021-02-15 21:24 | Emergency (ER) | payer MEDICAID, SELFPAY ==
[2021-02-15 21:34] VITALS: BP 119/82; PULSE 98; RESP 16; TEMP 36.7; O2SAT 100
--- NOTE | 2021-02-15 21:55 | XRR_ITS ---
PROCEDURE INFORMATION: Exam: XR Abdomen Exam date and time: 02/15/2021 9:55 PM Age: 25 years old Clinical indication: Constipation TECHNIQUE: Imaging protocol: XR of the abdomen. Views: Frontal supine view of the abdomen. 1 View. COMPARISON: CR XR abdomen min 2V [id number] 08/27/2020 9:37 AM FINDINGS: Lungs: Mild nonspecific opacity in the left lower lung, similar to the findings on 02/06/2021. Gastrointestinal tract: Normal. No bowel dilation. Bones/joints: Unremarkable. XR/XR KUB 15021 IMPRESSION: 1. No acute intra-abdominal findings. 2. Nonspecific left lower lung opacity, similar to 02/06/2021. Radiation Dose CTDIVOL = (mGy): DLP = (mGy-cm)
[2021-02-15 22:26] VITALS: BP 117/88; PULSE 82; RESP 18; TEMP 36.6; O2SAT 98
--- NOTE | 2021-02-15 22:32 | W.ED.ABDPA2 ---
HPI - Abdominal Pain General: Chief Complaint: Abdominal Pain Stated Complaint: trouble having BM Time Seen by Provider: 02/15/21 22:01 History of Present Illness: HPI narrative: Patient is a 25-year-old female comes to the ED with constipation. Patient says she had a liquidy bowel movement around 3:30 PM today. She saw her primary care doctor 2 days ago and they told her that she was constipated. She has been taking MiraLAX and lactulose for the past couple days to help with her symptoms. Denies any fever, chills, nausea/vomiting. Associated Symptoms: Reports constipation; Denies chills, diarrhea, dysuria, fever(s), hematochezia, hematuria, nausea and vomiting Review of Systems Const: Denies: fever(s), chills or fatigue Eyes: Denies: change in vision or eye discomfort ENMT: Denies: throat pain, odynophagia, nasal discharge or nasal congestion Card: Denies: chest pain, palpitations, edema, swelling of feet/ankles, dyspnea on exertion or orthopnea Resp: Denies: dyspnea, productive cough or non-productive cough GI: Reports: constipation; Denies: abdominal pain, nausea, vomiting, diarrhea or hematochezia : Denies: flank pain, dysuria or hematuria Musc: Denies: neck pain, back pain or extremity swelling Skin/Breast: Denies: rash or new lesions Neuro: Denies: headache(s), numbness in extremities or weakness in extremities PFS ED PFSH: Medical History Bipolar 2 disorder Chronic migraine Diagnosed in 2017 and she denies having any auras. This is managed by her primary care provider. Hypothyroidism Diagnosed at the age of 14 and has been on medication managed by her primary care provider No pertinent past medical history Denies: diabetes, asthma, hypertension, seizures, DVT/PE PCP: AGUSTIN Triana PTSD (post-traumatic stress disorder) PTSD along with multiple other psychiatric diagnoses of ADHD, bipolar disorder--this is managed by Dr. Flores Surgical History H/O foot surgery (~10/2018) left foot- flat foot [place] teeth extracted Family History Grandmother Heart disease Maternal Breast cancer maternal; age at diagnosis unknown Mother Diabetes Ovarian cancer diagnosed at age 43 Family/Other Family history of thyroid problem Paternal uncle Grandfather Stroke Paternal Hypertension Paternal Denies family history of Colon cancer Hyperlipidemia Uterine cancer Social History Smoking and tobacco status: current some day smoker Alcohol intake: never History of recent travel: No Physical Exam Const: COMMON NORMALS: no acute distress, patient oriented x3 and alert GENERAL APPEARANCE: cooperative and comfortable HENMT: COMMON NORMALS: normocephalic HEAD & SCALP: normocephalic MOUTH: Normal oral and palatal mucosa present THROAT: posterior oropharynx normal and uvula midline Neck/C-Spine: COMMON NORMALS: supple GENERAL: Yes normal visual inspection Resp: COMMON NORMALS: normal respiratory effort, No retractions, No use of accessory muscles and clear to auscultation bilaterally AUSCULTATION: clear to auscultation bilaterally Cardio: COMMON NORMALS: regular rate, regular rhythm, S1 normal heart sound present, S2 normal heart sound present, No gallops present (Cardio), No clicks present (Cardio), No murmurs present (Cardio) and Peripheral pulses 2+ throughout RATE: regular rate RHYTHM: regular rhythm HEART SOUNDS: S1 normal heart sound present and S2 normal heart sound present PERIPHERAL PULSES: Peripheral pulses 2+ throughout GI: COMMON NORMALS: Normal to inspection, nondistended, normoactive bowel sounds present, Soft to palpation, non-tender and no masses PALPATION: Yes Soft to palpation and No Tenderness to palpation present (GI) : COMMON NORMALS: Yes no CVA tenderness BLADDER/KIDNEY EXAM: Yes no CVA tenderness Back/Pelvis: COMMON NORMALS: no CVA tenderness Extremity: COMMON NORMALS: normal to inspection Neuro: COMMON NORMALS: patient oriented x3 SENSORIUM/ORIENTATION: Yes alert GAIT: Yes Normal gait present Skin: GENERAL SKIN EXAM: dry skin Course Vital Signs: Vital signs: Vital Signs Temperature 97.9 F 02/15/21 22:26 Pulse Rate 88 02/15/21 23:29 Respiratory Rate 18 02/15/21 23:29 Blood Pressure 117/88 02/15/21 23:29 Pulse Oximetry 100 02/15/21 23:29 MDM - Abdominal Pain MDM Narrative: Medical decision making narrative: Patient is a 25 oh female comes to the ED with constipation. She appears in no acute distress or pain and her exam is benign. Vitals are stable. KUB- no fecal impaction but does show large amount of stool in the colon. Patient was given a Fleet enema here and discharged home. She was told to continue taking her lactulose and MiraLAX as previously prescribed. Follow-up with PCP in 7 to 10 days for reevaluation. Return to ED precautions given. Patient understood agree with plan. Imaging Data ^: KUB: Attestation: I personally reviewed and interpreted this imaging study as follows: My impression: KUB?patient appears to have a lot of stool in the colon, findings suggestive of constipation. No fecal impaction seen. Radiologist's impression: [address] [address]FCxd ReportSigned Patient: Kanika Baumann #: [id number]: 1995Acct#:[id number]/Sex: 25 / FADM Date: 02/15/21Loc: ERRoom/Bed:Attending Dr: Ordering Provider/Ordering MD: Clare Ramsay MD Date of Service: 02/15/21 Procedure(s): XR KUB [id number] Accession Number(s): [id number] Report Number: [id number] PROCEDURE INFORMATION: Exam: XR Abdomen Exam date and time: 02/15/2021 9:55 PM Age: 25 years old Clinical indication: Constipation TECHNIQUE: Imaging protocol: XR of the abdomen. Views: Frontal supine view of the abdomen. 1 View. COMPARISON: CR XR abdomen min 2V [id number] 08/27/2020 9:37 AM FINDINGS: Lungs: Mild nonspecific opacity in the left lower lung, similar to the findings on 02/06/2021. Gastrointestinal tract: Normal. No bowel dilation. Bones/joints: Unremarkable. XR/XR KUB [id number] IMPRESSION: 1. No acute intra-abdominal findings. 2. Nonspecific left lower lung opacity, similar to 02/06/2021. Radiation Dose CTDIVOL = (mGy): DLP = (mGy-cm) Dictated By:Sonido Mcdowell MDSigned By:Sonido Mcdowelligned Date/Time:02/16/21 0048DD/ Discharge Plan Discharge Patient Disposition: Home Clinical Impression: Constipation Qualifiers: Constipation type: unspecified constipation type Qualified Code(s): K59.00 - Constipation, unspecified Condition: Stable Prescriptions: No Action levothyroxine 25 mcg capsule 25 mcg PO DAILY RF: 0 acetaminophen [Tylenol Extra Strength] 500 mg tablet 1,000 mg PO Q4H PRN (Reason: Pain) RF: 0 lamotrigine 100 mg tablet 50 mg PO BID RF: 0 melatonin 10 mg capsule 10 mg PO DAILY RF: 0 Nexplanon 68 mg implant 1 implant subdermal .every three years Qty: 1 RF: 0 docusate sodium [Colace] 100 mg capsule 100 mg PO BID PRNRF: 0 hydroxyzine HCl 25 mg tablet 25 mg PO TID RF: 0 dicyclomine 10 mg capsule 10 mg PO QID RF: 0 amoxicillin 500 mg capsule 500 mg PO BID RF: 0 cetirizine 10 mg tablet 10 mg PO DAILY PRNRF: 0 (DME) Three quarter length sport custom molded orthotics See Rx Instructions .Route .MEDSUPPLY Qty: 1 RF: 0 guanfacine 1 mg tablet 1 mg PO DAILY RF: 0 lithium carbonate 150 mg capsule 300 mg PO TID RF: 0 meloxicam 7.5 mg tablet 7.5 mg PO DAILY RF: 0 pantoprazole 40 mg Tablet,Delayed Release (Dr/Ec) 40 mg PO DAILY RF: 0 lamotrigine 100 mg Tablet 200 mg PO BEDTIME RF: 0 Abilify Maintena 400 mg Suspension,Extended Rel Syring 400 mg IM PER PKG DIR RF: 0 albuterol sulfate 90 mcg/actuation HFA aerosol inhaler 2 inh INHALATION Q4H PRN (Reason: shortness of breath or wheezing, cough) Qty: 18 RF: 0 Discharge Orders: Discharge ED (Routine); Ordered 02/15/21 Ordered By: Anjum Higginbotham Referrals: Sandy Rutherford FNP [Primary Care Provider] - Discharge Diet: Regular Discharge Activity: Resume usual activity Patient Instructions: Constipation (ED), High Fiber Diet (ED) Activity Restrictions/Additional Instructions: Follow-up with medical provider as directed. Continue taking your MiraLAX and lactulose for the next 3 days. Drink plenty fluids and stay hydrated. Return to the ER or your medical provider if condition worsens. Please read and understand discharge instructions. Thank you for choosing [facility] for your healthcare needs today. Please realize this is an emergency room and that we are providing you with a medical screening exam and this may not be complete and all inclusive of all the testing and or work up that you may need to determine your ailment or severity of your illness. It is very important that you follow up as instructed or that you return to the Emergency Department should you have concerns or if your condition changes or worsens in any way. Coding Level of Care Code ED Filteration Operator for Marcelle Fwd Exam Comprehensive
[2021-02-15 23:29] VITALS: BP 117/88; PULSE 88; RESP 18; O2SAT 100
== END 2021-02-15 23:31 | disposition home or self-care (01) ==
PROVIDERS: Emergency Provider Physician Assistant; PCP Nurse Practitioner Family
DX: K59.00 Constipation, unspecified (principal); F17.210 Nicotine dependence, cigarettes, uncomplicated
CPT/HCPCS: 74018; 99281

== ENCOUNTER → 2021-02-26 08:02 | Outpatient (BNVA) | payer MEDICAID, SELFPAY | PROVIDERS: PCP Nurse Practitioner Family; Visit Provider Specialist | DX: G43.711 Chronic migraine without aura, intractable, with status migrainosus (principal); F17.200 Nicotine dependence, unspecified, uncomplicated | CPT/HCPCS: 64615; J0585 ==

== ENCOUNTER → 2021-03-02 08:42 | Outpatient (BNVA) | payer MEDICAID, SELFPAY | PROVIDERS: PCP Nurse Practitioner Family; Visit Provider Counselor Mental Health | DX: F43.10 Post-traumatic stress disorder, unspecified (principal); F31.81 Bipolar II disorder | CPT/HCPCS: 90834 ==

== ENCOUNTER → 2021-03-19 09:50 | Outpatient (BNVA) | payer MEDICAID, SELFPAY | PROVIDERS: PCP Nurse Practitioner Family; Visit Provider Counselor Mental Health | DX: F43.10 Post-traumatic stress disorder, unspecified (principal); F31.81 Bipolar II disorder | CPT/HCPCS: 90834 ==

== ENCOUNTER → 2021-03-20 13:19 | Outpatient (BNVA) | payer MEDICAID, SELFPAY | PROVIDERS: PCP Nurse Practitioner Family; Visit Provider Obstetrics & Gynecology | DX: N94.6 Dysmenorrhea, unspecified (principal); N83.202 Unspecified ovarian cyst, left side; N83.201 Unspecified ovarian cyst, right side | CPT/HCPCS: 76830 ==

== ENCOUNTER 2021-03-25 19:59 | Emergency (ER) | payer MEDICAID, SELFPAY ==
[2021-03-25 20:05] VITALS: BP 126/80; PULSE 76; RESP 18; TEMP 37; O2SAT 100; BMI 29.6
[2021-03-25 20:44] LABS: Basophils # 0.1 10^3/uL (0.0-0.1); Basophils % 0.6 %; Eosinophils # 0.5 10^3/uL (0.0-0.8); Eosinophils % 4.8 %; Hematocrit 43.4 % (37.0-47.0); Hemoglobin 14.1 g/dL (11.5-15.3); Lymphocytes # 3.1 10^3/uL (0.8-4.8); Lymphocytes % 32.3 %; Mean Corpuscular HGB Conc 32.5 g/dL (30.0-36.0); Mean Corpuscular Hemoglobin 29.2 pg (28.0-34.0); Mean Corpuscular Volume 89.9 fl (81-99); Mean Platelet Volume 9.4 fL (7.4-10.4); Monocytes % 10.4 %; Neutrophils # 4.97 10^3/uL (1.8-7.7); Neutrophils % 51.4 %; Nucleated Red Blood Cells % 0 %; Platelet Count 325 10^3/cmm (130-400); Red Blood Count 4.83 10^6/uL (4.1-5.3); Red Cell Distribution Width 12.1 % (12.1-15.1); White Blood Count 9.7 10^3/uL (4.0-10.0)
[2021-03-25 21:02] LABS: HCG, Serum Qual Negative (Negative)
[2021-03-25 21:09] LABS: Alanine Aminotransferase 11 U/L (0-33); Albumin Level 4.6 g/dL (3.5-5.2); Alkaline Phosphatase 95 IU/L (35-105); Anion Gap 18.7 (5-19); Aspartate Amino Transferase 14 U/L (0-32); Blood Urea Nitrogen 11 mg/dL (6-20); Calcium 8.9 mg/dL (8.5-10.5); Carbon Dioxide 22 mmol/L (22-29); Chloride 102 mmol/L (98-107); Globulin 2.9 g/dL (1.3-4.6); Glomerular Filtration Rate 102.8 mL/min (90-130); Glucose 71 mg/dL (65-115); Lipase 75 U/L (13-60); Osmolality Calculated 286 mOsm/kg (285-295); Potassium 3.7 mmol/L (3.5-5.1); Sodium 139 mmol/L (136-145); Total Bilirubin 0.2 mg/dL (0.15-1.2); Total Protein 7.5 g/dL (6.6-8.7)
[2021-03-25 21:21] LABS: Protein Urine Neg (Negative); Urine Appearance Hazy (CLEAR); Urine Color Straw (Yellow); pH Urine 6 (5-7)
[2021-03-25 21:22] LABS: Add Urine Microscopic? YES; Bilirubin Urine Neg (Negative); Blood Urine Neg (Negative); Glucose Urine UA Norm (Normal); Ketones Urine Negative (Negative); Leukocyte Esterase Urine 1+ (Negative); Nitrate Urine Negative (Negative); Urobilinogen Urine Neg (Negative)
[2021-03-25 21:23] LABS: Add Urine Culture? Yes; Bacteria Urine 3+ /hpf; RBC Urine RARE /hpf (0-2); Squamous Epithelial Cell Urine 0-4 /hpf (0-5)
--- NOTE | 2021-03-25 21:40 | W.ED.ABDPA2 ---
HPI - Abdominal Pain General: Chief Complaint: Abdominal Pain Stated Complaint: R SIDE PAIN Time Seen by Provider: 03/25/21 20:29 History of Present Illness: HPI narrative: Patient is a 25 oh female comes to the ED via EMS with abdominal pain. EMS gave patient 4 mg of Zofran in route. Abdominal pain started earlier today after she ate. Eating any spicy or greasy food seems to make abdominal pain worse. She has had this type of pain on and off for the past several months. Pain is located in the right upper quadrant of the abdomen she rates it currently a 6 out of 10. She endorses having some nausea but has not had any emesis. Denies any fever, chills, chest pain, shortness of breath, dysuria or hematuria. Patient says she has chronic diarrhea and takes MiraLAX daily. Denies any blood in stool. Associated Symptoms: Reports nausea; Denies chills, constipation, diarrhea, dysuria, fever(s), hematochezia, hematuria and vomiting Related Data: Date of Last Menstrual Period: 03/11/21 Review of Systems Const: Denies: fever(s), chills or fatigue Eyes: Denies: change in vision or eye discomfort ENMT: Denies: throat pain, odynophagia, nasal discharge or nasal congestion Card: Denies: chest pain, palpitations, edema, swelling of feet/ankles, dyspnea on exertion or orthopnea Resp: Denies: dyspnea, productive cough or non-productive cough GI: Reports: abdominal pain and nausea; Denies: vomiting, diarrhea, constipation or hematochezia : Denies: flank pain, dysuria or hematuria Musc: Denies: neck pain, back pain or extremity swelling Skin/Breast: Denies: rash or new lesions Neuro: Denies: headache(s), numbness in extremities or weakness in extremities PFSH ED PFSH: Medical History Bipolar 2 disorder Chronic migraine Denies having aura and follows up with neurology-Dr. Vela Hypothyroidism Diagnosed at the age of 14 and has been on medication managed by her primary care provider No pertinent past medical history Denies: diabetes, asthma, hypertension, seizures, DVT/PE PCP: [facility] PTSD (post-traumatic stress disorder) PTSD along with multiple other psychiatric diagnoses of ADHD, bipolar disorder--this is managed by Dr. Flores Surgical History H/O foot surgery (~10/2018) left foot- flat foot Smilax teeth extracted Family History Grandmother Heart disease Maternal Breast cancer maternal; age at diagnosis unknown Mother Diabetes Ovarian cancer diagnosed at age 43 Family/Other Family history of thyroid problem Paternal uncle Grandfather Stroke Paternal Hypertension Paternal Denies family history of Colon cancer Hyperlipidemia Uterine cancer Social History Smoking and tobacco status: light tobacco smoker Alcohol intake: never History of recent travel: No Female Reproductive History: Date of last menstrual period: 03/11/21 Physical Exam Const: COMMON NORMALS: no acute distress, patient oriented x3 and alert GENERAL APPEARANCE: cooperative and comfortable HENMT: COMMON NORMALS: normocephalic HEAD & SCALP: normocephalic MOUTH: Normal oral and palatal mucosa present THROAT: posterior oropharynx normal and uvula midline Eye: COMMON NORMALS: Equal, round and reactive pupils present PUPIL: Yes Equal, round and reactive pupils present Neck/C-Spine: COMMON NORMALS: supple GENERAL: Yes normal visual inspection Resp: COMMON NORMALS: normal respiratory effort, No retractions, No use of accessory muscles and clear to auscultation bilaterally AUSCULTATION: clear to auscultation bilaterally Cardio: COMMON NORMALS: regular rate, regular rhythm, S1 normal heart sound present, S2 normal heart sound present, No gallops present (Cardio), No clicks present (Cardio), No murmurs present (Cardio) and Peripheral pulses 2+ throughout RATE: regular rate RHYTHM: regular rhythm HEART SOUNDS: S1 normal heart sound present and S2 normal heart sound present PERIPHERAL PULSES: Peripheral pulses 2+ throughout GI: COMMON NORMALS: Normal to inspection, nondistended, normoactive bowel sounds present, Soft to palpation and no masses PALPATION: Yes Soft to palpation and Yes Tenderness to palpation present (GI) Details: RUQ (Positive Bryson sign.) : COMMON NORMALS: Yes no CVA tenderness BLADDER/KIDNEY EXAM: Yes no CVA tenderness Back/Pelvis: COMMON NORMALS: no CVA tenderness Extremity: COMMON NORMALS: normal to inspection Neuro: COMMON NORMALS: patient oriented x3 SENSORIUM/ORIENTATION: Yes alert GAIT: Yes Normal gait present Skin: GENERAL SKIN EXAM: dry skin Course Reevaluation(s): Reevaluation #1: Patient's pain and nausea was well controlled after she received IV morphine, fluids and Zofran. No episodes of emesis while here in the ED. Time: 22:30 Vital Signs: Vital signs: Vital Signs Temperature 98.6 F 03/25/21 20:05 Pulse Rate 86 03/25/21 23:58 Respiratory Rate 18 03/25/21 23:58 Blood Pressure 126/79 03/25/21 23:58 Pulse Oximetry 97 03/25/21 23:58 MDM - Abdominal Pain MDM Narrative: Medical decision making narrative: Patient is a 25-year-old female comes to the ED with right upper quadrant abdominal pain. Endorses having episodes of similar symptoms over the past several months. Current symptoms started today after she ate some food. Endorses some nausea as well but denies any emesis. Denies fever, chills, bladder or bowel symptoms. Vital stable. Exam shows patient that is nontoxic and in no acute distress. She has some right upper quadrant abdominal tenderness with positive Bryson sign. CBC, CMP and UA were unremarkable. Ultrasound of gallbladder showed no acute findings. Patient was given IV Zofran while in route via EMS and her nausea had resolved. She was given some IV fluids and morphine here in the ED and pain was well controlled as well. She was diagnosed with biliary colic and discharged home with a prescription for hydrocodone for pain. She has Zofran at home that she can use for nausea. She was instructed to have a clear liquid diet for the next 12 hours and then to advance diet as tolerated. Follow-up with PCP in 5 to 7 days for reevaluation. Return to ED precautions given. Patient understood and agree with plan. Lab Data: Attestation: I reviewed the patient's lab results. Labs: Lab Results 03/25/21 03/25/21 03/25/21 20:10 20:10 20:10 WBC 9.7 10^3/uL 10^3/ uL (4.0-10.0) RBC 4.83 10^6/uL 10^6 /uL (4.1-5.3) Hgb 14.1 g/dL g/dL (11.5-15.3) Hct 43.4 % % (37.0-47.0) MCV 89.9 fl fl (81-99) MCH 29.2 pg pg (28.0-34.0) MCHC 32.5 g/dL g/dL (30.0-36.0) RDW 12.1 % % (12.1-15.1) Plt Count 325 10^3/cmm 10^3 /cmm (130-400) MPV 9.4 fL fL (7.4-10.4) Neut % (Auto) 51.4 % % Lymph % (Auto) 32.3 % % Gonzales % (Auto) 10.4 % % Eos % (Auto) 4.8 % % Baso % (Auto) 0.6 % % Neut # (Auto) 4.97 10^3/uL 10^3 /uL (1.8-7.7) Lymph # (Auto) 3.1 10^3/uL 10^3/ uL (0.8-4.8) Gonzales # (Auto) 1.0 10^3/uL H 10^ 3/uL (0.2-0.9) Eos # (Auto) 0.5 10^3/uL 10^3/ uL (0.0-0.8) Baso # (Auto) 0.1 10^3/uL 10^3/ uL (0.0-0.1) Nucleated RBC % (a uto) 0 % % Nucleated RBCs # 0.0 /100WBC /100W BC Sodium 139 mmol/L mmol/L (136-145) Potassium 3.7 mmol/L mmol/L (3.5-5.1) Chloride 102 mmol/L mmol/L (98-107) Carbon Dioxide 22 mmol/L mmol/L (22-29) Anion Gap 18.7 (5-19) BUN 11 mg/dL mg/dL (6-20) Creatinine 0.7 mg/dL mg/dL (0.5-0.9) GFR Calculation 102.8 mL/min mL/m in (90-130) Glucose 71 mg/dL mg/dL (65-115) Calculated Osmolal ity 286 mOsm/kg mOsm/ kg (285-295) Calcium 8.9 mg/dL mg/dL (8.5-10.5) Total Bilirubin 0.2 mg/dL mg/dL (0.15-1.2) AST 14 U/L U/L (0-32) ALT 11 U/L U/L (0-33) Alkaline Phosphata se 95 IU/L IU/L (35-105) Total Protein 7.5 g/dL g/dL (6.6-8.7) Albumin 4.6 g/dL g/dL (3.5-5.2) Globulin 2.9 g/dL g/dL (1.3-4.6) Lipase 75 U/L H U/L (13-60) HCG, Qual Negative (Negative) Urine Color Urine Appearance Urine pH Ur Specific Gravit y Urine Protein Urine Glucose (UA) Urine Ketones Urine Blood Urine Nitrate Urine Bilirubin Urine Urobilinogen Ur Leukocyte Nitza ase Urine RBC Urine WBC Ur Squamous Epith Cells Amorphous Sediment Urine Bacteria 03/25/21 20:20 WBC RBC Hgb Hct MCV MCH MCHC RDW Plt Count MPV Neut % (Auto) Lymph % (Auto) Gonzales % (Auto) Eos % (Auto) Baso % (Auto) Neut # (Auto) Lymph # (Auto) Gonzales # (Auto) Eos # (Auto) Baso # (Auto) Nucleated RBC % (a uto) Nucleated RBCs # Sodium Potassium Chloride Carbon Dioxide Anion Gap BUN Creatinine GFR Calculation Glucose Calculated Osmolal ity Calcium Total Bilirubin AST ALT Alkaline Phosphata se Total Protein Albumin Globulin Lipase HCG, Qual Urine Color Straw (Yellow) Urine Appearance Hazy A (CLEAR) Urine pH 6 (5-7) Ur Specific Gravit y 1.010 (1.005-1.030) Urine Protein Neg (Negative) Urine Glucose (UA) Norm (Normal) Urine Ketones Negative (Negative) Urine Blood Neg (Negative) Urine Nitrate Negative (Negative) Urine Bilirubin Neg (Negative) Urine Urobilinogen Neg mg/dL mg/dL (Negative) Ur Leukocyte Nitza ase 1+ H (Negative) Urine RBC Rare /hpf /hpf (0-2) Urine WBC 5-10 /hpf H /hpf (0-5) Ur Squamous Epith Cells 0-4 /hpf H /hpf (0-5) Amorphous Sediment Not Reportable Urine Bacteria 3+ /hpf H /hpf (NONE) Imaging Data ^: US: Attestation: I personally reviewed and interpreted this imaging study as follows: Radiologist's impression: [address] [address] Ultrasound Report Signed Patient: Kanika Baumann Unit #: [id number] : 1995 Age/Sex: 25 / F ADM Date: 03/25/21 Loc: ER Room/Bed: Attending Dr: Ordering Provider/Ordering MD: Anjum Higginbotham Date of Service: 03/25/21 Procedure(s): US gall bladder 27625 Accession Number(s): [id number] Report Number: [id number] PROCEDURE INFORMATION: Exam: US Abdomen, Limited; Right Upper Quadrant Exam date and time: 03/25/2021 9:47 PM Age: 25 years old Clinical indication: Abdominal pain; Epigastric; Additional info: Ruq pain, worst after eating, nausea TECHNIQUE: Imaging protocol: US abdomen. Real time ultrasound with image documentation. Limited exam focused on the right upper quadrant. COMPARISON: US gall bladder [id number] 05/20/2020 7:19 AM FINDINGS: Liver: Mild hepatic steatosis. Gallbladder: Normal. No gallstones. There is no gallbladder wall thickening. Common bile duct: Normal. No stones. No dilation. Pancreas: Visualized pancreas is unremarkable. Right kidney: Normal. No mass. No hydronephrosis. US/US gall bladder [id number] IMPRESSION: 1. No acute findings. 2. Mild hepatic steatosis. Radiation Dose CTDIVOL = (mGy): DLP = (mGy-cm) Dictated By: José Antonio Landaverde MD Signed By: José Antonio Landaverde MD Signed Date/Time: 03/25/212309 DD/ 46 Discharge Plan Discharge Patient Disposition: Home Clinical Impression: Biliary colic symptom Condition: Stable Prescriptions: No Action levothyroxine 25 mcg capsule 25 mcg PO DAILY RF: 0 acetaminophen [Tylenol Extra Strength] 500 mg tablet 1,000 mg PO Q4H PRN (Reason: Pain) RF: 0 lamotrigine 100 mg tablet 50 mg PO BID RF: 0 Nexplanon 68 mg implant 1 implant subdermal .every three years Qty: 1 RF: 0 hydroxyzine HCl 25 mg tablet See Rx Instructions PO TID RF: 0 docusate sodium [Colace] 100 mg capsule 100 mg PO BID RF: 0 dicyclomine 10 mg capsule 10 mg PO QID RF: 0 cetirizine 10 mg tablet 10 mg PO DAILY PRNRF: 0 Invega Sustenna 156 mg/mL syringe 156 mg IM Q30D RF: 0 onabotulinumtoxinA [Botox] IM .every 3 month RF: 0 hydroxyzine HCl 25 mg tablet 25 mg PO TID PRNRF: 0 diazepam 10 mg tablet 10 mg PO ONCE PRN (Reason: anxiety) 1 Days Qty: 2 RF: 1 guanfacine 1 mg tablet 1 mg PO TID RF: 0 lithium carbonate 150 mg capsule 300 mg PO TID RF: 0 meloxicam 7.5 mg tablet 7.5 mg PO DAILY RF: 0 adapalene [Differin] 0.3 % gel with pump 1 applic topical DAILY Qty: 45 RF: 5 clindamycin-benzoyl peroxide 1.2 %(1 % base) -5 % gel 1 applic topical DAILY Qty: 45 RF: 5 pantoprazole 40 mg Tablet,Delayed Release (Dr/Ec) 40 mg PO DAILY RF: 0 lamotrigine 100 mg tablet 150 mg PO BEDTIME RF: 0 albuterol sulfate 90 mcg/actuation HFA aerosol inhaler 2 inh INHALATION Q4H PRN (Reason: shortness of breath or wheezing, cough) Qty: 18 RF: 0 Discharge Orders: Discharge ED (Routine); Ordered 03/25/21 Ordered By: Anjum Higginbotham Referrals: Sandy Rutherford FNP [Primary Care Provider] - Discharge Diet: Advance as tolerated and Clear Liquid Discharge Activity: Increase activity as tolerated Patient Instructions: Biliary Colic (ED), Abdominal Pain (ED), Opioid Safety Activity Restrictions/Additional Instructions: Follow-up with medical provider as directed in 5 to 7 days for reevaluation. Start with a clear liquid diet for the next 12 hours then advance diet as tolerated. Take medications as prescribed. Try to avoid spicy or greasy foods that can cause worsening symptoms. Return to the ER or your medical provider if condition worsens. Please read and understand discharge instructions. Thank you for choosing [facility] for your healthcare needs today. Please realize this is an emergency room and that we are providing you with a medical screening exam and this may not be complete and all inclusive of all the testing and or work up that you may need to determine your ailment or severity of your illness. It is very important that you follow up as instructed or that you return to the Emergency Department should you have concerns or if your condition changes or worsens in any way. Coding Level of Care Code ED Estate Tax Examiner for Marcelle Tyler Exam Comprehensive
--- NOTE | 2021-03-25 21:47 | USR_ITS ---
PROCEDURE INFORMATION: Exam: US Abdomen, Limited; Right Upper Quadrant Exam date and time: 03/25/2021 9:47 PM Age: 25 years old Clinical indication: Abdominal pain; Epigastric; Additional info: Ruq pain, worst after eating, nausea TECHNIQUE: Imaging protocol: US abdomen. Real time ultrasound with image documentation. Limited exam focused on the right upper quadrant. COMPARISON: US gall bladder [id number] 05/20/2020 7:19 AM FINDINGS: Liver: Mild hepatic steatosis. Gallbladder: Normal. No gallstones. There is no gallbladder wall thickening. Common bile duct: Normal. No stones. No dilation. Pancreas: Visualized pancreas is unremarkable. Right kidney: Normal. No mass. No hydronephrosis. US/US gall bladder [id number] IMPRESSION: 1. No acute findings. 2. Mild hepatic steatosis. Radiation Dose CTDIVOL = (mGy): DLP = (mGy-cm)
[2021-03-25] MEDS: sodium chloride 0.9% 1,000 ML 999 ML IV (21:50)
[2021-03-25 21:55] VITALS: RESP 18; O2SAT 97
[2021-03-25] MEDS: morphine 4 mg/mL SDV 1 mL 2 MG IVP (21:55)
[2021-03-25 23:00] VITALS: BP 106/62; PULSE 64; RESP 19; O2SAT 100
[2021-03-25 23:58] VITALS: BP 126/79; PULSE 86; RESP 18; O2SAT 97
== END 2021-03-25 23:59 | disposition home or self-care (01) ==
PROVIDERS: Emergency Medicine; Emergency Provider Physician Assistant; PCP Nurse Practitioner Family
DX: K80.50 Calculus of bile duct without cholangitis or cholecystitis without obstruction (principal); F17.210 Nicotine dependence, cigarettes, uncomplicated
CPT/HCPCS: 76705; 80053; 81001; 81003; 83690; 84703; 85025; 87086; 93976; 96361; 96374; 99284; J2270; J7030

== ENCOUNTER → 2021-03-27 12:48 | Outpatient (BNVA) | payer MEDICAID, SELFPAY | PROVIDERS: PCP Nurse Practitioner Family; Visit Provider Counselor Mental Health | DX: F31.2 Bipolar disorder, current episode manic severe with psychotic features (principal); F31.89 Other bipolar disorder; F90.0 Attention-deficit hyperactivity disorder, predominantly inattentive type | CPT/HCPCS: 90834 ==

== ENCOUNTER → 2021-04-06 07:58 | Outpatient (BNVA) | payer MEDICAID, SELFPAY | PROVIDERS: PCP Nurse Practitioner Family; Visit Provider Counselor Mental Health | DX: F43.10 Post-traumatic stress disorder, unspecified (principal); F31.81 Bipolar II disorder; F90.9 Attention-deficit hyperactivity disorder, unspecified type | CPT/HCPCS: 90834 ==

== ENCOUNTER → 2021-04-16 15:03 | Outpatient (BNVA) | payer MEDICAID, SELFPAY | PROVIDERS: PCP Nurse Practitioner Family; Visit Provider Counselor Mental Health | DX: F43.12 Post-traumatic stress disorder, chronic (principal); F31.81 Bipolar II disorder | CPT/HCPCS: 90834 ==

== ENCOUNTER → 2021-04-29 13:40 | Outpatient (BNVA) | payer MEDICAID, SELFPAY | PROVIDERS: PCP Nurse Practitioner Family; Visit Provider Counselor Mental Health | DX: F43.12 Post-traumatic stress disorder, chronic (principal); F31.81 Bipolar II disorder | CPT/HCPCS: 90834 ==

== ENCOUNTER 2021-05-17 19:14 | Emergency (ER) | payer MEDICAID, SELFPAY ==
[2021-05-17 19:59] VITALS: BP 116/74; PULSE 77; RESP 18; TEMP 36.8; O2SAT 100; BMI 28.9
--- NOTE | 2021-05-17 20:06 | CTR_ITS ---
PROCEDURE INFORMATION: Exam: CT Head Without Contrast Exam date and time: 05/17/2021 8:06 PM Age: 25 years old Clinical indication: Injury or trauma; Fall; Blunt trauma (contusions or hematomas); Without loss of consciousness TECHNIQUE: Imaging protocol: Computed tomography of the head without contrast. Radiation optimization: All CT scans at this facility use at least one of these dose optimization techniques: automated exposure control; mA and/or kV adjustment per patient size (includes targeted exams where dose is matched to clinical indication); or iterative reconstruction. COMPARISON: 1. CT head wo con* [id number] 2020-12-29 22:[address] head wo con* [id number] 2018-08-16 20:49 RADIATION DOSE METRICS: Total DLP (mGy-cm): 735.85 FINDINGS: Brain: Normal. No hemorrhage. Unremarkable white matter. No mass effect. Cerebral ventricles: No ventriculomegaly. Paranasal sinuses: Visualized sinuses are unremarkable. No fluid levels. Mastoid air cells: Visualized mastoid air cells are well aerated. Bones/joints: Unremarkable. No acute fracture. Soft tissues: Unremarkable. CT/CT head wo con* [id number] IMPRESSION: No acute intracranial abnormality.
--- NOTE | 2021-05-17 20:06 | CTR_ITS ---
PROCEDURE INFORMATION: Exam: CT Cervical Spine Without Contrast Exam date and time: 05/17/2021 8:06 PM Age: 25 years old Clinical indication: Pain and injury or trauma; Fall; Blunt trauma; Neck pain; Additional info: Trauma, fall TECHNIQUE: Imaging protocol: Computed tomography images of the cervical spine without contrast. Radiation optimization: All CT scans at this facility use at least one of these dose optimization techniques: automated exposure control; mA and/or kV adjustment per patient size (includes targeted exams where dose is matched to clinical indication); or iterative reconstruction. COMPARISON: 1. CT cervical spin wo con* [id number] 2020-12-29 22:[address] Cervical Spine wo* [id number] 2017-03-12 23:09 RADIATION DOSE METRICS: Total DLP (mGy-cm): 621.61 FINDINGS: Bones/joints: Straightening of the normal cervical lordotic curvature. Normal vertebral body heights and alignments. No fractures. Discs/Spinal canal/Neural foramina: No significant disc protrusion. No severe spinal canal stenosis. No significant neural foraminal narrowing. Lungs: Lung apices are normal. Soft tissues: Unremarkable. CT/CT cervical spin wo con* [id number] IMPRESSION: No acute fracture/subluxation.
--- NOTE | 2021-05-17 20:28 | W.ED.FALL ---
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 Patient states she accidentally tripped over a cord in her home and landed on the back of her head. She is complaining of left-sided neck pain and pain to the back of her scalp. She denies LOC but states she was dazed after words. Caregiver states she has been acting normal since event. No vomiting. She has no other injuries or complaints at this time. complaint: fall Onset (ago): hour(s) Fall from: standing Fall witnessed: no Place fall occurred: home Loss of consciousness: None Prolonged down time: no Symptoms prior to fall: none Context: tripped/slipped Location of injury: head and neck Associated symptoms-after fall: Reports no associated symptoms, headache(s) and neck pain; Denies abdominal pain, chest pain, confusion or difficulty walking Review of Systems Const: Denies: fever(s), chills, body aches or fatigue Eyes: Denies: change in vision, blurry vision or photophobia Card: Denies: chest pain Resp: Denies: dyspnea GI: Denies: abdominal pain, nausea or vomiting Musc: Reports: neck pain; Denies: back pain, extremity pain, extremity swelling, joint pain or joint swelling Neuro: Reports: headache(s); Denies: numbness in extremities, weakness in extremities, sensory changes, lack of coordination, difficulty walking, dizziness, confusion, behavioral changes, Slurred speech present, difficulty communicating thoughts or seizure-like activity PFS ED PFSH: Medical History Bipolar 2 disorder Chronic migraine Denies having aura and follows up with neurology-Dr. Vela Hypothyroidism Diagnosed at the age of 14 and has been on medication managed by her primary care provider No pertinent past medical history Denies: diabetes, asthma, hypertension, seizures, DVT/PE PCP: [facility] PTSD (post-traumatic stress disorder) PTSD along with multiple other psychiatric diagnoses of ADHD, bipolar disorder--this is managed by Dr. Flores Surgical History H/O foot surgery (~10/2018) left foot- flat foot [place] teeth extracted Family History Grandmother Heart disease Maternal Breast cancer maternal; age at diagnosis unknown Mother Diabetes Ovarian cancer diagnosed at age 43 Family/Other Family history of thyroid problem Paternal uncle Grandfather Stroke Paternal Hypertension Paternal Denies family history of Colon cancer Hyperlipidemia Uterine cancer Social History Smoking and tobacco status: never smoked Alcohol intake: never History of recent travel: No Female Reproductive History: Date of last menstrual period: 03/11/21 Physical Exam Const: COMMON NORMALS: no acute distress, patient oriented x3, no limitations, alert and well nourished GENERAL APPEARANCE: cooperative ORIENTATION/CONSCIOUSNESS: Yes awake, Yes oriented to person, Yes oriented to place and Yes oriented to time OTHER: mild baseline cognitive delays HENMT: COMMON NORMALS: normocephalic and atraumatic HEAD & SCALP: normal to inspection, normocephalic and atraumatic Neck/C-Spine: COMMON NORMALS: full ROM CERVICAL SPINE: No Cervical spine tenderness and Yes Paracervical muscle tenderness left Resp: COMMON NORMALS: normal respiratory effort and clear to auscultation bilaterally AUSCULTATION: clear to auscultation bilaterally Cardio: COMMON NORMALS: regular rate and regular rhythm RATE: regular rate RHYTHM: regular rhythm Back/Pelvis: COMMON NORMALS: thoracic and lumbar spine normal to inspection, no thoracic nor lumbar tenderness and thoraco-lumbar ROM normal Extremity: COMMON NORMALS: normal to inspection and full ROM GENERAL: Yes normal exam except as noted Neuro: DERECK COMA SCALE: document GCS findings [place] coma scale eye opening: Spontaneous [place] coma scale verbal response: Orientated [place] coma scale motor response: Obey commands [place] coma scale total score: 15 COMMON NORMALS: patient oriented x3, CN's II-XII intact bilaterally, moves all extremities, no focal motor deficits, no sensory deficits noted and gait normal SENSORIUM/ORIENTATION: Yes alert, Yes oriented to person, Yes oriented to place and Yes oriented to time Skin: TRAUMA: no lacerations or abrasions Course Vital Signs: Vital signs: Vital Signs Temperature 98.2 F 05/17/21 19:59 Pulse Rate 77 05/17/21 19:59 Respiratory Rate 18 05/17/21 19:59 Blood Pressure 116/74 05/17/21 19:59 Pulse Oximetry 100 05/17/21 19:59 MDM - Fall Imaging Data^: CT cervical: Radiologist's impression: [id number] [place], [place] [id number] Scan ReportSigned Patient: aKnika Baumann #: [id number]: 1995Acct#:[id number]/Sex: 25 / FADM Date: 05/17/21Loc: ERRoom/Bed:Attending Dr: Ordering Provider/Ordering MD: Marilyn Roberson Date of Service: 05/17/21 Procedure(s): CT cervical spin wo con* [id number] Accession Number(s): [id number] Report Number: [id number] PROCEDURE INFORMATION: Exam: CT Cervical Spine Without Contrast Exam date and time: 05/17/2021 8:06 PM Age: 25 years old Clinical indication: Pain and injury or trauma; Fall; Blunt trauma; Neck pain; Additional info: Trauma, fall TECHNIQUE: Imaging protocol: Computed tomography images of the cervical spine without contrast. Radiation optimization: All CT scans at this facility use at least one of these dose optimization techniques: automated exposure control; mA and/or kV adjustment per patient size (includes targeted exams where dose is matched to clinical indication); or iterative reconstruction. COMPARISON: 1. CT cervical spin wo con* [id number] 2020-12-29 22:[address] Cervical Spine wo* [id number] 2017-03-12 23:09 RADIATION DOSE METRICS: Total DLP (mGy-cm): 621.61 FINDINGS: Bones/joints: Straightening of the normal cervical lordotic curvature. Normal vertebral body heights and alignments. No fractures. Discs/Spinal canal/Neural foramina: No significant disc protrusion. No severe spinal canal stenosis. No significant neural foraminal narrowing. Lungs: Lung apices are normal. Soft tissues: Unremarkable. CT/CT cervical spin wo con* [id number] IMPRESSION: No acute fracture/subluxation. Dictated By:Louis Carballo MDSigned By:Louis Carballo MDSigned Date/Time:05/17/212034DD/ 05 CT Head: Radiologist's impression: [address] [address] [address] Scan Report Signed Patient: Kanika Baumann Unit #: [id number] : 1995 Age/Sex: 25 / F ADM Date: 05/17/21 Loc: ER Room/Bed: Attending Dr: Ordering Provider/Ordering MD: Marilyn Roberson Date of Service: 05/17/21 Procedure(s): CT head wo con* [id number] Accession Number(s): [id number] Report Number: [id number] PROCEDURE INFORMATION: Exam: CT Head Without Contrast Exam date and time: 05/17/2021 8:06 PM Age: 25 years old Clinical indication: Injury or trauma; Fall; Blunt trauma (contusions or hematomas); Without loss of consciousness TECHNIQUE: Imaging protocol: Computed tomography of the head without contrast. Radiation optimization: All CT scans at this facility use at least one of these dose optimization techniques: automated exposure control; mA and/or kV adjustment per patient size (includes targeted exams where dose is matched to clinical indication); or iterative reconstruction. COMPARISON: 1. CT head wo con* [id number] 2020-12-29 22:[address] head wo con* [id number] 2018-08-16 20:49 RADIATION DOSE METRICS: Total DLP (mGy-cm): 735.85 FINDINGS: Brain: Normal. No hemorrhage. Unremarkable white matter. No mass effect. Cerebral ventricles: No ventriculomegaly. Paranasal sinuses: Visualized sinuses are unremarkable. No fluid levels. Mastoid air cells: Visualized mastoid air cells are well aerated. Bones/joints: Unremarkable. No acute fracture. Soft tissues: Unremarkable. CT/CT head wo con* [id number] IMPRESSION: No acute intracranial abnormality. Dictated By: Louis Carballo MD Signed By: Louis Carballo MD Signed Date/Time: 05/17/212034 DD/ 05 Discharge Plan Discharge Patient Disposition: Home Clinical Impression: Fall on same level from tripping Neck muscle strain Qualifiers: Encounter type: initial encounter Qualified Code(s): S16.1XXA - Strain of muscle, fascia and tendon at neck level, initial encounter Minor head injury without loss of consciousness Qualifiers: Encounter type: initial encounter Qualified Code(s): S09.90XA - Unspecified injury of head, initial encounter Condition: Stable Prescriptions: No Action levothyroxine 25 mcg capsule 25 mcg PO DAILY RF: 0 acetaminophen [Tylenol Extra Strength] 500 mg tablet 1,000 mg PO Q4H PRN (Reason: Pain) RF: 0 lamotrigine 100 mg tablet 50 mg PO BID RF: 0 Nexplanon 68 mg implant 1 implant subdermal .every three years Qty: 1 RF: 0 hydroxyzine HCl 25 mg tablet See Rx Instructions PO TID RF: 0 docusate sodium [Colace] 100 mg capsule 100 mg PO BID RF: 0 dicyclomine 10 mg capsule 10 mg PO QID RF: 0 cetirizine 10 mg tablet 10 mg PO DAILY PRNRF: 0 Invega Sustenna 156 mg/mL syringe 156 mg IM Q30D RF: 0 onabotulinumtoxinA [Botox] IM .every 3 month RF: 0 diazepam 10 mg tablet 10 mg PO ONCE PRN (Reason: anxiety) 1 Days Qty: 2 RF: 1 polyethylene glycol 3350 [Miralax] 17 gram/dose powder 17 g PO .every other day RF: 0 guanfacine 1 mg tablet 1 mg PO TID RF: 0 lithium carbonate 150 mg capsule 300 mg PO TID RF: 0 meloxicam 7.5 mg tablet 7.5 mg PO DAILY RF: 0 clindamycin-benzoyl peroxide 1.2 %(1 % base) -5 % gel 1 applic topical DAILY Qty: 45 RF: 5 naproxen [Naprosyn] 500 mg tablet 500 mg PO BID 10 Days Qty: 20 RF: 0 pantoprazole 40 mg tablet,delayed release (DR/EC) 40 mg PO BID RF: 0 lamotrigine 100 mg tablet 150 mg PO BEDTIME RF: 0 albuterol sulfate 90 mcg/actuation HFA aerosol inhaler 2 inh INHALATION Q4H PRN (Reason: shortness of breath or wheezing, cough) Qty: 18 RF: 0 Discharge Orders: Discharge ED (Routine); Ordered 05/17/21 Ordered By: Marilyn Roberson Referrals: Sandy Rutherford FNP [Primary Care Provider] - Coding Level of Care Code ED [employer] Manager for Chg Fwd Exam Comprehensive
[2021-05-17 21:00] VITALS: RESP 16
== END 2021-05-17 21:01 | disposition home or self-care (01) ==
PROVIDERS: Emergency Provider Physician Assistant; PCP Nurse Practitioner Family
DX: S09.90XA Unspecified injury of head, initial encounter (principal); S16.1XXA Strain of muscle, fascia and tendon at neck level, initial encounter; W01.0XXA Fall on same level from slipping, tripping and stumbling without subsequent striking against object, initial encounter; Y92.099 Unspecified place in other non-institutional residence as the place of occurrence of the external cause; E03.9 Hypothyroidism, unspecified; F31.81 Bipolar II disorder; F43.10 Post-traumatic stress disorder, unspecified; G43.709 Chronic migraine without aura, not intractable, without status migrainosus; Z79.899 Other long term (current) drug therapy
CPT/HCPCS: 70450; 72125; 99282

== ENCOUNTER → 2021-05-21 10:22 | Outpatient (BNVA) | payer MEDICAID, SELFPAY | PROVIDERS: PCP Nurse Practitioner Family; Visit Provider Specialist | DX: G43.709 Chronic migraine without aura, not intractable, without status migrainosus (principal); H57.12 Ocular pain, left eye; F43.10 Post-traumatic stress disorder, unspecified | CPT/HCPCS: 64615; 99213; 99214; J0585 ==

== ENCOUNTER → 2021-05-25 14:59 | Outpatient (BNVA) | payer MEDICAID, SELFPAY | PROVIDERS: PCP Nurse Practitioner Family; Visit Provider Counselor Mental Health | DX: F31.81 Bipolar II disorder; F43.12 Post-traumatic stress disorder, chronic | CPT/HCPCS: 90834 ==

== ENCOUNTER → 2021-06-01 13:47 | Outpatient (BNVA) | payer MEDICAID, SELFPAY | PROVIDERS: PCP Nurse Practitioner Family; Visit Provider Counselor Mental Health | DX: F31.81 Bipolar II disorder (principal); F43.12 Post-traumatic stress disorder, chronic | CPT/HCPCS: 90834 ==

== ENCOUNTER → 2021-07-06 12:40 | Outpatient (BNVA) | payer MEDICAID, SELFPAY | PROVIDERS: PCP Nurse Practitioner Family; Visit Provider Counselor Mental Health | DX: F31.81 Bipolar II disorder (principal); F43.12 Post-traumatic stress disorder, chronic | CPT/HCPCS: 90837; 90834 ==

== ENCOUNTER → 2021-07-13 12:56 | Outpatient (BNVA) | payer MEDICAID, SELFPAY | PROVIDERS: PCP Nurse Practitioner Family; Visit Provider Counselor Mental Health | DX: F31.81 Bipolar II disorder (principal); F43.12 Post-traumatic stress disorder, chronic | CPT/HCPCS: 90834 ==

== ENCOUNTER → 2021-08-03 13:49 | Outpatient (BNVA) | payer MEDICAID, SELFPAY | PROVIDERS: PCP Nurse Practitioner Family; Visit Provider Counselor Mental Health | DX: F31.81 Bipolar II disorder (principal); F43.12 Post-traumatic stress disorder, chronic | CPT/HCPCS: 90834 ==

== ENCOUNTER → 2021-08-10 13:50 | Outpatient (BNVA) | payer MEDICAID, SELFPAY | PROVIDERS: PCP Nurse Practitioner Family; Visit Provider Counselor Mental Health | DX: F31.81 Bipolar II disorder (principal); F43.12 Post-traumatic stress disorder, chronic | CPT/HCPCS: 90834 ==

== ENCOUNTER → 2021-08-13 12:58 | Outpatient (BNVA) | payer MEDICAID, SELFPAY | PROVIDERS: PCP Nurse Practitioner Family; Visit Provider Specialist | DX: G43.711 Chronic migraine without aura, intractable, with status migrainosus (principal); F31.81 Bipolar II disorder; F17.200 Nicotine dependence, unspecified, uncomplicated | CPT/HCPCS: 64615; J0585 ==

== ENCOUNTER → 2021-08-17 13:42 | Outpatient (BNVA) | payer MEDICAID, SELFPAY | PROVIDERS: PCP Nurse Practitioner Family; Visit Provider Counselor Mental Health | DX: F31.81 Bipolar II disorder (principal); F43.12 Post-traumatic stress disorder, chronic | CPT/HCPCS: 90834 ==

== ENCOUNTER 2021-08-24 17:00 | Outpatient (CLI) | payer MEDICAID, SELFPAY ==
[2021-08-24 18:02] LABS: Basophils % 0.4 %; Eosinophils % 0.5 %; Hematocrit 39.9 % (37.0-47.0); Hemoglobin 12.9 g/dL (11.5-15.3); Lymphocytes # 1.9 10^3/uL (0.8-4.8); Lymphocytes % 24.5 %; Mean Corpuscular HGB Conc 32.3 g/dL (30.0-36.0); Mean Corpuscular Hemoglobin 28.4 pg (28.0-34.0); Mean Corpuscular Volume 87.9 fl (81-99); Mean Platelet Volume 9.9 fL (7.4-10.4); Monocytes # 0.4 10^3/uL (0.2-0.9); Neutrophils # 5.27 10^3/uL (1.8-7.7); Neutrophils % 69.3 %; Nucleated Red Blood Cells % 0 %; Platelet Count 313 10^3/cmm (130-400); Red Blood Count 4.54 10^6/uL (4.1-5.3); Red Cell Distribution Width 11.7 % (12.1-15.1); White Blood Count 7.6 10^3/uL (4.0-10.0)
[2021-08-24 18:38] LABS: Alanine Aminotransferase 7 U/L (0-33); Albumin Level 4.2 g/dL (3.5-5.2); Alkaline Phosphatase 85 IU/L (35-105); Anion Gap 17.8 (5-19); Aspartate Amino Transferase 16 U/L (0-32); Blood Urea Nitrogen 12 mg/dL (6-20); Calcium 9.6 mg/dL (8.5-10.5); Carbon Dioxide 21 mmol/L (22-29); Chloride 100 mmol/L (98-107); Chol HDL Ratio 3.82 mg/dL (0.0-4.40); Cholesterol 252 mg/dL (0-200); Globulin 3.6 g/dL (1.3-4.6); Glucose 169 mg/dL (65-115); HDL Cholesterol 66 mg/dL (60-100); LDL Cholesterol Calculated 135 mg/dL (50-129); LDL HDL Ratio 2.05 RATIO (0.00-3.22); Osmolality Calculated 284 mOsm/kg (285-295); Potassium 3.8 mmol/L (3.5-5.1); Sodium 135 mmol/L (136-145); Thyroid Stimulating Hormone 1.95 uIU/mL (0.27-4.20); Total Bilirubin 0.2 mg/dL (0.15-1.2); Total Protein 7.8 g/dL (6.6-8.7); Triglycerides 253 mg/dL (0-150)
== END 2021-08-24 17:01 | disposition home or self-care (01) ==
PROVIDERS: PCP Nurse Practitioner Family; Visit Provider Psychiatry & Neurology Psychiatry
DX: F31.4 Bipolar disorder, current episode depressed, severe, without psychotic features (principal); Z79.899 Other long term (current) drug therapy
CPT/HCPCS: 36415; 80053; 80061; 80178; 84443; 85025

== ENCOUNTER → 2021-09-03 07:47 | Outpatient (BNVA) | payer MEDICAID, SELFPAY | PROVIDERS: PCP Nurse Practitioner Family; Visit Provider Counselor Mental Health | DX: F31.81 Bipolar II disorder (principal); F43.12 Post-traumatic stress disorder, chronic | CPT/HCPCS: 90834 ==

== ENCOUNTER → 2021-09-17 14:32 | Outpatient (BNVA) | payer MEDICAID, SELFPAY | PROVIDERS: PCP Nurse Practitioner Family; Visit Provider Counselor Mental Health | DX: F31.81 Bipolar II disorder (principal); F43.12 Post-traumatic stress disorder, chronic | CPT/HCPCS: 90834 ==

== ENCOUNTER → 2021-09-23 13:35 | Outpatient (BNVA) | payer MEDICAID, SELFPAY | PROVIDERS: PCP Nurse Practitioner Family; Visit Provider Counselor Mental Health | DX: F31.81 Bipolar II disorder (principal); F43.12 Post-traumatic stress disorder, chronic | CPT/HCPCS: 90834 ==

== ENCOUNTER 2021-09-30 14:14 | Emergency (ER) | payer MEDICAID, SELFPAY ==
[2021-09-30 14:37] VITALS: BP 134/77; PULSE 91; RESP 17; TEMP 36.4; O2SAT 100; BMI 29.2
[2021-09-30 14:59] LABS: Add Urine Microscopic? NO; Charge for UA Resulting for Rev
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
[2021-09-30 15:18] LABS: Bilirubin Urine Neg (Negative); Blood Urine Neg (Negative); Glucose Urine UA Norm (Normal); Ketones Urine 1+ (Negative); Leukocyte Esterase Urine Negative (Negative); Nitrate Urine Negative (Negative); Protein Urine Neg (Negative); Urine Appearance Clear (CLEAR); Urine Color Yellow (Yellow); Urobilinogen Urine Norm (Negative); pH Urine 6 (5-7)
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
[2021-09-30 15:40] LABS: Basophils % 0.3 %; Eosinophils % 0.1 %; Hematocrit 39.6 % (37.0-47.0); Lymphocytes % 25.8 %; Mean Corpuscular HGB Conc 32.8 g/dL (30.0-36.0); Mean Corpuscular Hemoglobin 28.1 pg (28.0-34.0); Mean Corpuscular Volume 85.5 fl (81-99); Mean Platelet Volume 9.5 fL (7.4-10.4); Monocytes # 0.6 10^3/uL (0.2-0.9); Monocytes % 7.4 %; Neutrophils # 5.15 10^3/uL (1.8-7.7); Neutrophils % 66.1 %; Nucleated Red Blood Cells % 0 %; Platelet Count 301 10^3/cmm (130-400); Red Blood Count 4.63 10^6/uL (4.1-5.3); Red Cell Distribution Width 11.9 % (12.1-15.1); White Blood Count 7.8 10^3/uL (4.0-10.0)
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
--- NOTE | 2021-09-30 15:42 | CTR_ITS ---
PROCEDURE INFORMATION: Exam: CT Abdomen And Pelvis Without Contrast Exam date and time: 09/30/2021 5:20 PM Age: 26 years old Clinical indication: Abdominal pain; Additional info: Lower abd pain TECHNIQUE: Imaging protocol: Computed tomography of the abdomen and pelvis without contrast. Radiation optimization: All CT scans at this facility use at least one of these dose optimization techniques: automated exposure control; mA and/or kV adjustment per patient size (includes targeted exams where dose is matched to clinical indication); or iterative reconstruction. COMPARISON: CT abdomen pelvis w con* [id number] 04/11/2018 1:10 AM RADIATION DOSE METRICS: Total DLP (mGy-cm): 1976.49 FINDINGS: Liver: Normal. No mass. Gallbladder and bile ducts: Normal. No calcified stones. No ductal dilation. Pancreas: Normal. No ductal dilation. Spleen: Normal. No splenomegaly. Adrenal glands: Normal. No mass. Kidneys and ureters: Normal. No hydronephrosis. Stomach and bowel: Unremarkable. No obstruction. No mucosal thickening. Appendix: No evidence of appendicitis. Intraperitoneal space: Unremarkable. No free air. No significant fluid collection. Vasculature: Unremarkable. No abdominal aortic aneurysm. Lymph nodes: Unremarkable. No enlarged lymph nodes. Urinary bladder: Unremarkable as visualized. Reproductive: Unremarkable as visualized. Bones/joints: Unremarkable. No acute fracture. Soft tissues: Unremarkable. CT/CT abdomen pelvis con [id number] IMPRESSION: No acute findings.
[2021-09-30 16:15] LABS: Alanine Aminotransferase 10 U/L (0-33); Albumin Level 4.3 g/dL (3.5-5.2); Alkaline Phosphatase 79 IU/L (35-105); Anion Gap 16.8 (5-19); Aspartate Amino Transferase 13 U/L (0-32); Blood Urea Nitrogen 8 mg/dL (6-20); Calcium 9.4 mg/dL (8.5-10.5); Carbon Dioxide 23 mmol/L (22-29); Chloride 102 mmol/L (98-107); Creatinine Clr Calc Pharmacy 149.6408; Globulin 2.5 g/dL (1.3-4.6); Glomerular Filtration Rate 121.8 mL/min (90-130); Glucose 99 mg/dL (65-115); Lipase 57 U/L (13-60); Osmolality Calculated 284 mOsm/kg (285-295); Potassium 3.8 mmol/L (3.5-5.1); Sodium 138 mmol/L (136-145); Total Bilirubin 0.2 mg/dL (0.15-1.2); Total Protein 6.8 g/dL (6.6-8.7)
[2021-09-30 16:30] LABS: HCG, Serum Qual Negative (Negative)
[2021-09-30] MEDS: hyDROXYzine 25 mg Capsule PO (17:20)
[2021-09-30] MEDS: acetaminophen 500 mg Tablet PO (17:37)
[2021-09-30] MEDS: ketorolac 30 mg/mL INJ IM (17:38)
== END 2021-09-30 18:11 | disposition home or self-care (01) ==
PROVIDERS: Emergency Provider Emergency Medicine; PCP Nurse Practitioner Family
DX: R10.9 Unspecified abdominal pain (principal); M25.561 Pain in right knee; V49.40XA Driver injured in collision with unspecified motor vehicles in traffic accident, initial encounter
CPT/HCPCS: 70450; 71045; 72170; 73560; 74176; 80053; 81003; 83690; 84703; 85025; 96372; 99284; J1885

== ENCOUNTER → 2021-10-07 13:40 | Outpatient (BNVA) | payer MEDICAID, SELFPAY | PROVIDERS: PCP Nurse Practitioner Family; Visit Provider Counselor Mental Health | DX: F31.81 Bipolar II disorder (principal); F43.12 Post-traumatic stress disorder, chronic | CPT/HCPCS: 90832 ==

== ENCOUNTER → 2021-10-14 13:42 | Outpatient (BNVA) | payer MEDICAID, SELFPAY | PROVIDERS: PCP Nurse Practitioner Family; Visit Provider Counselor Mental Health | DX: F31.81 Bipolar II disorder (principal); F43.12 Post-traumatic stress disorder, chronic | CPT/HCPCS: 90834 ==

== ENCOUNTER → 2021-10-21 13:45 | Outpatient (BNVA) | payer MEDICAID, SELFPAY | PROVIDERS: PCP Nurse Practitioner Family; Visit Provider Counselor Mental Health | DX: F31.81 Bipolar II disorder (principal); F43.12 Post-traumatic stress disorder, chronic | CPT/HCPCS: 90834 ==

== ENCOUNTER → 2021-10-28 10:26 | Outpatient (BNVA) | payer MEDICAID, SELFPAY | PROVIDERS: PCP Nurse Practitioner Family; Visit Provider Counselor Mental Health | DX: F31.81 Bipolar II disorder (principal); F43.12 Post-traumatic stress disorder, chronic | CPT/HCPCS: 90834 ==

== ENCOUNTER → 2021-11-04 13:46 | Outpatient (BNVA) | payer MEDICAID, SELFPAY | PROVIDERS: PCP Nurse Practitioner Family; Visit Provider Counselor Mental Health | DX: F31.81 Bipolar II disorder (principal); F43.12 Post-traumatic stress disorder, chronic | CPT/HCPCS: 90832 ==

== ENCOUNTER → 2021-11-05 12:44 | Outpatient (BNVA) | payer MEDICAID, SELFPAY | PROVIDERS: PCP Nurse Practitioner Family; Visit Provider Specialist | DX: G43.711 Chronic migraine without aura, intractable, with status migrainosus (principal) | CPT/HCPCS: 64615; J0585 ==

== ENCOUNTER → 2021-11-11 10:11 | Outpatient (BNVA) | payer MEDICAID, SELFPAY | PROVIDERS: PCP Nurse Practitioner Family; Visit Provider Podiatrist Foot & Ankle Surgery | DX: M25.372 Other instability, left ankle (principal); M25.371 Other instability, right ankle | CPT/HCPCS: 99214 ==

== ENCOUNTER 2021-12-07 16:33 | Inpatient (IN) | payer MEDICAID, SELFPAY ==
[2021-12-07 16:51] VITALS: BP 122/86; PULSE 101; RESP 16; TEMP 36.7; O2SAT 97; BMI 30.4
--- NOTE | 2021-12-07 17:08 | ED_ITS ---
HPI - General Adult General: Chief complaint: Psychiatric Symptoms Stated complaint: SI Time Seen by Provider: 12/07/21 16:58 History of Present Illness: HPI: [26]yo patient w/ hx of depression for statement of SI. Patient tells me she is frustrated at work and made statement. Patient tells me that he is currently not suicidal or depressed. Patient tells me that he has no plan. Patient denies any homicidal ideation. For On arrival, the patient is AAOx3 and cooperative with my evaluation. No focal complaints of chest pain, shortness of breath, palpitations, N/V, focal GI/ complaints. Currently denies SI/HI. No complaints of hallucinations. Onset: earlier today Duration: once Location: home Severity: moderate Associated symptoms: Deny chest pain, dyspnea, nausea, rash, palpitations or vomiting Review of Systems Const: Denies: fever(s) or chills Eyes: Denies: change in vision ENMT: Denies: mouth pain Card: Denies: chest pain or palpitations Resp: Denies: dyspnea or non-productive cough GI: Denies: abdominal pain, nausea, vomiting or diarrhea : Denies: dysuria Musc: Denies: extremity pain Skin/Breast: Denies: rash or new lesions Neuro: Denies: weakness in extremities Psych: Reports: other (Normal mood, +statement of SI at work earlier today) [place]/Lymph: Denies: easy bruising PFSH ED PFSH: Medical History (Updated 12/07/21 @ 17:12 by Ryan Mckeon MD) Chronic migraine Denies having aura and follows up with neurology-Dr. Mirian Castillo Hypothyroidism Diagnosed at the age of 14 and has been on medication managed by her primary care provider No pertinent past medical history Denies: diabetes, asthma, hypertension, seizures, DVT/PE PCP: AGUSTIN Triana PTSD (post-traumatic stress disorder) PTSD along with multiple other psychiatric diagnoses of ADHD, bipolar disorder--this is managed by Dr. Flores Surgical History H/O foot surgery (~10/2018) left foot- flat foot [place] teeth extracted Family History Grandmother Heart disease Maternal Breast cancer maternal; age at diagnosis unknown Mother Diabetes Ovarian cancer diagnosed at age 43 Family/Other Family history of thyroid problem Paternal uncle Grandfather Stroke Paternal Hypertension Paternal Denies family history of Colon cancer Hyperlipidemia Uterine cancer Social History Smoking and tobacco status: light tobacco smoker Alcohol intake: never History of recent travel: No Female Reproductive History: Date of last menstrual period: 12/01/21 Physical Exam Const: COMMON NORMALS: alert HENMT: COMMON NORMALS: atraumatic HEAD & SCALP: atraumatic MOUTH: moist mucous membranes not abnormal Eye: COMMON NORMALS: EOMs intact bilaterally and conjunctivae normal CONJUNCTIVA: Yes conjunctivae normal Neck/C-Spine: COMMON NORMALS: full ROM and supple Resp: COMMON NORMALS: normal respiratory effort and clear to auscultation bilaterally AUSCULTATION: clear to auscultation bilaterally Cardio: COMMON NORMALS: regular rate RATE: regular rate GI: COMMON NORMALS: Soft to palpation and non-tender PALPATION: Yes Soft to palpation Extremity: COMMON NORMALS: full ROM Neuro: SENSORIUM/ORIENTATION: Yes alert MOTOR EXAM: No Abnormal motor strength present and Other motor observations present (no focal motor deficits) Psych: COMMON NORMALS: speech normal SPEECH: Yes normal speech MOOD & AFFECT: Yes depressed mood Course Vital Signs: Vital signs: Vital Signs Temperature 98.0 F 12/07/21 16:51 Pulse Rate 101 H 12/07/21 16:51 Respiratory Rate 16 12/07/21 16:51 Blood Pressure 122/86 12/07/21 16:51 Pulse Oximetry 97 12/07/21 16:51 Oxygen Delivery Me thod 12/07/21 16:51 MDM - General Adult Medical Decision Making [26]yo patient w/ hx of depression presenting for statement of SI. Currently denies SI or depression. HDS, exam within normal limit Thoughts are linear and organized, and the patient has no AH/VH, or HI. Clinically the patient displays no overt toxidrome; they are well appearing, with low suspicion for toxic ingestion given history and exam. Symptoms unlikely 2/2 anemia, hypothyroidism, infection, or ICH. Workup: CBC, CMP, Lipase, salicylate/tylenol, HCG, UDS Lab findings: wnl [6:14pm] On reassessment, labs and workup wnl. Patient is hemodynamically stable with no acute medical complaints. Case discussed with psychiatric provider Dr. Shrestha at [facility] psych inpatient with recommendation for admission Disposition: Psych Discharge Plan Discharge Condition: Stable Prescriptions: No Action levothyroxine 25 mcg capsule 25 mcg PO DAILY acetaminophen [Tylenol Extra Strength] 500 mg tablet 1,000 mg PO Q4H PRN (Reason: Pain) lamotrigine 100 mg tablet 50 mg PO BID Rx Instructions: 1/2 TAB IN AM; 1/2 TAB AT NOON hydroxyzine HCl 25 mg tablet See Rx Instructions PO TID Rx Instructions: 25 mg am and noon; 100 mg hs PO three times daily; docusate sodium [Colace] 100 mg capsule 100 mg PO BID dicyclomine 10 mg capsule 10 mg PO QID cetirizine 10 mg tablet 10 mg PO DAILY PRN Invega Sustenna 156 mg/mL syringe 156 mg IM Q30D onabotulinumtoxinA [Botox] IM .every 3 month polyethylene glycol 3350 [Miralax] 17 gram/dose powder 17 g PO .every other day melatonin 10 mg capsule 10 mg PO DAILY norethindrone (contraceptive) [Ortho Micronor] 0.35 mg tablet 0.35 mg PO DAILY Qty: 56 0RF guanfacine 1 mg tablet 1 mg PO TID lithium carbonate 150 mg capsule 300 mg PO TID meloxicam 7.5 mg tablet 7.5 mg PO DAILY clindamycin-benzoyl peroxide 1.2 %(1 % base) -5 % gel 1 applic topical DAILY Qty: 45 5RF Rx Instructions: Apply thin film to face chest and back every morning. May bleach clothes. Ubrelvy 100 mg tablet 100 mg PO ONCE Qty: 90 0RF (DME) low profile articulating AFO to left See Rx Instructions .Route .MEDSUPPLY Qty: 1 0RF Rx Instructions: As directed by alpha and OMega pantoprazole 40 mg tablet,delayed release (DR/EC) 40 mg PO BID lamotrigine 100 mg tablet 150 mg PO BEDTIME albuterol sulfate 90 mcg/actuation HFA aerosol inhaler 2 inh INHALATION Q4H PRN (Reason: shortness of breath or wheezing, cough) Qty: 18 0RF Referrals: Sandy Rutherford FNP [Primary Care Provider] - Coding Level of Care Code ED Weft Straightener for Chg Fwd Exam Comprehensive
[2021-12-07 19:38] LABS: Basophils % 0.3 %; Eosinophils % 0.1 %; Hematocrit 40.9 % (37.0-47.0); Hemoglobin 13.2 g/dL (11.5-15.3); Lymphocytes # 2.3 10^3/uL (0.8-4.8); Lymphocytes % 26.6 %; Mean Corpuscular HGB Conc 32.3 g/dL (30.0-36.0); Mean Corpuscular Hemoglobin 28.1 pg (28.0-34.0); Mean Corpuscular Volume 87.2 fl (81-99); Mean Platelet Volume 9.4 fL (7.4-10.4); Monocytes # 0.7 10^3/uL (0.2-0.9); Monocytes % 8.3 %; Neutrophils # 5.66 10^3/uL (1.8-7.7); Neutrophils % 64.4 %; Nucleated Red Blood Cells % 0 %; Platelet Count 344 10^3/cmm (130-400); Red Blood Count 4.69 10^6/uL (4.1-5.3); Red Cell Distribution Width 12.2 % (12.1-15.1); White Blood Count 8.8 10^3/uL (4.0-10.0)
[2021-12-07 19:42] LABS: HCG, Serum Qual Negative (Negative)
[2021-12-07 20:12] LABS: Alanine Aminotransferase 11 U/L (0-33); Albumin Level 4.2 g/dL (3.5-5.2); Alkaline Phosphatase 97 IU/L (35-105); Anion Gap 13.8 (5-19); Aspartate Amino Transferase 15 U/L (0-32); Blood Urea Nitrogen 11 mg/dL (6-20); Calcium 9.3 mg/dL (8.5-10.5); Carbon Dioxide 25 mmol/L (22-29); Chloride 99 mmol/L (98-107); Globulin 2.7 g/dL (1.3-4.6); Glucose 108 mg/dL (65-115); Lipase 65 U/L (13-60); Osmolality Calculated 278 mOsm/kg (285-295); Potassium 3.8 mmol/L (3.5-5.1); Sodium 134 mmol/L (136-145); Total Bilirubin 0.2 mg/dL (0.15-1.2); Total Protein 6.9 g/dL (6.6-8.7)
[2021-12-07 20:19] LABS: Acetaminophen < 5.0 ug/mL (10-30); Salicylate < 0.3 mg/dL (3-10)
[2021-12-07 20:48] LABS: Amphetamines Screen Urine Negative (Negative); Barbiturates Screen Urine Negative (Negative); Benzodiazepines Screen Urine Negative (Negative); Cocaine Screen Urine Negative (Negative); Opiate Screen Urine Negative (Negative); PCP Screen Urine Negative (Negative); THC Screen Urine Negative (Negative)
[2021-12-07 21:22] VITALS: PULSE 86; RESP 16; O2SAT 96
[2021-12-07 22:33] LABS: Alcohol Level < 10 mg/dL (0-10)
[2021-12-07 22:34] VITALS: BP 123/88; PULSE 99; RESP 16; O2SAT 95
[2021-12-07 22:44] VITALS: BP 130/87; PULSE 89; RESP 18; TEMP 36.8; O2SAT 97
--- NOTE | 2021-12-07 23:01 | PC.NURSE ---
SPOKE WITH GUARDIAN LENA XIAO AT AFTER HOURS NUMBER OF [phone] AND AUTHORIZATION RECEIVED FOR ALL STANDARD MEDICATIONS AND TREATMENT. LENA XIAO AUTHORIZED ANY FURTHER MEDICATION FOR TREATMENT OF THIS PATIENT WHILE IN FACILITY.
[2021-12-07 23:04] VITALS: BMI 30.4
[2021-12-07] MEDS: ondansetron 4 MG Tablet PO (23:30)
[2021-12-07] MEDS: trazodone 50 mg Tablet PO (23:30)
[2021-12-08 06:00] VITALS: BP 104/66; PULSE 57; RESP 16; TEMP 37.1; O2SAT 98
[2021-12-08] MEDS: guanfacine 1 mg Tablet PO ×3 (10:35→21:25)
[2021-12-08] MEDS: docusate sodium 100 mg Capsule PO ×2 (10:35→18:06)
[2021-12-08] MEDS: lamoTRIgine 100 mg Tablet 50 MG PO ×2 (10:35→18:06)
[2021-12-08] MEDS: levothyroxine 75 mcg Tablet PO (10:35)
[2021-12-08] MEDS: dicyclomine 10 mg Capsule PO ×4 (10:35→21:28)
[2021-12-08] MEDS: chlorPROMazine 25 mg Tablet PO ×3 (10:35→21:24)
[2021-12-08] MEDS: lithium carbonate 300 mg Capsule PO ×3 (10:36→21:28)
[2021-12-08] MEDS: meloxicam 7.5 mg tablet 15 MG PO (10:36)
[2021-12-08] MEDS: ondansetron 4 MG Tablet PO ×2 (11:44→18:17)
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
[2021-12-08] MEDS: polyethylene glycol 3350 Pkt 17 gm PO (12:31)
[2021-12-08 14:00] VITALS: BP 117/75; PULSE 116; RESP 20; TEMP 36.8; O2SAT 97
[2021-12-08 18:11] VITALS: PULSE 128; RESP 16; O2SAT 98
[2021-12-08] MEDS: hyDROXYzine 25 mg Capsule 50 MG PO ×2 (19:28→21:31)
[2021-12-08 20:06] VITALS: BP 128/87; PULSE 96; RESP 20; TEMP 36.3; O2SAT 97
[2021-12-08] MEDS: gabapentin 100 mg Capsule 200 MG PO (21:25)
[2021-12-08] MEDS: lamoTRIgine 100 mg Tablet 200 MG PO (21:28)
[2021-12-08] MEDS: pantoprazole DR 40 mg Tablet PO (21:28)
[2021-12-08] MEDS: trazodone 50 mg Tablet PO (21:32)
--- NOTE | 2021-12-08 22:45 | PC.NURSE ---
Trazodone 50mg PO given for sleep at 21:32 Vistaril 50mg PO given at 21:31 for anxiety both with good results.
[2021-12-09 06:00] VITALS: BP 101/66; PULSE 106; RESP 20; TEMP 36.7; O2SAT 97
[2021-12-09] MEDS: lithium carbonate 300 mg Capsule PO (08:34)
[2021-12-09] MEDS: lamoTRIgine 100 mg Tablet 50 MG PO (08:35)
[2021-12-09] MEDS: docusate sodium 100 mg Capsule PO (08:35)
[2021-12-09] MEDS: meloxicam 7.5 mg tablet 15 MG PO (08:35)
[2021-12-09] MEDS: levothyroxine 75 mcg Tablet PO (08:35)
[2021-12-09] MEDS: dicyclomine 10 mg Capsule PO ×2 (08:35→12:26)
[2021-12-09] MEDS: guanfacine 1 mg Tablet PO (08:35)
[2021-12-09] MEDS: chlorPROMazine 25 mg Tablet PO (08:35)
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
[2021-12-09 12:34] VITALS: BP 101/66; PULSE 106; RESP 20; TEMP 36.7; O2SAT 97
--- NOTE | 2021-12-09 16:09 | PC.NURSE ---
STAFF FROM [facility] CALLED REGARDING PT MEDICATIONS. IN DISCHARGE SUMMARY IT STATES NO MEDICATION CHANGES. ATTEMPTED TO CALL NUMBER IN CHART BUT NO VM LISTED.
== END 2021-12-09 12:58 | disposition home or self-care (01) | DRG 885 ==
LOC: ER 20:01 → NP 21:25
PROVIDERS: Admitting Provider Psychiatry & Neurology Psychiatry; Emergency Provider Emergency Medicine; PCP Nurse Practitioner Family; Visit Provider Psychiatry & Neurology Psychiatry
DX: F31.81 Bipolar II disorder (principal); R45.851 Suicidal ideations; F90.9 Attention-deficit hyperactivity disorder, unspecified type; F43.10 Post-traumatic stress disorder, unspecified; G43.709 Chronic migraine without aura, not intractable, without status migrainosus; K21.9 Gastro-esophageal reflux disease without esophagitis; K59.00 Constipation, unspecified; Z81.8 Family history of other mental and behavioral disorders; F17.200 Nicotine dependence, unspecified, uncomplicated
CPT/HCPCS: 80053; 80306; 80307; 83690; 84703; 85025; 94760; 97150; 97165; 99285; Q0161; Q0162

== ENCOUNTER → 2022-01-07 07:57 | Outpatient (BNVA) | payer MEDICAID, SELFPAY | PROVIDERS: PCP Nurse Practitioner Family; Visit Provider Podiatrist Foot & Ankle Surgery | DX: L60.0 Ingrowing nail (principal) | CPT/HCPCS: 11750 ==

== ENCOUNTER → 2022-01-27 14:52 | Outpatient (BNVA) | payer MEDICAID, SELFPAY | PROVIDERS: PCP Nurse Practitioner Family; Visit Provider Podiatrist Foot & Ankle Surgery | DX: L60.0 Ingrowing nail (principal) | CPT/HCPCS: 99213 ==

== ENCOUNTER → 2022-01-28 10:45 | Outpatient (BNVA) | payer MEDICAID, SELFPAY | PROVIDERS: PCP Nurse Practitioner Family; Visit Provider Specialist | DX: G43.709 Chronic migraine without aura, not intractable, without status migrainosus (principal) | CPT/HCPCS: 64615; J0585 ==

== ENCOUNTER → 2022-02-04 11:21 | Outpatient (BNVA) | payer MEDICAID, SELFPAY | PROVIDERS: PCP Nurse Practitioner Family; Visit Provider Podiatrist Foot & Ankle Surgery | DX: L60.0 Ingrowing nail (principal) | CPT/HCPCS: 99213 ==

== ENCOUNTER → 2022-02-25 10:49 | Outpatient (BNVA) | payer MEDICAID, SELFPAY | PROVIDERS: PCP Nurse Practitioner Family; Visit Provider Podiatrist Foot & Ankle Surgery | DX: L60.0 Ingrowing nail (principal) | CPT/HCPCS: 99213 ==

== ENCOUNTER 2022-03-17 14:38 | Outpatient (CLI) | payer MEDICAID, SELFPAY | END 2022-03-17 14:39 | disposition home or self-care (01) | LOC: SPT 14:45 | PROVIDERS: PCP Nurse Practitioner Family; Visit Provider Podiatrist Foot & Ankle Surgery | DX: Z46.89 Encounter for fitting and adjustment of other specified devices (principal); M25.572 Pain in left ankle and joints of left foot; M25.372 Other instability, left ankle; M25.371 Other instability, right ankle | CPT/HCPCS: 97760; 99214; L1902 ==

== ENCOUNTER → 2022-04-20 15:24 | Outpatient (BNVA) | payer MEDICAID, SELFPAY | PROVIDERS: PCP Nurse Practitioner Family; Visit Provider Podiatrist Foot & Ankle Surgery | DX: M25.372 Other instability, left ankle (principal); M25.371 Other instability, right ankle | CPT/HCPCS: 99213 ==

== ENCOUNTER → 2022-04-22 10:17 | Outpatient (BNVA) | payer MEDICAID, SELFPAY | PROVIDERS: PCP Nurse Practitioner Family; Visit Provider Specialist | DX: G43.711 Chronic migraine without aura, intractable, with status migrainosus (principal) | CPT/HCPCS: 64615; 95911; J0585 ==

== ENCOUNTER → 2022-07-15 09:16 | Outpatient (BNVA) | payer MEDICAID, SELFPAY | PROVIDERS: PCP Nurse Practitioner Family; Visit Provider Specialist | DX: G43.711 Chronic migraine without aura, intractable, with status migrainosus (principal) | CPT/HCPCS: 64615; J0585 ==

== ENCOUNTER 2022-09-01 19:34 | Emergency (ER) | payer MEDICAID, SELFPAY ==
[2022-09-01 19:36] VITALS: BP 140/88; PULSE 93; RESP 18; TEMP 36.3; O2SAT 98; BMI 31.2
--- NOTE | 2022-09-01 19:50 | W.ED.SKABFB ---
HPI - Skin/Abscess/Foreign Bdy General: Chief complaint: Skin/Abscess/Foreign Body Stated complaint: sunburn, itchy Time Seen by Provider: 09/01/22 19:39 History of Present Illness: 27-year-old female comes in today with sunburn. Patient has erythema to the face and left forearm. Patient reports that she had ran track today and was in the sun for a prolonged period of time. Patient reports tenderness and itching. Associated symptoms: Deny fever(s) or vomiting Review of Systems General: Reports: 10 or more systems reviewed and unremarkable except in HPI and below Const: Denies: fever(s) Card: Denies: chest pain Resp: Denies: dyspnea GI: Denies: vomiting : Denies: difficulty voiding Musc: Denies: neck pain or back pain Skin/Breast: Reports: erythema PFSH ED PFSH: Medical History Chronic migraine Denies having aura and follows up with neurology-Dr. Vela Depression Depression Hypothyroidism Diagnosed at the age of 14 and has been on medication managed by her primary care provider No pertinent past medical history Denies: diabetes, asthma, hypertension, seizures, DVT/PE PCP: AGUSTIN Triana PTSD (post-traumatic stress disorder) PTSD along with multiple other psychiatric diagnoses of ADHD, bipolar disorder--this is managed by Dr. Flores Surgical History H/O foot surgery (~10/2018) left foot- flat foot [place] teeth extracted Family History Grandmother Heart disease Maternal Breast cancer maternal; age at diagnosis unknown Mother Diabetes Ovarian cancer diagnosed at age 43 Family/Other Family history of thyroid problem Paternal uncle Grandfather Stroke Paternal Hypertension Paternal Denies family history of Colon cancer Hyperlipidemia Uterine cancer Social History Smoking and tobacco status: never smoked Alcohol intake: never Substance/Drug Use: never Physical Exam Const: COMMON NORMALS: alert HENMT: COMMON NORMALS: normocephalic HEAD & SCALP: normocephalic THROAT: posterior oropharynx normal Neck/C-Spine: COMMON NORMALS: full ROM Resp: COMMON NORMALS: normal respiratory effort and clear to auscultation bilaterally AUSCULTATION: clear to auscultation bilaterally GI: COMMON NORMALS: non-tender Extremity: COMMON NORMALS: full ROM Neuro: SENSORIUM/ORIENTATION: Yes alert Skin: COMMON NORMALS: turgor normal NARRATIVE SKIN EXAM: Erythema to the bilateral forearms, worse on the right. Patient also has erythema to the face. Tender to palpation. No blistering or other significant induration is noted. GENERAL SKIN EXAM: turgor normal Course Vital Signs: Vital signs: Vital Signs Temperature 97.4 F L 09/01/22 19:36 Pulse Rate 93 09/01/22 19:36 Respiratory Rate 18 09/01/22 19:36 Blood Pressure 140/88 09/01/22 19:36 Pulse Oximetry 98 09/01/22 19:36 Oxygen Delivery Me thod Room Air 09/01/22 19:36 MDM - Skin/Abscess/Foreign Bdy Medicial Decision Making Patient comes in today with redness to the face and forearms. Patient reports this started this afternoon after track at school. On exam patient is very fair complected girl she has some redness to her face and forearms. Differential diagnosis includes but not limited to sunburn, drug photosensitivity reaction, contact dermatitis. Believe the patient probably has some burn secondary to exposure. Patient has significant fair complexion that may put her at more at risk, patient is also on multiple medications that will also increase her risk for photosensitivity. Recommend avoidance of sun, drink plenty of water, use acetaminophen and ibuprofen for pain, recommend sunburn cream otherwise. Patient and caregiver both reported understanding. Discharge Plan Discharge Patient Disposition: Home Clinical Impression: 1st degree sunburn Condition: Stable Prescriptions: New Sunburnt Plus Pain Relief 4 % gel 1 applic topical QID PRN (Reason: pain) Qty: 118 0RF No Action levothyroxine 25 mcg capsule 75 mcg PO DAILY acetaminophen [Tylenol Extra Strength] 500 mg tablet 1,000 mg PO Q6H PRN (Reason: Pain) hydroxyzine HCl 25 mg tablet See Rx Instructions PO TID Rx Instructions: 25 mg 8AM and 4PM; 100 mg hs docusate sodium [Colace] 100 mg capsule 100 mg PO BID dicyclomine 10 mg capsule 20 mg PO TID cetirizine 10 mg tablet 10 mg PO DAILY Invega Sustenna 156 mg/mL syringe 156 mg IM Q30D onabotulinumtoxinA [Botox] IM .every 3 month polyethylene glycol 3350 [Miralax] 17 gram/dose powder See Rx Instructions .ROUTE .COMPLEX Rx Instructions: 17 g orally EVERY OTHER DAY melatonin 10 mg capsule 10 mg PO BEDTIME guanfacine 1 mg tablet 1 mg PO TID lithium carbonate 150 mg capsule 300 mg PO TID clindamycin-benzoyl peroxide 1.2 %(1 % base) -5 % gel 1 applic topical DAILY Qty: 45 5RF Rx Instructions: Apply thin film to face chest and back every morning. May bleach clothes. mupirocin 2 % ointment 1 applic topical BID Qty: 15 0RF diazepam 10 mg tablet 10 mg PO ONCE Qty: 1 0RF Rx Instructions: Take 30 minutes prior to appointment. lamotrigine 100 mg tablet 200 mg PO BEDTIME albuterol sulfate 90 mcg/actuation HFA aerosol inhaler 2 inh INHALATION Q4H PRN (Reason: shortness of breath or wheezing, cough) Qty: 18 0RF calcium carbonate [Antacid (calcium carbonate)] 200 mg calcium (500 mg) tablet,chewable 1,000 mg PO TID PRN (Reason: Heartburn) omeprazole 20 mg capsule,delayed release(DR/EC) 20 mg PO BID gabapentin 100 mg capsule 200 mg PO BEDTIME meloxicam 15 mg tablet 15 mg PO DAILY chlorpromazine 25 mg tablet 25 mg PO TID Xulane 150-35 mcg/24 hr patch weekly 1 patch transdermal DIRECTED Discharge Orders: Discharge ED (Routine); Ordered 09/01/22 Ordered By: Vipul Larson Referrals: Sandy Rutherford FNP [Primary Care Provider] - Discharge Diet: Usual diet Discharge Activity: Increase activity as tolerated Patient Instructions: Sunburn (ED) Activity Restrictions/Additional Instructions: Use lidocaine gel to the skin for pain relief. Use acetaminophen and ibuprofen for further discomfort. Drink plenty of water with medication. Follow-up with primary care for further instructions. Return to ED for new concerns. Coding Level of Care Code ED Hollock Maker for Marcelle Tyler
[2022-09-01] MEDS: lidocaine 4% cream 5 gm 1 APPLIC TOPICAL (20:29)
== END 2022-09-01 20:31 | disposition home or self-care (01) ==
PROVIDERS: Emergency Provider Nurse Practitioner Family; PCP Nurse Practitioner Family
DX: L55.0 Sunburn of first degree (principal)
CPT/HCPCS: 99283

== ENCOUNTER → 2022-10-21 15:01 | Outpatient (BNVA) | payer MEDICAID, SELFPAY | PROVIDERS: PCP Nurse Practitioner Family; Visit Provider Specialist | DX: G43.711 Chronic migraine without aura, intractable, with status migrainosus (principal) | CPT/HCPCS: 64615; J0585 ==

== ENCOUNTER → 2023-01-20 12:58 | Outpatient (BNVA) | payer MEDICAID, SELFPAY | PROVIDERS: PCP Nurse Practitioner Family; Visit Provider Specialist | DX: G43.711 Chronic migraine without aura, intractable, with status migrainosus (principal) | CPT/HCPCS: 64615 ==

== ENCOUNTER → 2023-03-11 13:32 | Outpatient (BNVA) | payer MEDICAID, SELFPAY | PROVIDERS: PCP Nurse Practitioner Family; Visit Provider Podiatrist Foot & Ankle Surgery | DX: L60.0 Ingrowing nail (principal); M79.672 Pain in left foot | CPT/HCPCS: 11750 ==

== ENCOUNTER → 2023-03-16 07:58 | Outpatient (BNVA) | payer MEDICAID, SELFPAY | PROVIDERS: PCP Nurse Practitioner Family; Visit Provider Nurse Practitioner Family | DX: B07.8 Other viral warts (principal); L70.0 Acne vulgaris; D22.5 Melanocytic nevi of trunk | CPT/HCPCS: 99204 ==

== ENCOUNTER → 2023-03-24 10:33 | Outpatient (BNVA) | payer MEDICAID, SELFPAY | PROVIDERS: PCP Nurse Practitioner Family; Visit Provider Podiatrist Foot & Ankle Surgery | DX: L60.0 Ingrowing nail (principal) | CPT/HCPCS: 99213 ==

== ENCOUNTER → 2023-04-14 12:07 | Outpatient (BNVA) | payer MEDICAID, SELFPAY | PROVIDERS: PCP Nurse Practitioner Family; Visit Provider Specialist | DX: G43.711 Chronic migraine without aura, intractable, with status migrainosus (principal) | CPT/HCPCS: 64615; 64643; J0585 ==

== ENCOUNTER → 2023-04-27 13:20 | Outpatient (BNVA) | payer MEDICAID, SELFPAY | PROVIDERS: PCP Nurse Practitioner Family; Visit Provider Nurse Practitioner Family | DX: B07.8 Other viral warts (principal); L70.0 Acne vulgaris; D22.5 Melanocytic nevi of trunk; B07.0 Plantar wart | CPT/HCPCS: 17110; 99213 ==

== ENCOUNTER → 2023-05-10 14:56 | Outpatient (BNVA) | payer MEDICAID, SELFPAY | PROVIDERS: PCP Nurse Practitioner Family; Visit Provider Podiatrist Foot & Ankle Surgery | DX: B07.9 Viral wart, unspecified (principal) | CPT/HCPCS: 17110 ==

== ENCOUNTER 2023-05-11 09:51 | Outpatient (CLI) | payer MEDICAID, SELFPAY ==
--- NOTE | 2023-05-11 09:58 | FL_ITS ---
WS: [id number] Barium swallow and esophagram, 05/11/2023 Clinical Data: CHOKES WHEN SWALLOWING Comparison: None. Fluoroscopy time: 1min [id number] # of spot films: 22 Findings: The patient swallowed the thick and thin barium, and it flowed through the hypopharynx without hesita tion. No stricture, mass, polyp or erosion was seen. The barium entered the esophagus and there was normal motility throughout. No hiatal hernia, reflux, stricture, polyp, mass, erosion or ulcer was noted. Impression: Normal esophagram.
== END 2023-05-11 09:52 | disposition home or self-care (01) ==
LOC: RAD 09:53
PROVIDERS: PCP Nurse Practitioner Family; Visit Provider Nurse Practitioner Family
DX: R09.89 Other specified symptoms and signs involving the circulatory and respiratory systems (principal)
CPT/HCPCS: 74220

== ENCOUNTER → 2023-06-22 15:35 | Outpatient (BNVA) | payer MEDICAID, SELFPAY | PROVIDERS: PCP Nurse Practitioner Family; Visit Provider Podiatrist Foot & Ankle Surgery | DX: B07.0 Plantar wart (principal); B07.9 Viral wart, unspecified | CPT/HCPCS: 17110 ==

== ENCOUNTER → 2023-07-14 11:27 | Outpatient (BNVA) | payer MEDICAID, SELFPAY | PROVIDERS: PCP Nurse Practitioner Family; Visit Provider Specialist | DX: G43.711 Chronic migraine without aura, intractable, with status migrainosus (principal) | CPT/HCPCS: 64615; J0585 ==

== ENCOUNTER → 2023-08-23 10:14 | Outpatient (BNVA) | payer MEDICAID, SELFPAY | PROVIDERS: PCP Nurse Practitioner Family; Visit Provider Podiatrist Foot & Ankle Surgery | DX: B07.0 Plantar wart (principal); B07.9 Viral wart, unspecified | CPT/HCPCS: 17110 ==

== ENCOUNTER → 2023-10-20 11:30 | Outpatient (BNVA) | payer MEDICAID, SELFPAY | PROVIDERS: PCP Nurse Practitioner Family; Visit Provider Specialist | DX: F41.9 Anxiety disorder, unspecified (principal); G43.711 Chronic migraine without aura, intractable, with status migrainosus | CPT/HCPCS: 64615; J0585 ==

== ENCOUNTER 2023-12-04 15:42 | Emergency (ER) | payer MEDICAID, SELFPAY ==
[2023-12-04 16:03] VITALS: BP 118/74; PULSE 101; RESP 16; TEMP 36.7; O2SAT 100
--- NOTE | 2023-12-04 16:48 | ED_ITS ---
HPI - Fall General: Chief Complaint: Fall Stated Complaint: Fall hit left elbow and head Time Seen by Provider: 12/04/23 16:48 History of Present Illness: 28-year-old female comes in today with i njury to the left elbow and occipital scalp. Patient slipped on a wet floor coming down on her elbow and back of her head. Patient denies any loss of consciousness. Patient was able ambulate and reports no significant headache at this time. Patient does have a 2 cm laceration to the left elbow. Patient moves elbow without difficulty. Review of Systems General: Reports: 10 or more systems reviewed and unremarkable except in HPI and below PFSH ED PFSH: Medical History Allergic rhinitis due to allergen Depression Depression No pertinent past medical history Denies: diabetes, asthma, hypertension, seizures, DVT/PE PCP: AGUSTIN Triana Hypothyroidism Diagnosed at the age of 14 and has been on medication managed by her primary care provider PTSD (post-traumatic stress disorder) PTSD along with multiple other psychiatric diagnoses of ADHD, bipolar disorder--this is managed by Dr. Flores Chronic migraine Denies having aura and follows up with neurology-Dr. Vela Surgical History H/O foot surgery (~10/2018) left foot- flat foot [place] teeth extracted Family History Grandmother Heart disease Maternal Breast cancer maternal; age at diagnosis unknown Mother Diabetes Ovarian cancer diagnosed at age 43 Family/Other Family history of thyroid problem Paternal uncle Grandfather Stroke Paternal Hypertension Paternal Denies family history of Colon cancer Hyperlipidemia Uterine cancer Social History Smoking and tobacco/nicotine status: never used tobacco/nicotine Alcohol intake: never Substance/Drug Use: never Physical Exam Const: COMMON NORMALS: alert HENMT: COMMON NORMALS: normocephalic HEAD & SCALP: normocephalic and hematoma (Occipital scalp) Neck/C-Spine: COMMON NORMALS: full ROM CERVICAL SPINE: Yes cervical ROM normal and No Cervical spine tenderness Chest: COMMONS NORMALS: normal inspection of the chest Resp: COMMON NORMALS: normal respiratory effort and clear to auscultation bilaterally AUSCULTATION: clear to auscultation bilaterally Cardio: COMMON NORMALS: regular rate and regular rhythm RATE: regular rate RHYTHM: regular rhythm GI: COMMON NORMALS: non-tender Back/Pelvis: COMMON NORMALS: thoracic and lumbar spine normal to inspection Extremity: COMMON NORMALS: full ROM LEFT UPPER EXTREMITY: Yes elbow joint (2 cm laceration posterior elbow) Left elbow: Yes inspection, Yes palpation, Yes ROM and Yes neurovascular exam Neuro: SENSORIUM/ORIENTATION: Yes alert Skin: TRAUMA: laceration (2 cm left elbow) linear Procedures Laceration Laceration 1: Site: upper extremity Side (If applicable): left Size (cm): 2 Description: linear Depth: simple, single layer Local Anesthetic: lidocaine 1% Amount of anesthesia used (mL): 4 Pre-repair: wound explored and irrigated extensively Skin layer closed with: nylon Size (cm): 4-0 Number of sutures: 1 Technique: horizontal mattress Course Vital Signs: Vital signs: Vital Signs Temperature 98.1 F 12/04/23 16:03 Pulse Rate 101 H 12/04/23 16:03 Respiratory Rate 16 12/04/23 16:03 Blood Pressure 118/74 12/04/23 16:03 Pulse Oximetry 100 12/04/23 16:03 MDM - Fall Medical Decision Making Patient comes in today for injury to the left elbow. On exam patient appears nontoxic. Patient has a 2 cm superficial laceration to the left elbow. Normal range of motion. No foreign body within the wound. Pulses and sensation are intact distally. Differential diagnosis fracture, foreign body, laceration. No lacerations are noted. No severe injury or illness was noted. Wound was closed with suture. Patient tolerated well. Patient discharged back to home with caregiver staff reporting understanding of care plan. No radiology studies performed this visit Discharge Plan Discharge Condition: Stable Prescriptions: No Action levothyroxine 25 mcg capsule 75 mcg PO DAILY acetaminophen [Tylenol Extra Strength] 500 mg tablet 1,000 mg PO Q6H PRN (Reason: Pain) hydroxyzine HCl 25 mg tablet See Rx Instructions PO TID Rx Instructions: 25 mg 8AM and 4PM; 100 mg hs docusate sodium [Colace] 100 mg capsule 100 mg PO BID dicyclomine 10 mg capsule 20 mg PO TID Invega Sustenna 156 mg/mL syringe 156 mg IM Q30D onabotulinumtoxinA [Botox] IM .every 3 month polyethylene glycol 3350 [Miralax] 17 gram/dose powder See Rx Instructions .ROUTE .COMPLEX Rx Instructions: 17 g orally EVERY OTHER DAY melatonin 10 mg capsule 10 mg PO BEDTIME guanfacine 1 mg tablet 1 mg PO TID lithium carbonate 150 mg capsule 300 mg PO TID clindamycin-benzoyl peroxide 1.2 %(1 % base) -5 % gel 1 applic topical DAILY Qty: 45 5RF Rx Instructions: Apply thin film to face chest and back every morning. May bleach clothes. Botox 100 unit recon soln 155 unit SUBCUT ONCE Qty: 2 0RF imiquimod 5 % cream in packet topical promethazine-DM 6.25-15 mg/5 mL syrup 5 ml PO Q4H PRN (Reason: cough) Qty: 118 0RF Rx Instructions: Do not exceed more than 30ml/24hour period (6 doses) mupirocin 2 % ointment 1 applic topical BID Qty: 15 0RF prazosin 2 mg capsule 2 mg PO DAILY alprazolam 0.5 mg tablet 0.5 mg PO BID Qty: 2 3RF Rx Instructions: Take 1 when you arrive and may repeat lamotrigine 100 mg tablet 200 mg PO BEDTIME albuterol sulfate 90 mcg/actuation HFA aerosol inhaler 2 inh INHALATION Q4H PRN (Reason: shortness of breath or wheezing, cough) Qty: 18 0RF calcium carbonate [Antacid (calcium carbonate)] 200 mg calcium (500 mg) tablet,chewable 1,000 mg PO TID PRN (Reason: Heartburn) omeprazole 20 mg capsule,delayed release(DR/EC) 20 mg PO BID gabapentin 100 mg capsule 200 mg PO BEDTIME meloxicam 15 mg tablet 15 mg PO DAILY chlorpromazine 25 mg tablet 25 mg PO TID Xulane 150-35 mcg/24 hr patch weekly 1 patch transdermal DIRECTED Sunburnt Plus Pain Relief 4 % gel 1 applic topical QID PRN (Reason: pain) Qty: 118 0RF Referrals: Sandy Rutherford FNP [Primary Care Provider] - Coding Level of Care Code ED Waiter And Cashier for Chg Nayeli
[2023-12-04 17:25] VITALS: BP 129/96; PULSE 83; O2SAT 98
== END 2023-12-04 17:26 | disposition home or self-care (01) ==
PROVIDERS: Emergency Provider Nurse Practitioner Family; PCP Nurse Practitioner Family
DX: S51.012A Laceration without foreign body of left elbow, initial encounter (principal); S00.03XA Contusion of scalp, initial encounter; W01.0XXA Fall on same level from slipping, tripping and stumbling without subsequent striking against object, initial encounter
CPT/HCPCS: 12001; 99282

== ENCOUNTER → 2024-01-19 11:30 | Outpatient (BNVA) | payer MEDICAID, SELFPAY | PROVIDERS: PCP Nurse Practitioner Family; Visit Provider Specialist | DX: F41.9 Anxiety disorder, unspecified (principal); G43.709 Chronic migraine without aura, not intractable, without status migrainosus; G43.711 Chronic migraine without aura, intractable, with status migrainosus | CPT/HCPCS: 64615; J0585 ==

== ENCOUNTER → 2024-03-14 10:30 | Outpatient (BNVA) | payer MEDICAID, SELFPAY | PROVIDERS: PCP Nurse Practitioner Family; Visit Provider Podiatrist Foot & Ankle Surgery | DX: L60.0 Ingrowing nail (principal) | CPT/HCPCS: 99213 ==

== ENCOUNTER → 2024-03-27 15:11 | Outpatient (BNVA) | payer MEDICAID, SELFPAY | PROVIDERS: PCP Nurse Practitioner Family; Visit Provider Podiatrist Foot & Ankle Surgery | DX: L60.0 Ingrowing nail (principal) | CPT/HCPCS: 99213 ==

== ENCOUNTER → 2024-04-27 12:39 | Outpatient (BNVA) | payer MEDICAID, SELFPAY | PROVIDERS: PCP Nurse Practitioner Family; Visit Provider Specialist | DX: F41.9 Anxiety disorder, unspecified (principal); G43.711 Chronic migraine without aura, intractable, with status migrainosus; G43.709 Chronic migraine without aura, not intractable, without status migrainosus | CPT/HCPCS: 64615; J0585 ==

== ENCOUNTER → 2024-07-27 12:13 | Outpatient (BNVA) | payer MEDICAID, SELFPAY | PROVIDERS: PCP Nurse Practitioner Family; Visit Provider Specialist | DX: G43.711 Chronic migraine without aura, intractable, with status migrainosus (principal); F41.9 Anxiety disorder, unspecified | CPT/HCPCS: 64615; J0585; J9999 ==

== ENCOUNTER 2024-10-16 17:38 | Emergency (ER) | payer MEDICAID, SELFPAY ==
[2024-10-16 17:44] VITALS: BP 119/84; PULSE 79; RESP 20; TEMP 36.5; O2SAT 99; BMI 30.3
[2024-10-16] MEDS: INVEGA SUSTENNA 234 MG 1 EACH IM (19:43)
--- NOTE | 2024-10-16 19:47 | W.ED.GENADLT ---
HPI - General Adult General: Chief complaint: General Medical Stated complaint: I/m injection Time Seen by Provider: 10/16/24 19:01 Source: patient Mode of arrival: ambulatory Limitations: no limitations History of Present Illness: 29yo female presents with caregiver to have her home Invega shot administered. Patient states she could not get into her family doctor for another 10+ days and is planning to go out of state at the end of this week. She did go to multiple clinics today, but no one could administer the medication. Patient states her medication was due to be administered yesterday. She denies any other concerns at this time. Associated symptoms: Deny chest pain or dyspnea Related Data Home Medications ?Medication ?Instructions ?Recorded ?Confirmed acetaminophen 500 mg tablet 1,000 mg PO Q6H PRN Pain 06/09/19 08/15/24 (Tylenol Extra Strength) levothyroxine 25 mcg capsule 75 mcg PO DAILY 06/09/19 08/15/24 lithium carbonate 150 mg capsule 300 mg PO TID 01/07/20 08/15/24 dicyclomine 10 mg capsule 20 mg PO TID ABDOMINAL PAIN 01/02/21 08/15/24 docusate sodium 100 mg capsule 100 mg PO BID 02/24/21 08/15/24 (Colace) guanfacine 1 mg tablet 1 mg PO TID 02/24/21 08/15/24 hydroxyzine HCl 25 mg tablet See Rx Instructions PO TID 02/24/21 08/15/24 lamotrigine 100 mg tablet 200 mg PO BEDTIME 02/24/21 08/15/24 onabotulinumtoxinA [Botox] IM .every 3 month 02/24/21 08/15/24 paliperidone palmitate 156 mg/mL 156 mg IM Q30D 02/24/21 08/15/24 intramuscular syringe (Invega Sustenna) polyethylene glycol 3350 17 See Rx Instructions .Route .COMPLEX 05/11/21 08/15/24 gram/dose oral powder (Miralax) chlorpromazine 25 mg tablet 25 mg PO TID 12/08/21 08/15/24 gabapentin 100 mg capsule 200 mg PO BEDTIME 12/08/21 08/15/24 meloxicam 15 mg tablet 15 mg PO DAILY 12/08/21 08/15/24 omeprazole 20 mg capsule,delayed 20 mg PO BID 12/08/21 08/15/24 release prazosin 2 mg capsule 2 mg PO DAILY 10/20/23 08/15/24 dextromethorphan HBr 30 mg/5 mL mg PO 04/27/24 08/15/24 oral liquid Previous Rx's ?Medication ?Instructions ?Recorded albuterol sulfate 90 mcg/actuation 2 inh inhalation Q4H PRN shortness 12/28/19 aerosol inhaler of breath or wheezing, cough #18 grams onabotulinumtoxinA 100 unit 155 unit SUBCUT ONCE #2 ea 01/05/23 solution for injection (Botox) alprazolam 0.5 mg tablet 0.5 mg PO BID needlephobia #2 tabs 01/19/24 Allergies Allergy/AdvReac Type Severity Reaction Status Date / Time divalproex sodium (From Allergy dizziness Verified 08/15/24 11:10 Depakote) and rash Review of Systems Const: Denies: fever(s), chills or body aches Card: Denies: chest pain Resp: Denies: dyspnea PFSH ED PFSH: Medical History Allergic rhinitis due to allergen Depression Depression No pertinent past medical history Denies: diabetes, asthma, hypertension, seizures, DVT/PE PCP: AGUTSIN Triana Hypothyroidism Diagnosed at the age of 14 and has been on medication managed by her primary care provider PTSD (post-traumatic stress disorder) PTSD along with multiple other psychiatric diagnoses of ADHD, bipolar disorder--this is managed by Dr. Flores Chronic migraine Denies having aura and follows up with neurology-Dr. Vela Surgical History H/O foot surgery (~10/2018) left foot- flat foot [place] teeth extracted Family History Grandmother Heart disease Maternal Breast cancer maternal; age at diagnosis unknown Mother Diabetes Ovarian cancer diagnosed at age 43 Family/Other Family history of thyroid problem Paternal uncle Grandfather Stroke Paternal Hypertension Paternal Denies family history of Colon cancer Hyperlipidemia Uterine cancer Social History Smoking and tobacco/nicotine status: never used tobacco/nicotine Alcohol intake: never Substance/Drug Use: never Physical Exam Const: COMMON NORMALS: no acute distress, patient oriented x3 and alert GENERAL APPEARANCE: cooperative ORIENTATION/CONSCIOUSNESS: Yes awake OTHER: Patient is ambulatory to fast-track recliner with no assistance. She is interactive with exam appropriately. Caregiver is at bedside HENMT: COMMON NORMALS: normocephalic HEAD & SCALP: normocephalic Chest: CHEST: Yes Symmetrical chest wall rise Resp: COMMON NORMALS: normal respiratory effort EFFORT & INSPECTION: Yes able to speak in complete sentences Neuro: COMMON NORMALS: patient oriented x3 SENSORIUM/ORIENTATION: Yes alert Course Vital Signs: Vital signs: Vital Signs Temperature 97.7 F 10/16/24 17:44 Pulse Rate 79 10/16/24 17:44 Respiratory Rate 20 H 10/16/24 17:44 Blood Pressure 119/84 10/16/24 17:44 Pulse Oximetry 99 10/16/24 17:44 Oxygen Delivery Me thod Room Air 10/16/24 17:44 MDM - General Adult Medical Decision Making 29yo female presents with caregiver to have her home Invega shot administered. Patient states she could not get into her family doctor for another 10+ days and is planning to go out of state at the end of this week. Patient denies any other concerns at this time. Patient is nontoxic in appearance. Vital signs are stable. Patient's home medication was verified by pharmacy and administered in the emergency department. Encouraged patient to make an appointment with her family doctor for next month's injection. Return precautions provided. Patient and caregiver state understanding and have no further questions or concerns at this time. Medical Records I reviewed the patient's medical records. No radiology studies performed this visit Discharge Plan Discharge Patient Disposition: Home Clinical Impression: Medication administered Condition: Stable Prescriptions: No Action levothyroxine 25 mcg capsule 75 mcg PO DAILY acetaminophen [Tylenol Extra Strength] 500 mg tablet 1,000 mg PO Q6H PRN (Reason: Pain) hydroxyzine HCl 25 mg tablet See Rx Instructions PO TID Rx Instructions: 25 mg 8AM and 4PM; 100 mg hs docusate sodium [Colace] 100 mg capsule 100 mg PO BID dicyclomine 10 mg capsule 20 mg PO TID Invega Sustenna 156 mg/mL syringe 156 mg IM Q30D onabotulinumtoxinA [Botox] IM .every 3 month polyethylene glycol 3350 [Miralax] 17 gram/dose powder See Rx Instructions .ROUTE .COMPLEX Rx Instructions: 17 g orally EVERY OTHER DAY guanfacine 1 mg tablet 1 mg PO TID lithium carbonate 150 mg capsule 300 mg PO TID Botox 100 unit recon soln 155 unit SUBCUT ONCE Qty: 2 0RF alprazolam 0.5 mg tablet 0.5 mg PO BID Qty: 2 3RF Rx Instructions: Take 1 when you arrive and may repeat prazosin 2 mg capsule 2 mg PO DAILY dextromethorphan HBr 30 mg/5 mL liquid PO lamotrigine 100 mg tablet 200 mg PO BEDTIME albuterol sulfate 90 mcg/actuation HFA aerosol inhaler 2 inh INHALATION Q4H PRN (Reason: shortness of breath or wheezing, cough) Qty: 18 0RF omeprazole 20 mg capsule,delayed release(DR/EC) 20 mg PO BID gabapentin 100 mg capsule 200 mg PO BEDTIME meloxicam 15 mg tablet 15 mg PO DAILY chlorpromazine 25 mg tablet 25 mg PO TID Discharge Orders: Discharge ED (Routine); Ordered 10/16/24 Ordered By: Beck Martinez Referrals: Sandy Rutherford FNP [Primary Care Provider, Unknown] Activity Restrictions/Additional Instructions: Your home Invega was administered in the emergency department today Please contact your doctor to schedule appointment for your next injection Return to the emergency department as needed Print Language: Romansh Coding Level of Care Code ED Records Technician for Marcelle Tyler
[2024-10-16 20:15] VITALS: BP 121/88; PULSE 79; RESP 17; TEMP 37.2; O2SAT 98
== END 2024-10-16 21:23 | disposition home or self-care (01) ==
PROVIDERS: Emergency Provider Nurse Practitioner; PCP Nurse Practitioner Family
DX: Z76.89 Persons encountering health services in other specified circumstances (principal); Z79.899 Other long term (current) drug therapy; Z79.890 Hormone replacement therapy; E03.9 Hypothyroidism, unspecified
CPT/HCPCS: 96372; 99284

== ENCOUNTER → 2024-11-29 13:09 | Outpatient (BNVA) | payer MEDICAID, SELFPAY | PROVIDERS: PCP Nurse Practitioner Family; Visit Provider Specialist | DX: G43.711 Chronic migraine without aura, intractable, with status migrainosus (principal) | CPT/HCPCS: 64615; J0585; J9999 ==